=== PATIENT | male | born 1960 | race Caucasian/White ===

== ENCOUNTER 2019-05-09 08:07 | Inpatient (IN) | payer MEDICARE, OTHER ==
[2019-05-09] MEDS ORDERED: Acetaminophen 500 MG TAB ONE (08:46)
[2019-05-09] MEDS ORDERED: cefTRIAXone\\ROCEPHIN 1 GM VIAL ONE (08:46)
[2019-05-09 09:18] LABS: #Eosinphils 0.2 thou/uL (0.0-0.7); #Lymphocytes 0.8 thou/uL (1.20-3.40); #Monocytes 0.6 thou/uL (0.11-0.59); #Neutrophils 2.8 thou/uL (1.40-6.50); %Basophils 0.7 % (0.0-1.0); %Eosinophils 3.6 % (0.0-10.0); %Lymphocytes 18.1 % (21.0-51.0); %Monocytes 14.5 % (0.0-10.0); %Neutrophils 63.1 % (42.0-75.0); Hemoglobin 13.3 g/dL (14.0-18.0); Mean Corpuscular HGB CONC 32.8 g/dL (32.0-36.0); Mean Corpuscular Hemoglobin 29.1 pg (27.0-31.0); Mean Corpuscular Volume 88.8 fL (78.0-98.0); Mean Platelet Volume 7.6 fL (7.4-10.4); Platelet Count 161 thou/uL (130-400); RBC Distribution Width 16.8 % (11.5-14.5); Red Blood Cell (RBC) Count 4.56 mill/uL (4.70-6.10); White Blood Cell (WBC) Count 4.4 thou/uL (4.8-10.8)
--- NOTE | 2019-05-09 09:28 | RAD ---
EXAM: Single view of the chest HISTORY: Chest pain COMPARISON: 08/17/2016 FINDINGS: Single view of the chest shows an enlarged but stable cardiomediastinal silhouette. The pa tient is status post sternotomy. The pacemaker is unchanged in position. There is no evidence of consolidation, mass, or pleural effusion. The bones are unremarkable. IMPRESSION: Cardiomegaly without evidence of acute cardiopulmonary disease
[2019-05-09 09:38] LABS: ALT (SGPT) 8 U/L (8-55); AST (SGOT) 21 U/L (5-34); Albumin 3.6 g/dL (3.4-4.8); Alkaline Phosphatase 114 U/L (40-150); Anion Gap 14 mmol/L (10-20); BUN (Urea Nitrogen) 28 mg/dL (8.4-25.7); Bilirubin, Total 1.5 mg/dL (0.2-1.2); Calc. Creatinine Clearance 0 mL/min (70-130); Calcium 9.7 mg/dL (7.8-10.44); Carbon Dioxide 28 mmol/L (23-31); Chloride 100 mmol/L (98-107); Estimated GFR-MDRD 73; Globulin 4.6 g/dL (2.4-3.5); Glucose 112 mg/dL (80-115); Potassium 3.1 mmol/L (3.5-5.1); Protein, Total 8.2 g/dL (5.8-8.1); Sodium 139 mmol/L (136-145)
[2019-05-09] MEDS ORDERED: Potassium Chloride 20 MEQ TAB ONE (11:29)
[2019-05-09] MEDS ORDERED: traMADol HCl 50 MG TAB ONE (11:29)
[2019-05-09 11:42] LABS: Bilirubin Negative (Negative); Blood, Urine Negative (Negative); Clarity Clear (Clear); Glucose, Urine (Dipstick) Normal (Negative); Leukocyte Negative Leu/uL (Negative); Nitrite Negative (Negative); Protein, Urine (Dipstick) 20 mg/dL (Neg-Trace); Urobilinogen 3 mg/dL (Less than 2)
[2019-05-09 12:13] LABS: Troponin I 0.019 ng/mL (< 0.028)
[2019-05-09] MEDS ORDERED: Ondansetron ODT 4 MG TAB PO PRN (13:25)
[2019-05-09] MEDS ORDERED: Acetaminophen 325 MG TAB PO PRN (13:25)
[2019-05-09] MEDS ORDERED: Ondansetron PF 4 MG/2 ML Vial IVP PRN (13:25)
[2019-05-09 15:11] LABS: Troponin I Less than 0.010 ng/mL (< 0.028)
[2019-05-09] MEDS ORDERED: Bisacodyl 10 MG SUPP PR PRN (15:37)
[2019-05-09] MEDS ORDERED: HYDROcodone/Acetaminophen 5/325 mg Tablet PO PRN (15:37)
[2019-05-09] MEDS ORDERED: Enoxaparin Sodium 40 MG/0.4 ML SYRINGE SC SCH (15:45)
[2019-05-09] MEDS ORDERED: Nystatin Powder 15 GM BOT TOP PRN (15:47)
[2019-05-09] MEDS ORDERED: Furosemide 40 MG/4 ML VIAL SLOW IVP SCH (16:00)
--- NOTE | 2019-05-09 17:09 | HP ---
PRIMARY CARE PROVIDER: None. CHIEF COMPLAINT: Worsening leg swelling and right leg pain. HISTORY OF PRESENT ILLNESS: A 59-year-old morbidly obese male patient with known history of ischemic cardiomyopathy with ejection fraction of 35% on last each echo, amongst others including chronic venous insufficiency, who presents with worsening leg swelling as well as worsening right leg pain. The patient reportedly developed a blister on the right anterior black several days ago. Last night, he reportedly scrapped the area while getting into his bed and de-roofed the blister and has been having severe pain rated 9 to 10/10 since last night. He presented to the emergency room earlier today due to worsening pain. He was found to have some erythema and some drainage suggestive of cellulitis and was given antibiotics as well as analgesic. He was admitted for further evaluation and treatment. The patient reportedly missed none out of his diuretics and noticed worsening leg swelling. He however denied chest pain, worsening shortness of breath, palpitation, headache, fevers, chills, nausea, vomiting, dysuria, hematuria, change in bowel habit, or abdominal pain. PAST MEDICAL HISTORY: 1. Ischemic cardiomyopathy with ejection fraction of 30% to 35% on echo of 2016. 2. Coronary artery disease status post CABG. 3. Type 2 diabetes mellitus. 4. Morbid obesity. 5. Dyslipidemia. 6. Hypertension. 7. PTSD. 8. Mood disorder. 9. Depression. 10. Chronic venous stasis dermatitis. 11. Chronic bilateral leg edema. 12. Chronic paroxysmal atrial fibrillation. PAST SURGICAL HISTORY: 1. CABG. 2. Hernia repair. 3. Left thoracentesis. 4. Pacemaker placement. 5. Appendectomy. 6. Tonsillectomy. FAMILY HISTORY: Significant for diabetes in the family. SOCIAL HISTORY: 1. The patient lives alone. He however used to be homeless. He travels between [place] and [place]. 2. He smokes currently 10 cigarettes per day. 3. He denied recreational drug use. 4. He wants to be full code with his friend Sal Trinh as the surrogate decision maker. ALLERGIES: NO KNOWN DRUG ALLERGIES REPORTED. HOME MEDICATIONS: 1. Amiodarone 200 mg p.o. daily. 2. Aspirin 81 mg p.o. daily. 3. Lipitor 80 mg p.o. daily. 4. Carvedilol 3.125 p.o. b.i.d. 5. Enalapril 2.5 mg p.o. daily. 6. Lasix 80 mg p.o. daily. 7. Gabapentin 300 mg p.o. daily at bedtime. 8. Metolazone 10 mg p.o. daily. 9. Potassium chloride 10 mEq p.o. b.i.d. Review of previous hospitalization showed the patient has been on spironolactone and anticoagulation, but that is not reflected in current home medication. REVIEW OF SYSTEMS: A 12-point review of system performed was negative other than pertinent positives and negatives included in the history of present illness. PHYSICAL EXAMINATION: VITAL SIGNS: On presentation to the emergency room, initial vitals showed BP 108/73, pulse 75, respiratory rate 95, SpO2 of 95% on room air, temperature 97.5. Most recent vitals showed temperature 98.1, pulse 73, respiratory rate 18, SpO2 of 92 on room air, blood pressure 133/86. GENERAL: Morbidly obese male, in no obvious distress. Afebrile. Anicteric. Acyanotic. HEENT: Normocephalic, atraumatic. Pupils are reacting to light. Oral mucosa is moist. NECK: Supple, nontender with full range of motion. Mild JVD noted. No lymphadenopathy or masses appreciated. CARDIOLOGY: Regular rhythm and rate with soft systolic murmur. RESPIRATORY: Fair air entry bilaterally with few transmitted sounds. No obvious crackle or respiratory distress was appreciated. Air entry however is decreased at both bases. GI: Morbidly obese with pannus and intertriginous candidiasis. Bowel sound is normoactive. EXTREMITIES: Moderate bilateral leg edema with some chronic venous stasis dermatitis as well as some crust and scabs, especially on the left side. A large de-roofed blister with some erythema is noted on the right side. Some excoriations with some drainage are also noticed on the posterior aspect of right leg. NEUROLOGIC: Conscious, alert, oriented x3 with appropriate mental status. Cranial nerves 2 through 12 are grossly intact. DIAGNOSTIC DATA: CBC showed WBC count of 4.4, hemoglobin of 13.3, MCV of 88.8, platelets of 161. BMP showed sodium 139, potassium 3.1, chloride 100, CO2 of 28, BUN 28, creatinine 1.03, glucose 112, calcium 9.7, total bilirubin 1.5, AST 21, ALT alkaline phosphatase 114, total protein 8.2, albumin 3.6, globulin 4.6. Cardiac markers showed negative serial troponin with BNP of 796.9. Urinalysis showed clear urine with pH of 6.0, specific gravity of 1.022, urine protein of 20 mg/dL, normal glucose, negative ketone blood, bilirubin, leukocyte esterase and nitrite. EKG showed paced rhythm. Chest x-ray showed stable cardiomegaly with no evidence of consolidation, mass, or pleural effusion. ASSESSMENT: 1. Acute on chronic combined systolic and diastolic heart failure. 2. Ischemic cardiomyopathy with ejection fraction of 30% to 35% on EKG of 2016. 3. Right leg wound with infection and cellulitis. 4. Chronic bilateral leg edema with chronic venous stasis dermatitis and skin breakdown. 5. Morbid obesity. 6. Intertriginous candidiasis. PLAN: 1. We will start diuretic therapy with Lasix 40 mg IV b.i.d. 2. We will also start antibiotic therapy with clindamycin 600 mg every 8 hours. 3. Wound Care will be consulted to help with wound management. 4. We will also get echocardiogram to reassess cardiac function. 5. We will elevate both lower extremities. 6. We will monitor renal function with diuretic therapy. 7. We will continue RAAS aris as well as beta aris and statin. 8. PT/OT will be consulted to help ambulate the patient. 9. DVT prophylaxis with Lovenox will be provided. 10. Cardiac diet will be provided as well. 11. The patient wants to be full code. Friend Sal is the surrogate decision maker. 12. It is anticipated that the patient will be hospitalized for more than three midnights. Job ID: [id number]
[2019-05-09] MEDS: Nicotine 14 MG PATCH TD SCH (17:31)
[2019-05-09] MEDS: Zolpidem Tartrate 5 MG TAB PO PRN (20:40)
[2019-05-09] MEDS: traMADol HCl 50 MG TAB PO PRN (20:41)
[2019-05-09] MEDS: Famotidine 20 MG TAB PO SCH (20:42)
[2019-05-09] MEDS: Clindamycin/D5W 600 MG in Premix Bag 1 BAG IVPB SCH (20:44)
[2019-05-10] MEDS: Clindamycin/D5W 600 MG in Premix Bag 1 BAG IVPB SCH ×3 (07:11→20:30)
[2019-05-10] MEDS ORDERED: Clindamycin/D5W 600 mg/50 ml Premix Bag ONE (07:13)
[2019-05-10] MEDS: Famotidine 20 MG TAB PO SCH ×2 (09:09→20:29)
[2019-05-10] MEDS: Furosemide 40 MG/4 ML VIAL SLOW IVP SCH ×2 (09:09→15:22)
[2019-05-10 09:39] LABS: ALT (SGPT) 8 U/L (8-55); AST (SGOT) 19 U/L (5-34); Albumin 3.5 g/dL (3.4-4.8); Alkaline Phosphatase 109 U/L (40-150); Anion Gap 10 mmol/L (10-20); BUN (Urea Nitrogen) 22 mg/dL (8.4-25.7); Bilirubin, Total 1.6 mg/dL (0.2-1.2); Calc. Creatinine Clearance 223 mL/min (70-130); Calcium 9.5 mg/dL (7.8-10.44); Carbon Dioxide 30 mmol/L (23-31); Chloride 100 mmol/L (98-107); Estimated GFR-MDRD 78; Globulin 4.4 g/dL (2.4-3.5); Glucose 120 mg/dL (80-115); Potassium 3.5 mmol/L (3.5-5.1); Protein, Total 7.9 g/dL (5.8-8.1); Sodium 136 mmol/L (136-145)
--- NOTE | 2019-05-10 10:42 | PDOC.HOSPP ---
- Subjective Encounter Date: 05/10/19 Encounter Time: 10:41 Subjective: 59 y/o morbidly obese male with chronic CHF and chronic bilateral venous insufficiency admitted due to worsening leg swelling and right leg wound and pain. Started on antibiotic for possible cellulitis as well as diuretic for CHF exacerbation. Feeling better. - Objective Vital Signs & Weight: Vital Signs (12 hours) Temp Pulse Resp BP Pulse Ox 05/10/19 07:35 98.5 F 71 18 110/75 93 L 05/10/19 03:45 98.4 F 75 20 119/69 93 L 05/10/19 00:03 73 18 147/63 H 95 Weight Weight 438 lb 6.4 oz I&O: 05/09/19 05/10/19 05/11/19 06:59 06:59 06:59 Intake Total 600 Balance 600 Result Diagrams: 05/09/19 08:45 05/10/19 09:08 ROS - Medication Medications: Active Medications Generic Name Dose Route Start Last Admin Trade Name Freq PRN Reason Stop Dose Admin Famotidine 20 mg 05/09/19 21:00 05/10/19 09:09 Pepcid PO 20 mg BID MIYA Administration Furosemide 40 mg 05/10/19 06:00 05/10/19 09:09 Lasix SLOW IVP 40 mg 0600,1400 MIYA Administration Clindamycin Phosphate/Dextrose 50 mls @ 100 mls/hr 05/09/19 22:00 05/10/19 07 :11 600 mg/ Device IVPB 50 mls Q8HR MIYA Administration Nicotine 14 mg 05/09/19 17:00 05/09/19 17:31 Nicoderm Patch TD 14 mg 1700 MIYA Administration Sodium Chloride 10 ml 05/09/19 21:00 05/10/19 09:10 Flush - Normal Saline IVF 10 ml Q12HR MIYA Administration Tramadol HCl 50 mg 05/09/19 19:58 05/09/19 20:41 Ultram PO 50 mg Q6H PRN Administration Pain Zolpidem Tartrate 5 mg 05/09/19 15:48 05/09/19 20:40 Ambien PO 5 mg HSPRN PRN Administration Insomnia - Exam awake alert General - other findings: morbidly obese Eye: anicteric sclera ENT: normocephalic atraumatic Neck: symmetric Heart: RRR Respiratory - other findings: fair air entry bilaterally. No diistress Gastrointestinal: soft, normal bowel sounds Gastrointestinal - other findings: morbidly obese with pannus. Extremeties - other findings: bilateral chronic venous stasis changes with mild edema. Neurological: CN's grossly intact, no focal deficits Psychiatric: normal affect, A&O x 3 Hosp A/P (1) Acute on chronic systolic (congestive) heart failure Code(s): I50.23 - ACUTE ON CHRONIC SYSTOLIC (CONGESTIVE) HEART FAILURE Status : Acute (2) Cellulitis of right leg Code(s): L03.115 - CELLULITIS OF RIGHT LOWER LIMB Status: Acute (3) Chronic venous stasis dermatitis of both lower extremities Code(s): I87.2 - VENOUS INSUFFICIENCY (CHRONIC) (PERIPHERAL) Status: Acute (4) Morbid obesity Code(s): E66.01 - MORBID (SEVERE) OBESITY DUE TO EXCESS CALORIES Status: Acute (5) Atrial fibrillation Code(s): I48.91 - UNSPECIFIED ATRIAL FIBRILLATION Status: Chronic (6) CAD (coronary artery disease) Code(s): I25.10 - ATHSCL HEART DISEASE OF [place] CORONARY ARTERY W/O ANG PCTRS Status: Chronic Qualifiers: Coronary Disease-Associated Artery/Lesion type: bypass graft [place] vs. transplanted heart: [place] heart Associated angina: without angina Qualified Code(s): I25.810 - Atherosclerosis of coronary artery bypass graft(s) without angina pectoris (7) DM type 2 (diabetes mellitus, type 2) Status: Chronic Qualifiers: Diabetes mellitus complication status: without complication (8) HTN (hypertension) Code(s): I10 - ESSENTIAL (PRIMARY) HYPERTENSION Status: Chronic Qualifiers: Hypertension type: essential hypertension Qualified Code(s): I10 - Essential (primary) hypertension - Plan Continue antibiotic therapy with IV clindamycin Continue IV diuretic and monitor I/O, daily weights and renal function Continue other treatments.
[2019-05-10] MEDS: Nicotine 14 MG PATCH TD SCH (16:35)
[2019-05-10] MEDS: Senokot S 8.6-50 MG TAB PO PRN (18:39)
[2019-05-10] MEDS: traMADol HCl 50 MG TAB PO PRN (20:29)
[2019-05-10] MEDS: Zolpidem Tartrate 5 MG TAB PO PRN (21:29)
[2019-05-11] MEDS: Clindamycin/D5W 600 MG in Premix Bag 1 BAG IVPB SCH ×3 (06:39→21:43)
[2019-05-11] MEDS: Furosemide 40 MG/4 ML VIAL SLOW IVP SCH (08:47)
[2019-05-11] MEDS: Famotidine 20 MG TAB PO SCH ×2 (08:47→21:42)
[2019-05-11] MEDS: Senokot S 8.6-50 MG TAB PO PRN (09:08)
[2019-05-11 09:45] LABS: Anion Gap 14 mmol/L (10-20); BUN (Urea Nitrogen) 24 mg/dL (8.4-25.7); Calc. Creatinine Clearance 200 mL/min (70-130); Calcium 9.6 mg/dL (7.8-10.44); Carbon Dioxide 25 mmol/L (23-31); Chloride 97 mmol/L (98-107); Estimated GFR-MDRD 69; Glucose 127 mg/dL (80-115); Potassium 3.1 mmol/L (3.5-5.1); Sodium 133 mmol/L (136-145)
[2019-05-11] MEDS ORDERED: Potassium Chloride 20 MEQ TAB PO SCH (14:00)
--- NOTE | 2019-05-11 14:01 | PDOC.HOSPP ---
- Subjective Encounter Date: 05/11/19 Encounter Time: 10:01 Subjective: 59 y/o morbidly obese male with chronic CHF and chronic bilateral venous insufficiency admitted due to worsening leg swelling and right leg wound and pain. Started on antibiotic for possible cellulitis as well as diuretic for CHF exacerbation. Feeling better. No new problem. - Objective Vital Signs & Weight: Vital Signs (12 hours) Temp Pulse Resp BP Pulse Ox 05/11/19 11:34 98.2 F 91 16 123/69 92 L 05/11/19 08:00 99.0 F 90 16 128/73 91 L 05/11/19 03:30 98.6 F 69 18 110/74 93 L Weight Admit Weight 444 lb 9.6 oz Weight 438 lb 6.4 oz I&O: 05/10/19 05/11/19 05/12/19 06:59 06:59 06:59 Intake Total 600 Balance 600 Result Diagrams: 05/09/19 08:45 05/11/19 08:51 ROS - Medication Medications: Active Medications Generic Name Dose Route Start Last Admin Trade Name Freq PRN Reason Stop Dose Admin Famotidine 20 mg 05/09/19 21:00 05/11/19 08:47 Pepcid PO 20 mg BID MIYA Administration Clindamycin Phosphate/Dextrose 50 mls @ 100 mls/hr 05/09/19 22:00 05/11/19 06 :39 600 mg/ Device IVPB 50 mls Q8HR MIYA Administration Nicotine 14 mg 05/09/19 17:00 05/10/19 16:35 Nicoderm Patch TD Not Given 1700 MIYA Senna/Docusate Sodium 2 tab 05/09/19 15:37 05/11/19 09:08 Senokot S PO 2 tab BID PRN Administration Constipation Sodium Chloride 10 ml 05/09/19 21:00 05/11/19 08:48 Flush - Normal Saline IVF 10 ml Q12HR MIYA Administration Tramadol HCl 50 mg 05/09/19 19:58 05/10/19 20:29 Ultram PO 50 mg Q6H PRN Administration Pain Zolpidem Tartrate 5 mg 05/09/19 15:48 05/10/19 21:29 Ambien PO 5 mg HSPRN PRN Administration Insomnia - Exam awake alert General - other findings: morbidly obese Eye: anicteric sclera ENT: normocephalic atraumatic Neck: supple, symmetric Heart: RRR Respiratory: no wheezes, no ronchi Respiratory - other findings: fair air entry bilaterally Gastrointestinal: soft, non-tender, non-distended, normal bowel sounds ( morbidly obese with pannus) Extremities: no cyanosis Extremeties - other findings: trace bilateral leg edema Skin - other findings: bilateral chronic venous stasis dermatitis with some skin breakdown Neurological: CN's grossly intact Neurological - other findings: ambulant with walker Psychiatric: normal affect, A&O x 3 Hosp A/P (1) Acute on chronic systolic (congestive) heart failure Code(s): I50.23 - ACUTE ON CHRONIC SYSTOLIC (CONGESTIVE) HEART FAILURE Status : Acute (2) Cellulitis of right leg Code(s): L03.115 - CELLULITIS OF RIGHT LOWER LIMB Status: Acute (3) Chronic venous stasis dermatitis of both lower extremities Code(s): I87.2 - VENOUS INSUFFICIENCY (CHRONIC) (PERIPHERAL) Status: Acute (4) Morbid obesity Code(s): E66.01 - MORBID (SEVERE) OBESITY DUE TO EXCESS CALORIES Status: Acute (5) Atrial fibrillation Code(s): I48.91 - UNSPECIFIED ATRIAL FIBRILLATION Status: Chronic (6) CAD (coronary artery disease) Code(s): I25.10 - ATHSCL HEART DISEASE OF [place] CORONARY ARTERY W/O ANG PCTRS Status: Chronic Qualifiers: Coronary Disease-Associated Artery/Lesion type: bypass graft [place] vs. transplanted heart: [place] heart Associated angina: without angina Qualified Code(s): I25.810 - Atherosclerosis of coronary artery bypass graft(s) without angina pectoris (7) DM type 2 (diabetes mellitus, type 2) Status: Chronic Qualifiers: Diabetes mellitus complication status: without complication (8) HTN (hypertension) Code(s): I10 - ESSENTIAL (PRIMARY) HYPERTENSION Status: Chronic Qualifiers: Hypertension type: essential hypertension Qualified Code(s): I10 - Essential (primary) hypertension (9) Hypokalemia Code(s): E87.6 - HYPOKALEMIA Status: Acute - Plan Continue antibiotic therapy with IV clindamycin Change diuretic to spironolactone and bumex. Replete serum potassium Continue other treatments. Case mgt for home health. Possible discharge tomorrow.
[2019-05-11] MEDS: Bumetanide 1 MG TAB PO SCH (16:23)
[2019-05-11] MEDS: Nicotine 14 MG PATCH TD SCH (16:24)
[2019-05-11] MEDS: Zolpidem Tartrate 5 MG TAB PO PRN (22:43)
[2019-05-11] MEDS: traMADol HCl 50 MG TAB PO PRN (22:43)
[2019-05-12 05:10] LABS: Anion Gap 15 mmol/L (10-20); BUN (Urea Nitrogen) 24 mg/dL (8.4-25.7); Calc. Creatinine Clearance 198 mL/min (70-130); Calcium 9.1 mg/dL (7.8-10.44); Carbon Dioxide 29 mmol/L (23-31); Chloride 97 mmol/L (98-107); Estimated GFR-MDRD 68; Glucose 121 mg/dL (80-115); Magnesium 1.9 mg/dL (1.6-2.6); Potassium 3.6 mmol/L (3.5-5.1); Sodium 137 mmol/L (136-145)
[2019-05-12] MEDS: Clindamycin/D5W 600 MG in Premix Bag 1 BAG IVPB SCH ×3 (05:56→21:36)
[2019-05-12] MEDS: Bumetanide 1 MG TAB PO SCH ×2 (09:35→18:37)
[2019-05-12] MEDS: Famotidine 20 MG TAB PO SCH ×2 (09:35→22:52)
[2019-05-12] MEDS: Spironolactone 25 MG TAB PO SCH (09:35)
[2019-05-12] MEDS ORDERED: Lisinopril 2.5 MG TAB PO SCH (10:45)
[2019-05-12] MEDS: Nicotine 14 MG PATCH TD SCH (18:37)
--- NOTE | 2019-05-12 20:54 | PDOC.HOSPP ---
- Subjective Encounter Date: 05/12/19 Encounter Time: 14:53 Subjective: 59 y/o morbidly obese male with chronic CHF and chronic bilateral venous insufficiency admitted due to worsening leg swelling and right leg wound and pain. Started on antibiotic for possible cellulitis as well as diuretic for CHF exacerbation. Feeling better. No new problem. - Objective Vital Signs & Weight: Vital Signs (12 hours) Temp Pulse Resp BP Pulse Ox 05/12/19 16:00 97.9 F 71 18 122/71 96 05/12/19 13:15 75 Weight Admit Weight 444 lb 9.6 oz Weight 438 lb 6.4 oz I&O: 05/11/19 05/12/19 05/13/19 06:59 06:59 06:59 Intake Total 1420 720 Output Total 0930 6700 Balance -1005 -9480 Result Diagrams: 05/09/19 08:45 05/12/19 04:20 ROS - Medication Medications: Active Medications Generic Name Dose Route Start Last Admin Trade Name Freq PRN Reason Stop Dose Admin Bumetanide 1 mg 05/11/19 16:30 05/12/19 18:37 Bumex PO Not Given BID-AC MIYA Famotidine 20 mg 05/09/19 21:00 05/12/19 09:35 Pepcid PO 20 mg BID MIYA Administration Clindamycin Phosphate/Dextrose 50 mls @ 100 mls/hr 05/09/19 22:00 05/12/19 13 :17 600 mg/ Device IVPB Not Given Q8HR MIYA Nicotine 14 mg 05/09/19 17:00 05/12/19 18:37 Nicoderm Patch TD Not Given 1700 MIYA Senna/Docusate Sodium 2 tab 05/09/19 15:37 05/11/19 09:08 Senokot S PO 2 tab BID PRN Administration Constipation Sodium Chloride 10 ml 05/09/19 21:00 05/12/19 09:35 Flush - Normal Saline IVF 10 ml Q12HR MIYA Administration Spironolactone 50 mg 05/12/19 08:00 05/12/19 09:35 Aldactone PO 50 mg QAM-WM MIYA Administration Tramadol HCl 50 mg 05/09/19 19:58 05/11/19 22:43 Ultram PO 50 mg Q6H PRN Administration Pain Zolpidem Tartrate 5 mg 05/09/19 15:48 05/11/19 22:43 Ambien PO 5 mg HSPRN PRN Administration Insomnia - Exam awake alert General - other findings: obese Eye: anicteric sclera ENT: normocephalic atraumatic, moist mucosa Neck: supple, symmetric Heart: RRR Respiratory: no wheezes, no rales, no ronchi Gastrointestinal: soft, non-tender, non-distended, normal bowel sounds Gastrointestinal - other findings: morbidly obese Extremities: no cyanosis, no edema Skin - other findings: chronic bilateral lower extremity venous stasis dermatitis with crust/scab Neurological: CN's grossly intact, no focal deficits Psychiatric: normal affect, A&O x 3 Hosp A/P (1) Acute on chronic systolic (congestive) heart failure Code(s): I50.23 - ACUTE ON CHRONIC SYSTOLIC (CONGESTIVE) HEART FAILURE Status : Acute (2) Cellulitis of right leg Code(s): L03.115 - CELLULITIS OF RIGHT LOWER LIMB Status: Acute (3) Chronic venous stasis dermatitis of both lower extremities Code(s): I87.2 - VENOUS INSUFFICIENCY (CHRONIC) (PERIPHERAL) Status: Acute (4) Morbid obesity Code(s): E66.01 - MORBID (SEVERE) OBESITY DUE TO EXCESS CALORIES Status: Acute (5) Atrial fibrillation Code(s): I48.91 - UNSPECIFIED ATRIAL FIBRILLATION Status: Chronic (6) CAD (coronary artery disease) Code(s): I25.10 - ATHSCL HEART DISEASE OF [place] CORONARY ARTERY W/O ANG PCTRS Status: Chronic Qualifiers: Coronary Disease-Associated Artery/Lesion type: bypass graft [place] vs. transplanted heart: [place] heart Associated angina: without angina Qualified Code(s): I25.810 - Atherosclerosis of coronary artery bypass graft(s) without angina pectoris (7) DM type 2 (diabetes mellitus, type 2) Status: Chronic Qualifiers: Diabetes mellitus complication status: without complication (8) HTN (hypertension) Code(s): I10 - ESSENTIAL (PRIMARY) HYPERTENSION Status: Chronic Qualifiers: Hypertension type: essential hypertension Qualified Code(s): I10 - Essential (primary) hypertension (9) Hypokalemia Code(s): E87.6 - HYPOKALEMIA Status: Acute (10) Ischemic cardiomyopathy Code(s): I25.5 - ISCHEMIC CARDIOMYOPATHY Status: Acute - Plan Continue IV clindamycin Continue spironolactone and bumex. Replete serum potassium as needed Continue other treatments. Consult cardiology.
[2019-05-12] MEDS: Zolpidem Tartrate 5 MG TAB PO PRN (22:52)
[2019-05-12] MEDS: traMADol HCl 50 MG TAB PO PRN (22:52)
[2019-05-12] MEDS: Carvedilol 3.125 MG TAB PO SCH (22:53)
[2019-05-12] MEDS: Atorvastatin Calcium 40 MG TAB PO SCH (22:53)
[2019-05-13 05:32] LABS: #Basophils 0.1 thou/uL (0.0-0.2); #Eosinphils 0.1 thou/uL (0.0-0.7); #Lymphocytes 0.8 thou/uL (1.20-3.40); #Monocytes 0.6 thou/uL (0.11-0.59); #Neutrophils 3.3 thou/uL (1.40-6.50); %Basophils 1.5 % (0.0-1.0); %Eosinophils 1.5 % (0.0-10.0); %Lymphocytes 16.8 % (21.0-51.0); %Monocytes 11.5 % (0.0-10.0); %Neutrophils 68.7 % (42.0-75.0); Hemoglobin 12.6 g/dL (14.0-18.0); Mean Corpuscular Hemoglobin 27.9 pg (27.0-31.0); Mean Platelet Volume 7.8 fL (7.4-10.4); Platelet Count 164 thou/uL (130-400); RBC Distribution Width 17.1 % (11.5-14.5); Red Blood Cell (RBC) Count 4.49 mill/uL (4.70-6.10); White Blood Cell (WBC) Count 4.9 thou/uL (4.8-10.8)
[2019-05-13] MEDS: Clindamycin/D5W 600 MG in Premix Bag 1 BAG IVPB SCH ×3 (05:33→21:01)
[2019-05-13 06:01] LABS: Anion Gap 13 mmol/L (10-20); BUN (Urea Nitrogen) 22 mg/dL (8.4-25.7); Calc. Creatinine Clearance 223 mL/min (70-130); Calcium 9.3 mg/dL (7.8-10.44); Carbon Dioxide 28 mmol/L (23-31); Cardiac Risk 3.7 (Less than 4.5); Chloride 98 mmol/L (98-107); Cholesterol 119 mg/dl (< 200 Desired); Estimated GFR-MDRD 78; Glucose 108 mg/dL (80-115); HDL Cholesterol 32 mg/dL (>60 Neg Risk); LDL Cholesterol, Calculated 76 mg/dL; Potassium 3.2 mmol/L (3.5-5.1); Sodium 136 mmol/L (136-145); Triglycerides 55 mg/dL (Less than 150)
[2019-05-13] MEDS: Carvedilol 3.125 MG TAB PO SCH ×2 (08:54→21:00)
[2019-05-13] MEDS: Amiodarone 200 MG TAB PO SCH (08:54)
[2019-05-13] MEDS: Spironolactone 25 MG TAB PO SCH ×2 (08:54→20:59)
[2019-05-13] MEDS: Bumetanide 1 MG TAB PO SCH ×2 (08:54→16:30)
[2019-05-13] MEDS: Famotidine 20 MG TAB PO SCH ×2 (08:54→21:01)
[2019-05-13] MEDS: Aspirin 81 mg Enteric Coated Tablet PO SCH (08:55)
[2019-05-13] MEDS ORDERED: Lisinopril 2.5 MG TAB PO SCH (10:00)
--- NOTE | 2019-05-13 10:58 | CON ---
DATE OF CONSULTATION: HISTORY OF PRESENT ILLNESS: Kishore Prather is a 59-year-old white male, admitted with right leg cellulitis and heart failure. In 2011, he was seen by Dr. Rivas. At that time, he had chronic atrial fibrillation and noncompliance with difficulty getting his medications. He would get bradycardic when he would be on carvedilol. Approximately 5 or 6 years ago, he did have a pacemaker placed when he was visiting in [place], [place]. He then underwent CABG x[facility] at [facility] in November 2015. He presented here in May 2016 with progressive shortness of breath and was seen by Dr. Cedrick Ley. There was difficulty in assessing left ventricular function on transthoracic echo. He now is admitted after developing a blister on his right leg and increasing peripheral edema. He denies having been out of any of his medications. His legs are chronically swollen. He denies any chest discomfort. PAST MEDICAL HISTORY: Ischemic cardiomyopathy with ejection fraction as low as 30% to 35% in the past, coronary artery disease, diabetes, morbid obesity, hyperlipidemia, hypertension, posttraumatic stress disorder, depression, paroxysmal atrial fibrillation. PAST SURGICAL HISTORY: CABG, pacemaker placement ([employer]), hernia repair, appendectomy, tonsillectomy. SOCIAL HISTORY: He smokes 10 cigarettes per day. He also smokes marijuana. He has never been . MEDICATIONS: 1. Amiodarone 200 mg daily. 2. Aspirin 81 daily. 3. Atorvastatin 80 mg at bedtime. 4. Carvedilol 3.125 b.i.d. 5. Enalapril 2.5 mg daily. 6. Furosemide 80 mg daily. 7. Gabapentin 300 mg at bedtime. 8. Metolazone 10 mg daily. 9. Potassium 10 mEq b.i.d. ALLERGIES: NONE. REVIEW OF SYSTEMS: Unremarkable except as noted above. PHYSICAL EXAMINATION: VITAL SIGNS: Blood pressure 122/71, pulse 71. HEENT: PERRL. NECK: Supple. CHEST: Clear. CARDIAC: S1 and S2 normal without any S3 or S4. There is 1/6 systolic murmur along the left sternal border. ABDOMEN: Morbidly obese. EXTREMITIES: Revealed 2+ leg edema with chronic venous stasis dermatitis. NEUROLOGIC: Grossly intact. LABORATORY DATA: EKG reveals ventricular pacing with very wide QRS. Hemoglobin 13.3, hematocrit 40.5, white count 4400, platelets 161,000. Sodium 137, potassium 3.6, chloride 97, carbon dioxide 29, BUN 24, creatinine 1.10. Cardiac enzymes x3 are normal. BNP 796.9. Echocardiogram was technically difficult. Ejection fraction appeared to be moderately depressed; however, could not be adequately ascertained. There was mild mitral regurgitation, and moderate tricuspid regurgitation. IMPRESSION: 1. Probable right leg cellulitis. 2. Acute on chronic combined systolic and diastolic heart failure. 3. Ischemic cardiomyopathy with difficulty in ascertaining ejection fraction. 4. What appears to be chronic right ventricular pacing. 5. Status post dual-chamber pacemaker placement ([employer]). 6. Status post coronary artery bypass grafting x3 in [place]. 7. Morbid obesity. 8. Hypertension. 9. Hypercholesterolemia. 10. Diabetes. PLAN: The situation was discussed with Mr. Prather. There was a great degree of difficulty in assessing his left ventricular function. I am concerned about his ejection fraction and chronic right ventricular pacing. We did discuss possibility of transesophageal echo to better define his left ventricular function. If his ejection fraction is below 35%, then he certainly may benefit from a resynchronization defibrillator. He is contemplating this and arrangements will be made to proceed with transesophageal echo if he wishes to proceed. Job ID: [id number] [facility]
[2019-05-13] MEDS: Potassium Chloride 20 MEQ TAB PO SCH ×2 (13:30→16:30)
--- NOTE | 2019-05-13 13:57 | PDOC.HOSPP ---
- Subjective Encounter Date: 05/13/19 Encounter Time: 09:55 Subjective: 59 y/o morbidly obese male with chronic CHF and chronic bilateral venous insufficiency admitted due to worsening leg swelling and right leg wound and pain. Started on antibiotic for possible cellulitis as well as diuretic for CHF exacerbation. Feeling better. Seen by cardiology and PRAVEEN is contemplated for adequate eval of heart function. No new problem. - Objective Vital Signs & Weight: Vital Signs (12 hours) Temp Pulse Resp BP BP Pulse Ox 05/13/19 13:23 69 05/13/19 12:00 97.6 F 69 18 159/62 H 99 05/13/19 08:00 98.0 F 47 L 18 120/67 97 05/13/19 04:00 98 F 72 18 110/66 95 Weight Admit Weight 444 lb 9.6 oz Weight 438 lb 6.4 oz I&O: 05/12/19 05/13/19 05/14/19 06:59 06:59 06:59 Intake Total 1420 1300 480 Output Total 2425 2950 Balance -1005 -1650 480 Result Diagrams: 05/13/19 04:48 05/13/19 04:48 ROS - Medication Medications: Active Medications Generic Name Dose Route Start Last Admin Trade Name Freq PRN Reason Stop Dose Admin Amiodarone HCl 200 mg 05/13/19 09:00 05/13/19 08:54 Cordarone PO 200 mg DAILY MIYA Administration Aspirin 81 mg 05/13/19 09:00 05/13/19 08:55 Ecotrin PO 81 mg DAILY MIYA Administration Atorvastatin Calcium 80 mg 05/12/19 21:00 05/12/19 22:53 Lipitor PO 80 mg HS MIYA Administration Bumetanide 1 mg 05/11/19 16:30 05/13/19 08:54 Bumex PO 1 mg BID-AC MIYA Administration Carvedilol 3.125 mg 05/12/19 21:00 05/13/19 08:54 Coreg PO 3.125 mg BID MIYA Administration Famotidine 20 mg 05/09/19 21:00 05/13/19 08:54 Pepcid PO 20 mg BID MIYA Administration Clindamycin Phosphate/Dextrose 50 mls @ 100 mls/hr 05/09/19 22:00 05/13/19 13 :23 600 mg/ Device IVPB 50 mls Q8HR MIYA Administration Lisinopril 5 mg 05/13/19 10:00 05/13/19 13:23 Zestril PO 05/13/19 16:00 5 mg NOW MIYA Administration Nicotine 14 mg 05/09/19 17:00 05/12/19 18:37 Nicoderm Patch TD Not Given 1700 MIYA Potassium Chloride 40 meq 05/13/19 10:00 05/13/19 13:30 K-Dur PO 05/13/19 14:01 40 meq Q4H MIYA Administration Senna/Docusate Sodium 2 tab 05/09/19 15:37 05/11/19 09:08 Senokot S PO 2 tab BID PRN Administration Constipation Sodium Chloride 10 ml 05/09/19 21:00 05/13/19 08:55 Flush - Normal Saline IVF 10 ml Q12HR MIYA Administration Spironolactone 50 mg 05/12/19 08:00 05/13/19 08:54 Aldactone PO 50 mg QAM-WM MIYA Administration Tramadol HCl 50 mg 05/09/19 19:58 05/12/19 22:52 Ultram PO 50 mg Q6H PRN Administration Pain Zolpidem Tartrate 5 mg 05/09/19 15:48 05/12/19 22:52 Ambien PO 5 mg HSPRN PRN Administration Insomnia - Exam awake alert General - other findings: morbidly obese Eye: anicteric sclera ENT: normocephalic atraumatic, moist mucosa Neck: supple Heart: RRR Respiratory: no wheezes, no ronchi Respiratory - other findings: fair air entry bilaterally Gastrointestinal: soft, non-tender, normal bowel sounds Gastrointestinal - other findings: morbidly obese with pannus Extremities: no cyanosis, no edema Skin - other findings: Chronic venous stasis dermatitis noted Neurological: CN's grossly intact, no focal deficits Psychiatric: normal affect, A&O x 3 Hosp A/P (1) Acute on chronic systolic (congestive) heart failure Code(s): I50.23 - ACUTE ON CHRONIC SYSTOLIC (CONGESTIVE) HEART FAILURE Status : Acute (2) Cellulitis of right leg Code(s): L03.115 - CELLULITIS OF RIGHT LOWER LIMB Status: Acute (3) Chronic venous stasis dermatitis of both lower extremities Code(s): I87.2 - VENOUS INSUFFICIENCY (CHRONIC) (PERIPHERAL) Status: Acute (4) Morbid obesity Code(s): E66.01 - MORBID (SEVERE) OBESITY DUE TO EXCESS CALORIES Status: Acute (5) Atrial fibrillation Code(s): I48.91 - UNSPECIFIED ATRIAL FIBRILLATION Status: Chronic (6) CAD (coronary artery disease) Code(s): I25.10 - ATHSCL HEART DISEASE OF [place] CORONARY ARTERY W/O ANG PCTRS Status: Chronic Qualifiers: Coronary Disease-Associated Artery/Lesion type: bypass graft [place] vs. transplanted heart: [place] heart Associated angina: without angina Qualified Code(s): I25.810 - Atherosclerosis of coronary artery bypass graft(s) without angina pectoris (7) DM type 2 (diabetes mellitus, type 2) Status: Chronic Qualifiers: Diabetes mellitus complication status: without complication (8) HTN (hypertension) Code(s): I10 - ESSENTIAL (PRIMARY) HYPERTENSION Status: Chronic Qualifiers: Hypertension type: essential hypertension Qualified Code(s): I10 - Essential (primary) hypertension (9) Hypokalemia Code(s): E87.6 - HYPOKALEMIA Status: Acute (10) Ischemic cardiomyopathy Code(s): I25.5 - ISCHEMIC CARDIOMYOPATHY Status: Acute (11) Intertriginous candidiasis Code(s): B37.2 - CANDIDIASIS OF SKIN AND NAIL Status: Acute - Plan Continue diuretic and antibiotics. For PRAVEEN for adequate evaluation of heart function as TTE was inadequate. Continue spironolactone and bumex. Increase aldactone to 50 bid Replete serum potassium as serum potassium is still low Appreciate cardiology input Follow renal function. wound care and PT to continue.
[2019-05-13] MEDS: Nicotine 14 MG PATCH TD SCH (20:51)
[2019-05-13] MEDS: Atorvastatin Calcium 40 MG TAB PO SCH (21:01)
[2019-05-13] MEDS: Zolpidem Tartrate 5 MG TAB PO PRN (22:02)
[2019-05-13] MEDS: traMADol HCl 50 MG TAB PO PRN (22:02)
[2019-05-14] MEDS ORDERED: HYDROcodone/Acetaminophen 5/325 mg Tablet PO SCH (00:15)
[2019-05-14] MEDS: Clindamycin/D5W 600 MG in Premix Bag 1 BAG IVPB SCH ×3 (05:46→21:35)
[2019-05-14 05:56] LABS: Anion Gap 14 mmol/L (10-20); BUN (Urea Nitrogen) 22 mg/dL (8.4-25.7); Calc. Creatinine Clearance 214 mL/min (70-130); Calcium 8.9 mg/dL (7.8-10.44); Carbon Dioxide 27 mmol/L (23-31); Chloride 99 mmol/L (98-107); Estimated GFR-MDRD 74; Glucose 97 mg/dL (80-115); Potassium 3.6 mmol/L (3.5-5.1); Sodium 136 mmol/L (136-145)
[2019-05-14] MEDS: Bumetanide 1 MG TAB PO SCH ×2 (08:22→17:17)
[2019-05-14] MEDS: Aspirin 81 mg Enteric Coated Tablet PO SCH (08:22)
[2019-05-14] MEDS: Lisinopril 5 MG TAB PO SCH (08:23)
[2019-05-14] MEDS: Spironolactone 25 MG TAB PO SCH ×2 (08:23→21:34)
[2019-05-14] MEDS: Amiodarone 200 MG TAB PO SCH (08:23)
[2019-05-14] MEDS: Famotidine 20 MG TAB PO SCH ×2 (08:24→21:34)
[2019-05-14] MEDS: Carvedilol 3.125 MG TAB PO SCH ×2 (08:24→21:34)
[2019-05-14] MEDS ORDERED: Ezetimibe 10 MG TAB PO SCH (11:00)
--- NOTE | 2019-05-14 16:41 | PDOC.HOSPP ---
- Subjective Subjective: Seen and examined. Patient resting in bed in no acute distress. S/p PRAVEEN, official report pending. Patient wants to sleep. No new complaints/ issues. - Objective Vital Signs & Weight: Vital Signs (12 hours) Temp Pulse Resp BP Pulse Ox 05/14/19 15:48 97.8 F 75 18 138/64 92 L 05/14/19 12:00 97.2 F L 70 16 120/68 93 L 05/14/19 08:23 62 05/14/19 08:00 97.5 F L 72 17 103/67 92 L Weight Admit Weight 444 lb 9.6 oz Weight 438 lb 6.4 oz I&O: 05/13/19 05/14/19 05/15/19 06:59 06:59 06:59 Intake Total 1300 1320 Output Total 2950 2950 Balance -1650 -1630 Result Diagrams: 05/13/19 04:48 05/14/19 04:51 ROS - Medication Medications: Active Medications Generic Name Dose Route Start Last Admin Trade Name Rachel PRN Reason Stop Dose Admin Amiodarone HCl 200 mg 05/13/19 09:00 05/14/19 08:23 Cordarone PO 200 mg DAILY MIYA Administration Aspirin 81 mg 05/13/19 09:00 05/14/19 08:22 Ecotrin PO 81 mg DAILY MIYA Administration Atorvastatin Calcium 80 mg 05/12/19 21:00 05/13/19 21:01 Lipitor PO 80 mg HS MIYA Administration Bumetanide 1 mg 05/11/19 16:30 05/14/19 08:22 Bumex PO 1 mg BID-AC MIYA Administration Carvedilol 3.125 mg 05/12/19 21:00 05/14/19 08:24 Coreg PO 3.125 mg BID MIYA Administration Famotidine 20 mg 05/09/19 21:00 05/14/19 08:24 Pepcid PO 20 mg BID MIYA Administration Clindamycin Phosphate/Dextrose 50 mls @ 100 mls/hr 05/09/19 22:00 05/14/19 14 :34 600 mg/ Device IVPB 50 mls Q8HR MIYA Administration Lisinopril 5 mg 05/14/19 09:00 05/14/19 08:23 Zestril PO Not Given DAILY MIYA Nicotine 14 mg 05/09/19 17:00 05/13/19 20:51 Nicoderm Patch TD Not Given 1700 MIYA Senna/Docusate Sodium 2 tab 05/09/19 15:37 05/11/19 09:08 Senokot S PO 2 tab BID PRN Administration Constipation Sodium Chloride 10 ml 05/09/19 21:00 05/14/19 08:24 Flush - Normal Saline IVF 10 ml Q12HR MIYA Administration Spironolactone 50 mg 05/13/19 21:00 05/14/19 08:23 Aldactone PO 50 mg BID MIYA Administration Tramadol HCl 50 mg 05/09/19 19:58 05/13/19 22:02 Ultram PO 50 mg Q6H PRN Administration Pain Zolpidem Tartrate 5 mg 05/09/19 15:48 05/13/19 22:02 Ambien PO 5 mg HSPRN PRN Administration Insomnia - Exam NAD, awake alert Eye: PERRL, anicteric sclera ENT: moist mucosa Neck: supple Heart: RRR, no murmur, no gallops Respiratory: CTAB, no wheezes, no rales, no ronchi Gastrointestinal: soft, non-tender, non-distended, normal bowel sounds Extremities: 2+ LE edema Skin - other findings: Diffuse LE chronic skin changes. Bandages are freshly changed, clean/ Dry Neurological: CN's grossly intact, no focal deficits, no new deficit Musculoskeletal: generalized weakness Psychiatric: A&O x 3 Hosp A/P - Plan old records reviewed/req Plan: Cardiology consultation, recommendations appreciated Further plan of care per cardiology CHF regimen with good improvement of symptoms On IV Clindamycin since 05/09 - will continue through 05/16 Cultures - no growth to date Will likely need sub acute placement on D/c GI and DVT PPX
[2019-05-14] MEDS: Nicotine 14 MG PATCH TD SCH (17:17)
[2019-05-14] MEDS: Zolpidem Tartrate 5 MG TAB PO PRN (21:32)
[2019-05-14] MEDS: traMADol HCl 50 MG TAB PO PRN (21:32)
[2019-05-14] MEDS: Atorvastatin Calcium 40 MG TAB PO SCH (21:34)
[2019-05-15] MEDS: Spironolactone 25 MG TAB PO SCH ×3 (03:24→21:31)
[2019-05-15] MEDS: Clindamycin/D5W 600 MG in Premix Bag 1 BAG IVPB SCH ×3 (06:45→21:28)
--- NOTE | 2019-05-15 11:49 | PDOC.HOSPP ---
- Subjective Subjective: Seen and examined. NPO for PRAVEEN this AM. Patient breathing better. Patient denies pain currently. Still with LE edema, improving cellulitis. - Objective Vital Signs & Weight: Vital Signs (12 hours) Temp Pulse Resp BP BP Pulse Ox 05/15/19 08:00 97.0 F L 75 18 118/73 92 L 05/15/19 04:00 97.8 F 70 20 113/74 Weight Admit Weight 444 lb 9.6 oz Weight 438 lb 6.4 oz I&O: 05/14/19 05/15/19 05/16/19 06:59 06:59 06:59 Intake Total 1320 970 Output Total 2950 1830 Balance -1630 -860 Result Diagrams: 05/13/19 04:48 05/14/19 04:51 ROS - Medication Medications: Active Medications Generic Name Dose Route Start Last Admin Trade Name Freq PRN Reason Stop Dose Admin Amiodarone HCl 200 mg 05/13/19 09:00 05/14/19 08:23 Cordarone PO 200 mg DAILY MIYA Administration Aspirin 81 mg 05/13/19 09:00 05/14/19 08:22 Ecotrin PO 81 mg DAILY MIYA Administration Atorvastatin Calcium 80 mg 05/12/19 21:00 05/14/19 21:34 Lipitor PO 80 mg HS MIYA Administration Bumetanide 1 mg 05/11/19 16:30 05/14/19 17:17 Bumex PO Not Given BID-AC MIYA Carvedilol 3.125 mg 05/12/19 21:00 05/14/19 21:34 Coreg PO 3.125 mg BID MIYA Administration Famotidine 20 mg 05/09/19 21:00 05/14/19 21:34 Pepcid PO 20 mg BID MIYA Administration Clindamycin Phosphate/Dextrose 50 mls @ 100 mls/hr 05/09/19 22:00 05/15/19 06 :45 600 mg/ Device IVPB Not Given Q8HR [facility] Lisinopril 5 mg 05/14/19 09:00 05/14/19 08:23 Zestril PO Not Given DAILY MIYA Nicotine 14 mg 05/09/19 17:00 05/14/19 17:17 Nicoderm Patch TD Not Given 1700 [facility] Senna/Docusate Sodium 2 tab 05/09/19 15:37 05/11/19 09:08 Senokot S PO 2 tab BID PRN Administration Constipation Sodium Chloride 10 ml 05/09/19 21:00 05/14/19 21:35 Flush - Normal Saline IVF 10 ml Q12HR MIYA Administration Spironolactone 50 mg 05/13/19 21:00 05/15/19 03:24 Aldactone PO Not Given BID MIYA Tramadol HCl 50 mg 05/09/19 19:58 05/14/19 21:32 Ultram PO 50 mg Q6H PRN Administration Pain Zolpidem Tartrate 5 mg 05/09/19 15:48 05/14/19 21:32 Ambien PO 5 mg HSPRN PRN Administration Insomnia - Exam NAD, awake alert Eye: PERRL, anicteric sclera ENT: normocephalic atraumatic, moist mucosa Neck: supple, symmetric Heart: no murmur, no gallops Heart - other findings: S1 and S2 present. Respiratory: no wheezes, no ronchi, rales (faint) Respiratory - other findings: Distent breath sounds secondary to body habitus. Gastrointestinal: soft, non-tender, non-distended, normal bowel sounds, no guarding, no rigidity Gastrointestinal - other findings: Elevated BMI Extremities: 2+ LE edema Neurological: CN's grossly intact, no weakness, no focal deficits, no new deficit Musculoskeletal: no muscle wasting, generalized weakness Psychiatric: normal affect, A&O x 3 Hosp A/P - Plan Plan: Cardiology consultation, recommendations appreciated Further plan of care per cardiology NPO for PRAVEEN this AM CHF regimen with good improvement of symptoms Cellulitis improving - On IV Clindamycin since 05/09 - will continue through 05/16 Cultures - no growth to date Will likely need sub acute placement on D/c GI and DVT PPX
[2019-05-15] MEDS ORDERED: PROPOFOL 200 MG/20 ML VIAL ONE (13:02)
[2019-05-15] MEDS ORDERED: Lidocaine 1% PF 5 ML VIAL ONE ×2 (13:02→13:08)
[2019-05-15] MEDS ORDERED: Atropine Sulfate 1 mg/10 ml Syringe ONE (13:08)
[2019-05-15] MEDS ORDERED: PROPOFOL 20 ML ONE (13:08)
[2019-05-15] MEDS: Famotidine 20 MG TAB PO SCH ×2 (16:15→21:30)
[2019-05-15] MEDS: Ezetimibe 10 MG TAB PO SCH (16:15)
[2019-05-15] MEDS: Amiodarone 200 MG TAB PO SCH (16:15)
[2019-05-15] MEDS: Aspirin 81 mg Enteric Coated Tablet PO SCH (16:15)
[2019-05-15] MEDS: Bumetanide 1 MG TAB PO SCH ×2 (16:16)
[2019-05-15] MEDS: Lisinopril 5 MG TAB PO SCH (16:16)
[2019-05-15] MEDS: Carvedilol 3.125 MG TAB PO SCH ×2 (16:16→21:30)
[2019-05-15] MEDS: Nicotine 14 MG PATCH TD SCH (16:17)
[2019-05-15] MEDS: traMADol HCl 50 MG TAB PO PRN (21:28)
[2019-05-15] MEDS: Zolpidem Tartrate 5 MG TAB PO PRN (21:29)
[2019-05-15] MEDS: Atorvastatin Calcium 40 MG TAB PO SCH (21:30)
[2019-05-16] MEDS: Clindamycin/D5W 600 MG in Premix Bag 1 BAG IVPB SCH ×4 (05:27→21:29)
[2019-05-16 06:02] LABS: Anion Gap 13 mmol/L (10-20); BUN (Urea Nitrogen) 22 mg/dL (8.4-25.7); Calc. Creatinine Clearance 220 mL/min (70-130); Calcium 8.9 mg/dL (7.8-10.44); Carbon Dioxide 28 mmol/L (23-31); Chloride 99 mmol/L (98-107); Estimated GFR-MDRD 77; Glucose 98 mg/dL (80-115); Potassium 3.9 mmol/L (3.5-5.1); Sodium 136 mmol/L (136-145)
[2019-05-16] MEDS: Lisinopril 5 MG TAB PO SCH (08:57)
[2019-05-16] MEDS: Ezetimibe 10 MG TAB PO SCH (08:57)
[2019-05-16] MEDS: Bumetanide 1 MG TAB PO SCH ×2 (08:58→14:48)
[2019-05-16] MEDS: Spironolactone 25 MG TAB PO SCH ×2 (08:58→21:29)
[2019-05-16] MEDS: Amiodarone 200 MG TAB PO SCH (08:58)
[2019-05-16] MEDS: Carvedilol 3.125 MG TAB PO SCH ×2 (08:58→21:22)
[2019-05-16] MEDS: Famotidine 20 MG TAB PO SCH ×2 (08:58→21:25)
[2019-05-16] MEDS: Aspirin 81 mg Enteric Coated Tablet PO SCH (08:58)
--- NOTE | 2019-05-16 13:00 | PDOC.HOSPP ---
- Subjective Subjective: Seen and examined. LE wounds improving with wound care. Today is the last day of antibiotics. S/p PRAVEEN, report pending. Breathing well on room air. No acute complaints. - Objective Vital Signs & Weight: Vital Signs (12 hours) Temp Pulse Resp BP BP Pulse Ox 05/16/19 11:58 98.1 F 93 18 114/66 96 05/16/19 08:57 68 119/64 05/16/19 08:00 97.9 F 68 18 119/64 94 L 05/16/19 03:47 97.8 F 74 20 111/58 L 95 Weight Admit Weight 444 lb 9.6 oz Weight 438 lb 6.4 oz I&O: 05/15/19 05/16/19 05/17/19 06:59 06:59 06:59 Intake Total 970 1110 480 Output Total 1830 1850 Balance -860 -740 480 Result Diagrams: 05/13/19 04:48 05/16/19 04:56 ROS - Medication Medications: Active Medications Generic Name Dose Route Start Last Admin Trade Name Rachel PRN Reason Stop Dose Admin Amiodarone HCl 200 mg 05/13/19 09:00 05/16/19 08:58 Cordarone PO 200 mg DAILY MIYA Administration Aspirin 81 mg 05/13/19 09:00 05/16/19 08:58 Ecotrin PO 81 mg DAILY MIYA Administration Atorvastatin Calcium 80 mg 05/12/19 21:00 05/15/19 21:30 Lipitor PO 80 mg HS MIYA Administration Bumetanide 1 mg 05/11/19 16:30 05/16/19 08:58 Bumex PO 1 mg BID-AC MIYA Administration Carvedilol 3.125 mg 05/12/19 21:00 05/16/19 08:58 Coreg PO 3.125 mg BID MIYA Administration Ezetimibe 10 mg 05/15/19 09:00 05/16/19 08:57 Zetia PO 10 mg DAILY MIYA Administration Famotidine 20 mg 05/09/19 21:00 05/16/19 08:58 Pepcid PO 20 mg BID MIYA Administration Clindamycin Phosphate/Dextrose 50 mls @ 100 mls/hr 05/09/19 22:00 05/16/19 05 :27 600 mg/ Device IVPB 50 mls Q8HR MIYA Administration Lisinopril 5 mg 05/14/19 09:00 05/16/19 08:57 Zestril PO 5 mg DAILY MIYA Administration Nicotine 14 mg 05/09/19 17:00 05/15/19 16:17 Nicoderm Patch TD Not Given 1700 MIYA Senna/Docusate Sodium 2 tab 05/09/19 15:37 05/11/19 09:08 Senokot S PO 2 tab BID PRN Administration Constipation Sodium Chloride 10 ml 05/09/19 21:00 05/16/19 08:58 Flush - Normal Saline IVF 10 ml Q12HR MIYA Administration Sodium Chloride 10 ml 05/09/19 13:24 05/16/19 05:28 Flush - Normal Saline IVF 10 ml PRN PRN Administration Saline Flush Spironolactone 50 mg 05/13/19 21:00 05/16/19 08:58 Aldactone PO 50 mg BID MIYA Administration Tramadol HCl 50 mg 05/09/19 19:58 05/15/19 21:28 Ultram PO 50 mg Q6H PRN Administration Pain Zolpidem Tartrate 5 mg 05/09/19 15:48 05/15/19 21:29 Ambien PO 5 mg HSPRN PRN Administration Insomnia - Exam NAD, awake alert Eye: PERRL, anicteric sclera ENT: moist mucosa Neck: supple, no JVD Heart: no gallops Heart - other findings: S1 and S2 present, no appreciable murmur. Heart sounds are faint Respiratory: no wheezes, no rales, no ronchi Respiratory - other findings: Breath sounds faint secondary to BMI Gastrointestinal: soft, non-tender, no guarding, no rigidity Gastrointestinal - other findings: Elevated BMI Extremities: 1+ LE edema Skin - other findings: LE wounds - see wound care pictures for details Neurological: CN's grossly intact, no focal deficits, no new deficit Musculoskeletal: generalized weakness Psychiatric: normal affect, A&O x 3 Hosp A/P (1) Cellulitis of right leg Code(s): L03.115 - CELLULITIS OF RIGHT LOWER LIMB Status: Acute (2) Chronic venous stasis dermatitis of both lower extremities Code(s): I87.2 - VENOUS INSUFFICIENCY (CHRONIC) (PERIPHERAL) Status: Chronic (3) Hypokalemia Code(s): E87.6 - HYPOKALEMIA Status: Resolved (4) Intertriginous candidiasis Code(s): B37.2 - CANDIDIASIS OF SKIN AND NAIL Status: Resolved (5) Ischemic cardiomyopathy Code(s): I25.5 - ISCHEMIC CARDIOMYOPATHY Status: Chronic (6) Chest pain on exertion Code(s): R07.9 - CHEST PAIN, UNSPECIFIED Status: Acute (7) Acute on chronic systolic (congestive) heart failure Code(s): I50.23 - ACUTE ON CHRONIC SYSTOLIC (CONGESTIVE) HEART FAILURE Status : Acute (8) CHF, acute on chronic Code(s): I50.9 - HEART FAILURE, UNSPECIFIED Status: Acute Qualifiers: Qualified Code(s): I50.23 - Acute on chronic systolic (congestive) heart failure (9) Cellulitis and abscess of leg Code(s): L02.419 - CUTANEOUS ABSCESS OF LIMB, UNSPECIFIED; L03.119 - CELLULITIS OF UNSPECIFIED PART OF LIMB Status: Acute (10) Chronic systolic heart failure Code(s): I50.22 - CHRONIC SYSTOLIC (CONGESTIVE) HEART FAILURE Status: Acute (11) Morbid obesity Code(s): E66.01 - MORBID (SEVERE) OBESITY DUE TO EXCESS CALORIES Status: Chronic (12) Atrial fibrillation Code(s): I48.91 - UNSPECIFIED ATRIAL FIBRILLATION Status: Chronic (13) CAD (coronary artery disease) Code(s): I25.10 - ATHSCL HEART DISEASE OF [place] CORONARY ARTERY W/O ANG PCTRS Status: Chronic Qualifiers: Coronary Disease-Associated Artery/Lesion type: bypass graft [place] vs. transplanted heart: [place] heart Associated angina: without angina Qualified Code(s): I25.810 - Atherosclerosis of coronary artery bypass graft(s) without angina pectoris (14) DM type 2 (diabetes mellitus, type 2) Status: Chronic Qualifiers: Diabetes mellitus complication status: with circulatory complication (15) Dyslipidemia Code(s): E78.5 - HYPERLIPIDEMIA, UNSPECIFIED Status: Chronic (16) HTN (hypertension) Code(s): I10 - ESSENTIAL (PRIMARY) HYPERTENSION Status: Chronic Qualifiers: Hypertension type: essential hypertension Qualified Code(s): I10 - Essential (primary) hypertension - Plan Plan: Cardiology consultation, recommendations appreciated Further plan of care per cardiology S/p PRAVEEN, see official report for details CHF regimen with good improvement of symptoms Cellulitis improving - On IV Clindamycin since 05/09 - will continue through 05/16 Cultures - no growth to date Will likely need sub acute placement on D/c BMI 53, based on recorded weight and height GI and DVT PPX
[2019-05-16] MEDS: traMADol HCl 50 MG TAB PO PRN ×2 (13:06→21:23)
--- NOTE | 2019-05-16 13:11 | ECHO ---
TRANSESOPHAGEAL ECHOCARDIOGRAM: DATE OF SERVICE: 05/15/19 PREPROCEDURE DIAGNOSIS: Cardiomyopathy. The anesthesia department provided anesthesia for the patient. Please see their notes for details. After adequate sedation was achieved, the transesophageal probe was inserted into the patient's mouth and into the esophagus, and multiplanar views obtained. FINDINGS: Left ventricle is dilated with reduced LV systolic function. Ejection fraction estimated at about 30% . Inferior hypokinesis. Left atrium is moderately dilated. Left atrial appendage without mass or thrombus. Right atrium is mildly dilated. Right ventricle is normal size with normal systolic function. There is a pacemaker lead seen in the r ight ventricle. Aortic valve has no significant stenosis or regurgitation. Mitral valve has what appears to be a mitral annular ring. There is moderate mitral regurgitation. No significant stenosis. Tricuspid valve is structurally normal. There is moderate TR. Pulmonary valve not well seen. CONCLUSIONS: 1. Technically difficult study. 2. Dilated left ventricle with reduced ejection fraction estimated at about 30%. 3. Inferior hypokinesis. 4. 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 5. Moderate TR.
[2019-05-16] MEDS: Nicotine 14 MG PATCH TD SCH (14:48)
[2019-05-16] MEDS: Atorvastatin Calcium 40 MG TAB PO SCH (21:22)
[2019-05-16] MEDS: Zolpidem Tartrate 5 MG TAB PO PRN (21:25)
--- NOTE | 2019-05-17 00:02 | CON ---
DATE OF CONSULTATION: 05/16/2019 HISTORY OF PRESENT ILLNESS: I am seeing Mr. 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 His problems are: 1. Chronic systolic congestive heart failure with ischemic cardiomyopathy. a. Reduced LVEF of 30% to 35% in the past, now on PRAVEEN on 05/05/2019 at 30%, mitral annular ring with moderate MR, moderate TR. 2. Chronic atrial fibrillation, RV pacing. 3. History of pacemaker implantation in 2013 with a Biotronik dual-chamber device. 4. History of coronary artery disease, status post CABG x3 vessels in [place] in November 2015. 5. Morbid obesity, with weight at 450 pounds range. 6. Hypertension, hypercholesteremia, and diabetes. ALLERGIES: NONE NOTED. MEDICATIONS: At home included, 1. Metolazone. 2. Gabapentin. 3. Carvedilol. 4. Lipitor. 5. Amiodarone 200 mg a day. 6. Aspirin. 7. Enalapril. 8. Potassium. 9. Furosemide. SUBJECTIVE: Mr. Prather is here with lower extremity cellulitis symptoms. He also has acute on chronic combined systolic and diastolic heart failure. He is being diuresed since admission and also receiving antibiotics. So far, blood cultures are negative. He underwent a PRAVEEN to assess his LV function as above and has had an EF of 30%. He continues to be chronically dyspneic. He denies fever, chills or cough. No stroke-like symptoms. No neurological deficits. No PND or orthopnea. Respiratory system otherwise unremarkable. PAST MEDICAL HISTORY: As above. It also includes posttraumatic stress disorder , depression, and persistent atrial fibrillation. PAST SURGICAL HISTORY: Significant for CABG, pacemaker implant in 2013, hernia repair, appendectomy, and tonsillectomy. SOCIAL HISTORY: The patient smokes 10 cigarettes a day and smokes marijuana. He is not . FAMILY HISTORY: Not contributory, but significant for valvular heart disease and surgery in the father. OBJECTIVE DATA: VITAL SIGNS: Blood pressure is 128/86, heart rate 79, respirations 18, and temperature 98.6 degrees Fahrenheit. GENERAL: This is a morbidly obese man, in no apparent distress. NECK: Supple. Jugular veins are difficult to visualize. CHEST: Coarse. No crackles. Precordial pacemaker insertion site is healed. ABDOMEN: Obese. Bowel sounds are distant. LOWER EXTREMITIES: With chronic venous stasis with large inflammation at the infection site in the right lower extremity. NEUROLOGIC: The patient is nonfocal. MUSCULOSKELETAL: Without joint pain or deformities. SKIN: Without rash apart from the cellulitis of the lower extremity and chronic venous stasis. LABORATORY DATA: White cell count 4.9, hemoglobin 12.6, and platelet count 164. Sodium 136, potassium 3.9, BUN 22, and creatinine 0.99. UA is negative. Blood cultures negative x5 days. Urine cultures negative. ASSESSMENT AND PLAN: Mr. Prather is a 59-year-old man with morbid obesity, who also has acute on chronic systolic congestive heart failure, left ventricular ejection fraction about 30% based on a PRAVEEN on this admission. He has a dual- chamber pacemaker implanted and it RV paces with a very wide complex 82% of time. He continues to be on p.o. amiodarone, but still in atrial fibrillation at this time. He appears to be dependent as well based on pacemaker interrogation. We discussed the potential benefit from Bi-V pacing on him, improved synchrony could improve his LV function. On the other hand, his morbid obesity may be prohibitory to have him undergo a procedure. He also has recent cellulitis, which is not resolving. At this point, we will continue monitoring and we will consider the bi-V ICD upgrade after medical stabilization. We discussed pros and cons about lead extraction versus additional lead insertion. We discussed these options further with him and also Dr. Alvarez. We will follow with you. Thank you for allowing me to participate in care of this patient. Job ID: [id number] [facility]
[2019-05-17] MEDS: traMADol HCl 50 MG TAB PO PRN (03:09)
[2019-05-17] MEDS: Bumetanide 1 MG TAB PO SCH ×2 (09:33→15:36)
[2019-05-17] MEDS: HYDROcodone/Acetaminophen 5/325 mg Tablet PO PRN ×3 (09:35→21:48)
[2019-05-17] MEDS: Amiodarone 200 MG TAB PO SCH (11:53)
[2019-05-17] MEDS: Aspirin 81 mg Enteric Coated Tablet PO SCH (11:53)
[2019-05-17] MEDS: Ezetimibe 10 MG TAB PO SCH (11:53)
[2019-05-17] MEDS: Lisinopril 5 MG TAB PO SCH (11:53)
[2019-05-17] MEDS: Carvedilol 3.125 MG TAB PO SCH ×2 (11:53→20:40)
[2019-05-17] MEDS: Spironolactone 25 MG TAB PO SCH ×2 (11:53→20:47)
[2019-05-17] MEDS: Famotidine 20 MG TAB PO SCH ×2 (11:53→20:40)
--- NOTE | 2019-05-17 12:51 | PDOC.HOSPP ---
- Subjective Subjective: Seen and examined. LE wounds not completely healed. Will need resolution of LE wounds prior to AICD placement per Cardiology/ EP. Patient complains of LE edema being worse. Patient complains of back pain not controlled. Patient complains that he wants nursing staff to wheel him downstairs to smoke. - Objective Vital Signs & Weight: Vital Signs (12 hours) Temp Pulse Resp BP BP Pulse Ox 05/17/19 11:41 97.4 F L 89 18 104/67 96 05/17/19 07:13 98.3 F 79 17 121/79 94 L 05/17/19 03:13 92 20 135/66 95 Weight Admit Weight 444 lb 9.6 oz Weight 429 lb 1.6 oz I&O: 05/16/19 05/17/19 05/18/19 06:59 06:59 06:59 Intake Total 1110 1690 Output Total 1850 1750 Balance -740 -60 Result Diagrams: 05/13/19 04:48 05/16/19 04:56 ROS - Medication Medications: Active Medications Generic Name Dose Route Start Last Admin Trade Name Freq PRN Reason Stop Dose Admin Hydrocodone Bitart/Acetaminophen 1 tab 05/17/19 08:14 05/17/19 09:35 [place] 5/325 PO 1 tab Q4H PRN Administration Moderate to Severe Pain (6-10) Amiodarone HCl 200 mg 05/13/19 09:00 05/17/19 11:53 Cordarone PO 200 mg DAILY MIYA Administration Aspirin 81 mg 05/13/19 09:00 05/17/19 11:53 Ecotrin PO 81 mg DAILY MIYA Administration Atorvastatin Calcium 80 mg 05/12/19 21:00 05/16/19 21:22 Lipitor PO 80 mg HS MIYA Administration Bumetanide 1 mg 05/11/19 16:30 05/17/19 09:33 Bumex PO Not Given BID-AC MIYA Carvedilol 3.125 mg 05/12/19 21:00 05/17/19 11:53 Coreg PO 3.125 mg BID MIYA Administration Ezetimibe 10 mg 05/15/19 09:00 05/17/19 11:53 Zetia PO 10 mg DAILY MIYA Administration Famotidine 20 mg 05/09/19 21:00 05/17/19 11:53 Pepcid PO 20 mg BID MIYA Administration Lisinopril 5 mg 05/14/19 09:00 05/17/19 11:53 Zestril PO 5 mg DAILY MIYA Administration Nicotine 14 mg 05/09/19 17:00 05/16/19 14:48 Nicoderm Patch TD Not Given 1700 MIYA Senna/Docusate Sodium 2 tab 05/09/19 15:37 05/11/19 09:08 Senokot S PO 2 tab BID PRN Administration Constipation Sodium Chloride 10 ml 05/09/19 21:00 05/17/19 11:53 Flush - Normal Saline IVF 10 ml Q12HR MIYA Administration Sodium Chloride 10 ml 05/09/19 13:24 05/16/19 05:28 Flush - Normal Saline IVF 10 ml PRN PRN Administration Saline Flush Spironolactone 50 mg 05/13/19 21:00 05/17/19 11:53 Aldactone PO 50 mg BID MIYA Administration Zolpidem Tartrate 5 mg 05/09/19 15:48 05/16/19 21:25 Ambien PO 5 mg HSPRN PRN Administration Insomnia - Exam NAD, awake alert Eye: PERRL, anicteric sclera Eye - other findings: EOMI ENT: moist mucosa Neck: supple, symmetric Heart: no murmur, no gallops, no rubs Heart - other findings: S1 and S2 present. Distant heart sounds secondary to BMI Respiratory: CTAB, no wheezes, no rales, no ronchi Gastrointestinal: soft, non-tender, non-distended, no guarding, no rigidity Extremities: 2+ LE edema Extremeties - other findings: Chronic LE wounds. Chronic venous stasis dermatitis Neurological: CN's grossly intact, no weakness, no focal deficits, no new deficit Musculoskeletal: generalized weakness Psychiatric: normal affect, A&O x 3 Hosp A/P (1) Cellulitis of right leg Code(s): L03.115 - CELLULITIS OF RIGHT LOWER LIMB Status: Acute (2) Chronic venous stasis dermatitis of both lower extremities Code(s): I87.2 - VENOUS INSUFFICIENCY (CHRONIC) (PERIPHERAL) Status: Chronic (3) Hypokalemia Code(s): E87.6 - HYPOKALEMIA Status: Resolved (4) Intertriginous candidiasis Code(s): B37.2 - CANDIDIASIS OF SKIN AND NAIL Status: Resolved (5) Ischemic cardiomyopathy Code(s): I25.5 - ISCHEMIC CARDIOMYOPATHY Status: Chronic (6) Chest pain on exertion Code(s): R07.9 - CHEST PAIN, UNSPECIFIED Status: Acute (7) Acute on chronic systolic (congestive) heart failure Code(s): I50.23 - ACUTE ON CHRONIC SYSTOLIC (CONGESTIVE) HEART FAILURE Status : Acute (8) CHF, acute on chronic Code(s): I50.9 - HEART FAILURE, UNSPECIFIED Status: Acute Qualifiers: Qualified Code(s): I50.23 - Acute on chronic systolic (congestive) heart failure (9) Cellulitis and abscess of leg Code(s): L02.419 - CUTANEOUS ABSCESS OF LIMB, UNSPECIFIED; L03.119 - CELLULITIS OF UNSPECIFIED PART OF LIMB Status: Acute (10) Chronic systolic heart failure Code(s): I50.22 - CHRONIC SYSTOLIC (CONGESTIVE) HEART FAILURE Status: Acute (11) Morbid obesity Code(s): E66.01 - MORBID (SEVERE) OBESITY DUE TO EXCESS CALORIES Status: Chronic (12) Atrial fibrillation Code(s): I48.91 - UNSPECIFIED ATRIAL FIBRILLATION Status: Chronic (13) CAD (coronary artery disease) Code(s): I25.10 - ATHSCL HEART DISEASE OF [place] CORONARY ARTERY W/O ANG PCTRS Status: Chronic Qualifiers: Coronary Disease-Associated Artery/Lesion type: bypass graft [place] vs. transplanted heart: [place] heart Associated angina: without angina Qualified Code(s): I25.810 - Atherosclerosis of coronary artery bypass graft(s) without angina pectoris (14) DM type 2 (diabetes mellitus, type 2) Status: Chronic Qualifiers: Diabetes mellitus complication status: with circulatory complication (15) Dyslipidemia Code(s): E78.5 - HYPERLIPIDEMIA, UNSPECIFIED Status: Chronic (16) HTN (hypertension) Code(s): I10 - ESSENTIAL (PRIMARY) HYPERTENSION Status: Chronic Qualifiers: Hypertension type: essential hypertension Qualified Code(s): I10 - Essential (primary) hypertension - Plan Plan: Cardiology consultation, recommendations appreciated Further plan of care per cardiology Cardiology wanting resolution of LE wounds so that AICD can be done, will need ID clearance Infectious disease consult, recommendations appreciated Cellulitis improving - On IV Clindamycin since 05/09 Cultures - no growth to date S/p PRAVEEN, see official report for details CHF regimen with good improvement of symptoms Will likely need sub acute placement on D/c BMI 53, based on recorded weight and height GI and DVT PPX
[2019-05-17] MEDS: Clindamycin/D5W 600 MG in Premix Bag 1 BAG IVPB SCH ×2 (14:21→20:40)
--- NOTE | 2019-05-17 14:25 | RAD ---
FRONTAL AND LATERAL IMAGING OF CHEST: Date: 05/17/19 COMPARISON: 05/09/19. HISTORY: Shortness of breath. FINDINGS: There is marked enlargement of the cardiac silhouette, a stable finding. Midline sternotomy wires are present. Stable transvenous pacing device. No pneumothorax. Pulmonary vascular congestion again note d. No lobar consolidation or large volume pleural effusion. IMPRESSION: Stable appearance of the chest as detailed above. POS: T[facility]
[2019-05-17] MEDS: Nicotine 14 MG PATCH TD SCH (15:37)
--- NOTE | 2019-05-17 17:59 | PRG ---
DATE OF SERVICE: SUBJECTIVE: Mr. Prather is doing fair today. Breathing is improving. His lower extremity cellulitis seems to be also getting better, but the swelling may have been worse today. The patient has chronic backaches. No angina. Does not pass out. OBJECTIVE: VITAL SIGNS: Blood pressure is 104/67, heart rate 89, respiratory rate is 18, temperature 97.4 degrees Fahrenheit. GENERAL: Reveals a morbidly obese man, in no apparent distress. NECK: Supple. Jugular veins are difficult to visualize due to morbid obesity. CHEST: Without fine crackles. HEART: Sounds are distant. S1, S2 somewhat variable. No murmur or gallop is appreciated. Left epicardial pacemaker insertion site is healed well. ABDOMEN: Morbidly obese. EXTREMITIES: Lower extremities with 3+ bilateral edema. Right chronic venous stasis wound is in bandages. LABORATORY DATA: None new. DATABASE: Chest x-ray today reveals stable appearing chest. No lobar consolidation, pulmonary congestion though is noted. Dual-chamber pacemaker is in place. ASSESSMENT AND PLAN: Mr. Prather is a 59-year-old man with extreme obesity, who also has coronary artery disease and now documented severe reduced LVEF. He has history of atrial fibrillation. In fact, ongoing atrial flutter despite chronic amiodarone therapy is noted. He also has some degree of intermittent AV block requiring high-grade ventricular pacing. The pace interrogation a couple of days back did demonstrate adequate sensing and pacing parameters, but again with the ongoing pacing with 84% pacing is noted. On library monitor today, again ventricular pacing noted occasionally up to 128 beats per minute is seen. This could represent some issues with mode switch and inappropriate tracking of the atrial rhythm. Alternatively conducted beat is very similar in morphology to paced beats, cannot be completely ruled out. It appears that this is generally getting more stable. There is still a consideration to consider a Bi-V upgrade for him, although the recent lower extremity cellulitis may make that decision difficult. ID was consulted. Awaiting results on that. Heart failure, now reasonably compensated with adequate oxygenation. PLAN: Awaiting ID eval and will consider Bi-V ICD upgrade on Wednesday. Job ID: [id number]
[2019-05-17] MEDS: Atorvastatin Calcium 40 MG TAB PO SCH (20:40)
[2019-05-18] MEDS: Clindamycin/D5W 600 MG in Premix Bag 1 BAG IVPB SCH ×2 (06:36→13:35)
[2019-05-18] MEDS: Bumetanide 1 MG TAB PO SCH ×2 (08:45→15:43)
[2019-05-18] MEDS: Carvedilol 3.125 MG TAB PO SCH ×2 (08:46→20:39)
[2019-05-18] MEDS: Ezetimibe 10 MG TAB PO SCH (08:46)
[2019-05-18] MEDS: Spironolactone 25 MG TAB PO SCH ×2 (08:46→20:40)
[2019-05-18] MEDS: Aspirin 81 mg Enteric Coated Tablet PO SCH (08:46)
[2019-05-18] MEDS: Amiodarone 200 MG TAB PO SCH (08:46)
[2019-05-18] MEDS: Famotidine 20 MG TAB PO SCH ×2 (08:46→20:39)
[2019-05-18] MEDS: Lisinopril 5 MG TAB PO SCH (08:46)
[2019-05-18] MEDS ORDERED: Promethazine 25 MG TAB PO PRN (13:27)
[2019-05-18] MEDS: Nicotine 14 MG PATCH TD SCH (16:53)
[2019-05-18] MEDS ORDERED: Nicotine 14 MG PATCH TD PRN (17:00)
--- NOTE | 2019-05-18 18:45 | PRG ---
DATE OF SERVICE: 05/18/2019 SUBJECTIVE: Mr. Prather seems to be doing well. He is breathing easier. He has no dizziness or loss of consciousness. His leg wound also appears to be improving. OBJECTIVE DATA: VITAL SIGNS: Blood pressure is 102/71, heart rate 65, respiratory rate 20, temperature 97.7 Fahrenheit. GENERAL: Alert and oriented, morbidly obese man, in no apparent distress. NECK: Supple. Jugular veins are not visible. CHEST: Coarse. No crackles. HEART: Heart sounds are distant. No murmur or gallop. Pacemaker site is well healed. ABDOMEN: Benign and obese. EXTREMITIES: Lower extremity with 2+ bilateral edema. Chronic venous stasis signs are seen. Right lower extremity wound is healing adequately. DIAGNOSTIC DATA: Telemetry strips reveals a ventricular paced rhythm, atrial arrhythmia occasionally conducted. LABORATORY DATA: White cell count is 4.9, hemoglobin 12.6, and platelet count is 164. Sodium 136, potassium 3.9, BUN is 22, creatinine 0.99 seen on . Cultures so far negative in blood on and . ASSESSMENT AND PLAN: Mr. Prather is a 59-year-old man with history of atrial arrhythmias, currently suppressed with amiodarone. He also has a dual-chamber pacemaker in place. He has marked high-grade 82% ventricular pacing with very wide QRS. Now, his left ventricular ejection fraction is measured at 30%. He has frequent premature ventricular contractions and continues to remain in atrial tachyarrhythmia. As discussed, there might be a benefit from BiV pacing gentlemanand prophylactic ICD therapy as well. Risks of the procedure were discussed emphasizing the risk of anesthesia as well, hence he has morbid obesity. Also, there is a chance of infection, although now without signs of systemic infection. I would be reasonable to proceed with the procedure, and still he is more higher than usual risk for infection in the future. We will proceed with the implant as planned. Job ID: [id number] [facility]
[2019-05-18] MEDS: Cephalexin 250 MG CAP PO SCH (20:38)
[2019-05-18] MEDS: Atorvastatin Calcium 40 MG TAB PO SCH (20:38)
--- NOTE | 2019-05-18 21:04 | PDOC.HOSPP ---
- Subjective Encounter Date: 05/18/19 Encounter Time: 16:30 Subjective: Patient seen and examined for CHF/Cellulitis. No CP. SOB improving. No new complaints. No overnight events - Objective Vital Signs & Weight: Vital Signs (12 hours) Temp Pulse Resp BP Pulse Ox 05/18/19 15:34 97.7 F 65 20 102/71 95 05/18/19 12:26 97.6 F 74 18 115/72 93 L Weight Admit Weight 444 lb 9.6 oz Weight 429 lb 1.6 oz I&O: 05/17/19 05/18/19 05/19/19 06:59 06:59 06:59 Intake Total 1690 1620 820 Output Total 1750 1000 780 Balance -60 620 40 Result Diagrams: 05/13/19 04:48 05/16/19 04:56 EKG Reviewed by me: Yes (Tele Aflutter) ROS - Review of Systems Cardiovascular: reports: orthopnea, paroxysmal noc. dyspnea, edema. denies: chest pain, palpitations, light headedness, other Gastrointestinal: denies: nausea, vomitting, abdominal pain, diarrhea, constipation, melena, hematochezia, other - Medication Medications: Active Medications Generic Name Dose Route Start Last Admin Trade Name Freq PRN Reason Stop Dose Admin Hydrocodone Bitart/Acetaminophen 1 tab 05/17/19 08:14 05/17/19 21:48 [place] 5/325 PO 1 tab Q4H PRN Administration Moderate to Severe Pain (6-10) Amiodarone HCl 200 mg 05/13/19 09:00 05/18/19 08:46 Cordarone PO 200 mg DAILY MIYA Administration Aspirin 81 mg 05/13/19 09:00 05/18/19 08:46 Ecotrin PO 81 mg DAILY MIYA Administration Atorvastatin Calcium 80 mg 05/12/19 21:00 05/18/19 20:38 Lipitor PO 80 mg HS MIYA Administration Bumetanide 1 mg 05/11/19 16:30 05/18/19 15:43 Bumex PO 1 mg BID-AC MIYA Administration Carvedilol 3.125 mg 05/12/19 21:00 05/18/19 20:39 Coreg PO 3.125 mg BID MIYA Administration Cephalexin 500 mg 05/18/19 21:00 05/18/19 20:38 Keflex PO 500 mg TID MIYA Administration Ezetimibe 10 mg 05/15/19 09:00 05/18/19 08:46 Zetia PO 10 mg DAILY MIYA Administration Famotidine 20 mg 05/09/19 21:00 05/18/19 20:39 Pepcid PO 20 mg BID MIYA Administration Lisinopril 5 mg 05/14/19 09:00 05/18/19 08:46 Zestril PO 5 mg DAILY MIYA Administration Promethazine HCl 25 mg 05/18/19 13:27 05/18/19 13:35 Phenergan PO 25 mg Q6H PRN Administration Nausea Senna/Docusate Sodium 2 tab 05/09/19 15:37 05/11/19 09:08 Senokot S PO 2 tab BID PRN Administration Constipation Sodium Chloride 10 ml 05/09/19 21:00 05/18/19 20:39 Flush - Normal Saline IVF 10 ml Q12HR MIYA Administration Sodium Chloride 10 ml 05/09/19 13:24 05/16/19 05:28 Flush - Normal Saline IVF 10 ml PRN PRN Administration Saline Flush Spironolactone 50 mg 05/13/19 21:00 05/18/19 20:40 Aldactone PO Not Given BID MIYA Zolpidem Tartrate 5 mg 05/09/19 15:48 05/16/19 21:25 Ambien PO 5 mg HSPRN PRN Administration Insomnia - Exam NAD Neck: supple, no JVD Heart: no rubs, irregular Respiratory: CTAB, no rales, rhonchi Respiratory - other findings: dec AE at bases Gastrointestinal: soft, non-tender, normal bowel sounds Extremities: 2+ LE edema (with dressing) Neurological: no new deficit Hosp A/P (1) Acute on chronic combined systolic (congestive) and diastolic (congestive) heart failure Code(s): I50.43 - ACUTE ON CHRONIC COMBINED SYSTOLIC AND DIASTOLIC HRT FAIL Status: Acute (2) Cellulitis, leg Code(s): L03.119 - CELLULITIS OF UNSPECIFIED PART OF LIMB Status: Acute Qualifiers: Laterality: right Qualified Code(s): L03.115 - Cellulitis of right lower limb (3) CAD (coronary artery disease) Code(s): I25.10 - ATHSCL HEART DISEASE OF [place] CORONARY ARTERY W/O ANG PCTRS Status: Chronic Qualifiers: Coronary Disease-Associated Artery/Lesion type: bypass graft [place] vs. transplanted heart: [place] heart Associated angina: without angina Qualified Code(s): I25.810 - Atherosclerosis of coronary artery bypass graft(s) without angina pectoris (4) DM type 2 (diabetes mellitus, type 2) Status: Chronic Qualifiers: Diabetes mellitus complication status: with circulatory complication (5) HTN (hypertension) Code(s): I10 - ESSENTIAL (PRIMARY) HYPERTENSION Status: Chronic Qualifiers: Hypertension type: essential hypertension Qualified Code(s): I10 - Essential (primary) hypertension (6) Morbid obesity with BMI of 50.0-59.9, adult Code(s): E66.01 - MORBID (SEVERE) OBESITY DUE TO EXCESS CALORIES; Z68.43 - BODY MASS INDEX (BMI) 50-59.9, ADULT Status: Acute (7) Other issues per previous notes - Plan Case d/e Dr Shaver/Nichole Change IV Clindamycin to PO Keflex Patient will need compression stockings - Dr Shaver recommended arterial doppler prior to starting stockings Will need Pen VK 250 mg BID once he completes Keflex Cont Bumex, Amiodarone and other meds as below NPO past MN for BiV AICD upgrade Cont wound care AM labs
--- NOTE | 2019-05-19 00:27 | CON ---
DATE OF CONSULTATION: 05/18/2019 REASON FOR CONSULTATION: Cellulitis and question regarding performance of a cardiac procedure. HISTORY OF PRESENT ILLNESS: A 59-year-old gentleman, history of type 2 diabetes , coronary artery disease, CHF and a pacemaker, morbid obesity and chronic stasis dermatitis with a chronic right leg ulcer and cellulitis. The patient was admitted on May 09 because of worsening leg swelling and right leg pain and he has received clindamycin and had a PRAVEEN to evaluate the possibility of performing resynchronization intervention with a new different type of device. He has improved significantly, but still with the ulcer and some tenderness in the right leg. No headaches. No sore throat, odynophagia, or dysphagia. A little bit of cough and mild dyspnea. No chest pain. No abdominal pain. Voiding without difficulty and no diarrhea. PAST MEDICAL HISTORY: Includes of morbid obesity, coronary artery disease, bypass graft surgery, type 2 diabetes, dyslipidemia, hypertension, depression, venous insufficiency, stasis dermatitis, atrial fibrillation. PAST SURGICAL HISTORY: Bypass graft surgery, hernia repair, thoracentesis, pacemaker, appendectomy, tonsillectomy. FAMILY HISTORY: Diabetes. SOCIAL HISTORY: History of homelessness in the past, currently he has an apartment and smokes daily about 6 cigarettes per day. ALLERGIES: NO KNOWN DRUG ALLERGIES. CURRENT MEDICATIONS: 1. Amiodarone. 2. Aspirin. 3. Lipitor. 4. Dulcolax. 5. Bumex. 6. Clindamycin. 7. Zetia. 8. Pepcid. 9. Zestril. 10. Phenergan. 11. Senokot. 12. Aldactone. PHYSICAL EXAMINATION: VITAL SIGNS: T-max 98.4, blood pressure 102/71, pulse 65, respirations 20, O2 saturation 95. SKIN: With the round-shaped ulcer with a diameter of about 7 cm, fresh granulating base except for about 10% of the wound base which has yellow slough. Surrounding skin with stasis dermatitis for the most part. Peripheral IV access. Voiding by himself in the urinal. No lymphadenopathy. HEENT: Ocular movements conjugate. Pupils are equal. Sclerae are white. Conjunctivae normal. Oral cavity with numerous missing teeth, remainder ones with a lot of decay and gum disease. NECK: Supple with positive jugular vein distention. LUNGS: Symmetric air entry. Faint basilar crackles. Irregular rate, S1, S2. Diminished heart sounds, soft aortic murmur at the apex. ABDOMEN: Very protuberant with a quite impressive panniculus. No organomegaly detected. No bladder distention. No ascites. GENITAL: Normal. Some intertriginous macerations. EXTREMITIES: Could not feel popliteal or dorsalis pedis pulses. There is quite prominent stasis dermatitis. He is able to move extremities with limitations imposed by his leg swelling and overall deconditioning and obesity. NEURO: His cognitive function is perfectly intact. LABORATORY DATA: White cell count 4.4 and 4.9, hemoglobin 13.3, platelets 161, 63% neutrophils, 18% lymphocytes. Sodium 137, creatinine 1.10 and now creatinine 0.9. Bilirubin was 1.5, AST 21, ALT 8, alkaline phosphatase 114, albumin 3.5. Urinalysis was normal except for the increased urobilinogen. Microbiology with negative blood cultures and urine culture as well. Chest x-ray with stable appearance of chest. ASSESSMENT: Obesity, venous insufficiency, chronic ulcer, possible peripheral vascular disease, congestive heart failure with eligibility for resynchronization therapy to improve functional state cellulitis. DISCUSSION: Cellulitis has pretty much resolved now and I would advise transition to either oral Keflex 500 twice daily or penicillin VK 500 twice daily for protracted period of time and continue wound care. I would advise duplex ultrasound, arterial, and if it felt to be adequate, then I would recommend compression stockings or wrap or Unna boot or other types of compressive dressings for the right lower extremity to assist with healing of the ulceration. In terms of performance of the resynchronization therapy, I believe that the risk-benefit ratio is reasonable and I would go ahead and proceed with the usual precautions in terms of perioperative prophylaxis. Job ID: [id number] [facility]
[2019-05-19] MEDS: Carvedilol 3.125 MG TAB PO SCH ×2 (05:22→21:12)
[2019-05-19 08:00] LABS: #Eosinphils 0.1 thou/uL (0.0-0.7); #Lymphocytes 0.9 thou/uL (1.20-3.40); #Monocytes 0.5 thou/uL (0.11-0.59); #Neutrophils 2.8 thou/uL (1.40-6.50); %Basophils 0.2 % (0.0-1.0); %Eosinophils 1.9 % (0.0-10.0); %Lymphocytes 20.7 % (21.0-51.0); %Monocytes 12.2 % (0.0-10.0); %Neutrophils 64.9 % (42.0-75.0); Hemoglobin 12.7 g/dL (14.0-18.0); Mean Corpuscular Hemoglobin 28.8 pg (27.0-31.0); Mean Platelet Volume 8.2 fL (7.4-10.4); Platelet Count 145 thou/uL (130-400); RBC Distribution Width 16.6 % (11.5-14.5); Red Blood Cell (RBC) Count 4.43 mill/uL (4.70-6.10); White Blood Cell (WBC) Count 4.3 thou/uL (4.8-10.8)
[2019-05-19 08:20] LABS: ALT (SGPT) 10 U/L (8-55); AST (SGOT) 16 U/L (5-34); Albumin 3.3 g/dL (3.4-4.8); Alkaline Phosphatase 104 U/L (40-150); Anion Gap 13 mmol/L (10-20); BUN (Urea Nitrogen) 27 mg/dL (8.4-25.7); Bilirubin, Total 1.1 mg/dL (0.2-1.2); Calc. Creatinine Clearance 177 mL/min (70-130); Carbon Dioxide 27 mmol/L (23-31); Chloride 97 mmol/L (98-107); Estimated GFR-MDRD 61; Glucose 87 mg/dL (80-115); Protein, Total 7.3 g/dL (5.8-8.1); Sodium 133 mmol/L (136-145)
[2019-05-19] MEDS: Bumetanide 1 MG TAB PO SCH ×2 (08:51→16:52)
--- NOTE | 2019-05-19 10:31 | ULT ---
BILATERAL LOWER EXTREMITY DOPPLER ARTERIAL ULTRASOUND: CLINICAL HISTORY: Soft tissue edema. Ulcerations of lower extremities. FINDINGS: Throughout the bilateral lower extremities, there is inconsistency in the pattern of the arterial wav eforms, which does indicate a dysrhythmia; however, there is limitation due to prominence of overlyin g soft tissues, which does interrupt a component of the elicitation of waveforms. The predominant wa veform is likely biphasic with incomplete assessment; however, due to dysrhythmia and subsequent inte rruption of the completion of the waveform. A monophasic waveform is seen at the left dorsalis pedis artery. IMPRESSION: Sonographic findings, with the utilization of Doppler assessment, indicate a persistent dysrhythmia, which does therefore limit the evaluation of the waveforms of the lower extremities. Recommend clini tristan correlation in this regard. Overall, predominance of waveforms is favored to reflect a biphasic waveform, with the notable exception of a monophasic waveform at the level of the left dorsalis pedis artery. POS: C
[2019-05-19] MEDS ORDERED: Iopamidol 370 76% 50 ML VIAL FS ONE (10:54)
[2019-05-19] MEDS ORDERED: Fentanyl 100 MCG/2 ML VIAL ONE ×3 (11:13→15:47)
[2019-05-19] MEDS ORDERED: Midazolam HCl 2 mg/2 ml Vial ONE (11:14)
[2019-05-19] MEDS ORDERED: Lidocaine 1% (PF) 30 ML VIAL ONE (12:10)
[2019-05-19] MEDS ORDERED: PROPOFOL 20 ML ONE ×2 (13:07→13:59)
[2019-05-19] MEDS ORDERED: Ondansetron HCl/PF 4 MG/2 ML Vial IVP PRN (14:56)
--- NOTE | 2019-05-19 15:52 | RAD ---
Exam: Chest one view HISTORY:Status post BIV placement Comparison: 05/17/2019 FINDINGS: Note, the patient is rotated to the left. Cardiac silhouette:Cardiomegaly. Postoperative changes: There are sternotomy wires. Stable presumed prosthetic valve projecting over t he cardiac silhouette. Presumed interval exchange of a transvenous pacing device. There are leads that terminate over the region of the right atrium, and right ventricle. Possible leads terminating o james the coronary sinus. There are skin castro projecting adjacent to the pacer generator.. Aorta: Atherosclerotic. Pulmonary vessels: Prominent Costophrenic angles: Clear LUNGS: No masses or consolidation. Patchy interstitial opacities which may be chronic Pneumothorax: None Osseous abnormalities: None IMPRESSION: Interval exchange of a left sided transvenous pacing device/defibrillator. No pneumothorax. Additiona l findings as above. Transcribed Date/Time: 05/19/2019 3:55 PM
[2019-05-19] MEDS ORDERED: PROPOFOL 200 MG/20 ML VIAL ONE (16:00)
[2019-05-19] MEDS: Spironolactone 25 MG TAB PO SCH ×2 (16:52→21:12)
[2019-05-19] MEDS: Famotidine 20 MG TAB PO SCH ×2 (16:53→21:11)
[2019-05-19] MEDS: Cephalexin 250 MG CAP PO SCH ×3 (16:53→21:11)
[2019-05-19] MEDS: Saccharomyces boulardii 250 MG CAP PO SCH (16:54)
[2019-05-19] MEDS: Ezetimibe 10 MG TAB PO SCH (16:54)
[2019-05-19] MEDS: Lisinopril 5 MG TAB PO SCH (16:54)
[2019-05-19] MEDS: Aspirin 81 mg Enteric Coated Tablet PO SCH (16:55)
[2019-05-19] MEDS: Amiodarone 200 MG TAB PO SCH (16:55)
[2019-05-19] MEDS ORDERED: Acetaminophen/Codeine 30-300mg Tablet PO PRN (18:00)
[2019-05-19] MEDS: HYDROcodone/Acetaminophen 5/325 mg Tablet PO PRN ×2 (18:27→23:23)
--- NOTE | 2019-05-19 19:52 | PDOC.HOSPP ---
- Subjective Encounter Date: 05/19/19 Encounter Time: 17:30 Subjective: Patient seen and examined for Cellulitis and CHF. s/p BiVICD. No CP/SOB at rest. Pain controlled. No new complaints. No overnight events - Objective Vital Signs & Weight: Vital Signs (12 hours) Temp Pulse Resp BP BP Pulse Ox 05/19/19 16:54 62 05/19/19 16:51 99.1 F 62 20 120/74 95 05/19/19 08:00 97.6 F 77 18 157/82 H 94 L Weight Admit Weight 444 lb 9.6 oz Weight 430 lb I&O: 05/18/19 05/19/19 05/20/19 06:59 06:59 06:59 Intake Total 1620 1120 1910 Output Total 1000 1005 600 Balance 266 608 8382 Result Diagrams: 05/20/19 05:48 05/19/19 07:52 EKG Reviewed by me: Yes (Tele paced) ROS - Review of Systems Cardiovascular: denies: chest pain, palpitations, orthopnea, paroxysmal noc. dyspnea, edema, light headedness, other Gastrointestinal: denies: nausea, vomitting, abdominal pain, diarrhea, constipation, melena, hematochezia, other - Medication Medications: Active Medications Generic Name Dose Route Start Last Admin Trade Name Freq PRN Reason Stop Dose Admin Hydrocodone Bitart/Acetaminophen 1 tab 05/17/19 08:14 05/19/19 18:27 [place] 5/325 PO 1 tab Q4H PRN Administration Moderate to Severe Pain (6-10) Amiodarone HCl 200 mg 05/13/19 09:00 05/19/19 16:55 Cordarone PO 200 mg DAILY MIYA Administration Aspirin 81 mg 05/13/19 09:00 05/19/19 16:55 Ecotrin PO 81 mg DAILY MIYA Administration Atorvastatin Calcium 80 mg 05/12/19 21:00 05/18/19 20:38 Lipitor PO 80 mg HS MIYA Administration Bumetanide 1 mg 05/11/19 16:30 05/19/19 16:52 Bumex PO Not Given BID-AC MIYA Carvedilol 3.125 mg 05/12/19 21:00 05/19/19 05:22 Coreg PO 3.125 mg BID MIYA Administration Cephalexin 500 mg 05/18/19 21:00 05/19/19 16:54 Keflex PO 500 mg TID MIYA Administration Ezetimibe 10 mg 05/15/19 09:00 05/19/19 16:54 Zetia PO 10 mg DAILY MIYA Administration Famotidine 20 mg 05/09/19 21:00 05/19/19 16:53 Pepcid PO Not Given BID MIYA Lisinopril 5 mg 05/14/19 09:00 05/19/19 16:54 Zestril PO 5 mg DAILY IMYA Administration Promethazine HCl 25 mg 05/18/19 13:27 05/18/19 13:35 Phenergan PO 25 mg Q6H PRN Administration Nausea Saccharomyces Boulardii 250 mg 05/19/19 09:00 05/19/19 16:54 Florastor PO Not Given DAILY [facility] Senna/Docusate Sodium 2 tab 05/09/19 15:37 05/11/19 09:08 Senokot S PO 2 tab BID PRN Administration Constipation Sodium Chloride 10 ml 05/09/19 21:00 05/19/19 16:53 Flush - Normal Saline IVF Not Given Q12HR MIYA Sodium Chloride 10 ml 05/09/19 13:24 05/16/19 05:28 Flush - Normal Saline IVF 10 ml PRN PRN Administration Saline Flush Spironolactone 50 mg 05/13/19 21:00 05/19/19 16:52 Aldactone PO Not Given BID [facility] Zolpidem Tartrate 5 mg 05/09/19 15:48 05/16/19 21:25 Ambien PO 5 mg HSPRN PRN Administration Insomnia - Exam NAD Heart: RRR, no rubs Respiratory: CTAB, no rales Gastrointestinal: soft, non-tender Extremities: 2+ LE edema (RLE dressing +) Hosp A/P (1) Acute on chronic combined systolic (congestive) and diastolic (congestive) heart failure Code(s): I50.43 - ACUTE ON CHRONIC COMBINED SYSTOLIC AND DIASTOLIC HRT FAIL Status: Acute (2) Cellulitis, leg Code(s): L03.119 - CELLULITIS OF UNSPECIFIED PART OF LIMB Status: Acute Qualifiers: Laterality: right Qualified Code(s): L03.115 - Cellulitis of right lower limb (3) CAD (coronary artery disease) Code(s): I25.10 - ATHSCL HEART DISEASE OF [place] CORONARY ARTERY W/O ANG PCTRS Status: Chronic (4) DM type 2 (diabetes mellitus, type 2) Status: Chronic Qualifiers: Chronic kidney disease stage: stage 2 (mild) (5) HTN (hypertension) Code(s): I10 - ESSENTIAL (PRIMARY) HYPERTENSION Status: Chronic (6) Morbid obesity with BMI of 50.0-59.9, adult Code(s): E66.01 - MORBID (SEVERE) OBESITY DUE TO EXCESS CALORIES; Z68.43 - BODY MASS INDEX (BMI) 50-59.9, ADULT Status: Acute (7) Other issues per previous notes - Plan Cont PO Keflex Will need Pen VK 250 mg BID once he completes Keflex Cont Bumex, Amiodarone, Coreg and other meds as below Resume Anticoag after 48 hr AM labs Cont wound care SNF vs Rehab eval PT/OT
[2019-05-19] MEDS: Atorvastatin Calcium 40 MG TAB PO SCH (21:11)
[2019-05-19] MEDS: Zolpidem Tartrate 5 MG TAB PO PRN (23:25)
[2019-05-19] MEDS: CEFAZOLIN 2 GM in Premix Bag 1 BAG IVPB SCH (23:50)
[2019-05-20] MEDS: HYDROcodone/Acetaminophen 5/325 mg Tablet PO PRN ×3 (04:46→22:36)
[2019-05-20 06:56] LABS: #Eosinphils 0.1 thou/uL (0.0-0.7); #Lymphocytes 0.7 thou/uL (1.20-3.40); #Monocytes 0.6 thou/uL (0.11-0.59); #Neutrophils 3.3 thou/uL (1.40-6.50); %Basophils 0.5 % (0.0-1.0); %Eosinophils 1.3 % (0.0-10.0); %Monocytes 12.2 % (0.0-10.0); %Neutrophils 71.9 % (42.0-75.0); Hemoglobin 12.2 g/dL (14.0-18.0); Mean Corpuscular HGB CONC 31.6 g/dL (32.0-36.0); Mean Corpuscular Hemoglobin 28.5 pg (27.0-31.0); Mean Corpuscular Volume 90.1 fL (78.0-98.0); Mean Platelet Volume 8.5 fL (7.4-10.4); Platelet Count 146 thou/uL (130-400); RBC Distribution Width 16.8 % (11.5-14.5); White Blood Cell (WBC) Count 4.6 thou/uL (4.8-10.8)
[2019-05-20 07:13] LABS: Anion Gap 15 mmol/L (10-20); BUN (Urea Nitrogen) 29 mg/dL (8.4-25.7); Calc. Creatinine Clearance 186 mL/min (70-130); Calcium 9.1 mg/dL (7.8-10.44); Carbon Dioxide 25 mmol/L (23-31); Chloride 98 mmol/L (98-107); Estimated GFR-MDRD 65; Glucose 106 mg/dL (80-115); Potassium 4.3 mmol/L (3.5-5.1); Sodium 134 mmol/L (136-145)
[2019-05-20] MEDS: Cephalexin 250 MG CAP PO SCH ×4 (08:57→20:51)
[2019-05-20] MEDS: Carvedilol 3.125 MG TAB PO SCH ×2 (08:58→20:52)
[2019-05-20] MEDS: Lisinopril 5 MG TAB PO SCH (08:58)
[2019-05-20] MEDS: Ezetimibe 10 MG TAB PO SCH (08:58)
[2019-05-20] MEDS: Aspirin 81 mg Enteric Coated Tablet PO SCH (08:58)
[2019-05-20] MEDS: Famotidine 20 MG TAB PO SCH ×2 (08:59→20:52)
[2019-05-20] MEDS: Bumetanide 1 MG TAB PO SCH ×2 (08:59→16:13)
[2019-05-20] MEDS: Saccharomyces boulardii 250 MG CAP PO SCH (09:00)
[2019-05-20] MEDS: Spironolactone 25 MG TAB PO SCH ×2 (09:00→20:52)
[2019-05-20] MEDS: Amiodarone 200 MG TAB PO SCH (09:01)
[2019-05-20] MEDS: CEFAZOLIN 2 GM in Premix Bag 1 BAG IVPB SCH (09:01)
--- NOTE | 2019-05-20 10:28 | PDOC.CTH ---
Cardiology Progress Note - Subjective Resting comfortably. No complaints. - Objective Vital Signs Temp Pulse Resp BP BP Pulse Ox 05/20/19 08:58 60 05/20/19 07:42 98.9 F 60 18 116/64 93 L 05/20/19 04:00 98.7 F 59 L 20 117/67 93 L 05/20/19 00:00 97.6 F Admit Weight 444 lb 9.6 oz Weight 430 lb 9 oz 05/19/19 05/20/19 05/21/19 06:59 06:59 06:59 Intake Total 1120 2250 Output Total 1005 1275 Balance 115 975 - Physical Examination General/Neuro: alert & oriented x3 Neck: no JVD present Lungs: CTA Heart: RRR - Telemetry Telemetry Rhythm: BiV pacing - Labs Result Diagrams: 05/20/19 05:48 05/20/19 05:48 Troponin/CKMB Troponin I Less than 0.010 ng/mL (< 0.028) 05/09/19 14:33 - Assessment/Plan 1. ICMO 2. s/p upgrade to BiV ICD 3. Atrial flutter 4. Obesity 5. RLE cellulitis Doing well. Placement being arranged. Ok to transfer. Pt seen and examined. Agree with above assessment Pt does not appear to be very complinat Is angry because he feels his Fluid intake should be limited to 2800CC instead of 1800CC Continues to smoke Continue current meds Bivent ICD placed Pt would like to be placed in a NH next week
--- NOTE | 2019-05-20 11:43 | EKG ---
Test Reason : Blood Pressure : / mmHG Vent. Rate : 084 BPM Atrial Rate : 074 BPM P-R Int : 192 ms QRS Dur : 094 ms QT Int : 412 ms P-R-T Axes : 072 -82 073 degrees QTc Int : 486 ms Electronic atrial pacemaker Left axis deviation Low voltage QRS Inferior infarct , possibly acute Anteroseptal infarct , possibly acute Lateral injury pattern Abnormal ECG Confirmed by RADHA CHRISTINE ([id number]), science editor EVETTE ESTEVEZ ([id number]) on 05/20/2019 11:42:36 AM Referred By: Confirmed By:RADHA CHRISTINE
[2019-05-20] MEDS ORDERED: Apixaban 5 MG TAB PO SCH (18:00)
[2019-05-20] MEDS: Atorvastatin Calcium 40 MG TAB PO SCH (20:52)
--- NOTE | 2019-05-20 21:17 | PDOC.HOSPP ---
- Subjective Encounter Date: 05/20/19 Encounter Time: 10:30 Subjective: Patient seen and examined for CHF/Cellulitis. Some discomfort over the ICD site. No CP/SOB. No new complaints. No overnight events - Objective Vital Signs & Weight: Vital Signs (12 hours) Temp Pulse Resp BP BP Pulse Ox 05/20/19 19:35 97.7 F 65 18 110/72 93 L 05/20/19 16:00 97.3 F L 58 L 19 98/57 L 94 L 05/20/19 11:48 97.8 F 61 18 93/66 93 L Weight Admit Weight 444 lb 9.6 oz Weight 430 lb 9 oz I&O: 05/19/19 05/20/19 05/21/19 06:59 06:59 06:59 Intake Total 1120 2250 720 Output Total 1005 1275 550 Balance 115 975 170 Result Diagrams: 05/20/19 05:48 05/20/19 05:48 EKG Reviewed by me: Yes (Tele paced) ROS - Review of Systems Respiratory: denies: cough, dry, shortness of breath, hemoptysis, SOB with excertion, pleuritic pain, sputum, wheezing, other Cardiovascular: denies: chest pain, palpitations, orthopnea, paroxysmal noc. dyspnea, edema, light headedness, other - Medication Medications: Active Medications Generic Name Dose Route Start Last Admin Trade Name Freq PRN Reason Stop Dose Admin Hydrocodone Bitart/Acetaminophen 1 tab 05/17/19 08:14 05/20/19 11:58 [place] 5/325 PO 1 tab Q4H PRN Administration Moderate to Severe Pain (6-10) Amiodarone HCl 200 mg 05/13/19 09:00 05/20/19 09:01 Cordarone PO 200 mg DAILY MIYA Administration Aspirin 81 mg 05/13/19 09:00 05/20/19 08:58 Ecotrin PO 81 mg DAILY MIYA Administration Atorvastatin Calcium 80 mg 05/12/19 21:00 05/20/19 20:52 Lipitor PO 80 mg HS MIYA Administration Bumetanide 1 mg 05/11/19 16:30 05/20/19 16:13 Bumex PO 1 mg BID-AC MIYA Administration Carvedilol 3.125 mg 05/12/19 21:00 05/20/19 20:52 Coreg PO 3.125 mg BID MIYA Administration Cephalexin 500 mg 05/19/19 21:00 05/20/19 20:51 Keflex PO 500 mg QID MIYA Administration Ezetimibe 10 mg 05/15/19 09:00 05/20/19 08:58 Zetia PO 10 mg DAILY MIYA Administration Famotidine 20 mg 05/09/19 21:00 05/20/19 20:52 Pepcid PO 20 mg BID MIYA Administration Lisinopril 5 mg 05/14/19 09:00 05/20/19 08:58 Zestril PO 5 mg DAILY MIYA Administration Promethazine HCl 25 mg 05/18/19 13:27 05/18/19 13:35 Phenergan PO 25 mg Q6H PRN Administration Nausea Saccharomyces Boulardii 250 mg 05/19/19 09:00 05/20/19 09:00 Florastor PO 250 mg DAILY MIYA Administration Senna/Docusate Sodium 2 tab 05/09/19 15:37 05/11/19 09:08 Senokot S PO 2 tab BID PRN Administration Constipation Sodium Chloride 10 ml 05/09/19 21:00 05/20/19 20:52 Flush - Normal Saline IVF Not Given Q12HR MIYA Sodium Chloride 10 ml 05/09/19 13:24 05/16/19 05:28 Flush - Normal Saline IVF 10 ml PRN PRN Administration Saline Flush Spironolactone 50 mg 05/13/19 21:00 05/20/19 20:52 Aldactone PO Not Given BID [facility] Zolpidem Tartrate 5 mg 05/09/19 15:48 05/19/19 23:25 Ambien PO 5 mg HSPRN PRN Administration Insomnia - Exam NAD Heart: RRR, no rubs Respiratory: CTAB, no rales Gastrointestinal: soft, non-tender, normal bowel sounds Extremities: 2+ LE edema (dressing RLE +) Hosp A/P (1) Acute on chronic combined systolic (congestive) and diastolic (congestive) heart failure Code(s): I50.43 - ACUTE ON CHRONIC COMBINED SYSTOLIC AND DIASTOLIC HRT FAIL Status: Acute (2) Cellulitis, leg Code(s): L03.119 - CELLULITIS OF UNSPECIFIED PART OF LIMB Status: Acute Qualifiers: Laterality: right Qualified Code(s): L03.115 - Cellulitis of right lower limb (3) CAD (coronary artery disease) Code(s): I25.10 - ATHSCL HEART DISEASE OF [place] CORONARY ARTERY W/O ANG PCTRS Status: Chronic (4) DM type 2 (diabetes mellitus, type 2) Status: Chronic Qualifiers: Chronic kidney disease stage: stage 2 (mild) (5) HTN (hypertension) Code(s): I10 - ESSENTIAL (PRIMARY) HYPERTENSION Status: Chronic (6) Morbid obesity with BMI of 50.0-59.9, adult Code(s): E66.01 - MORBID (SEVERE) OBESITY DUE TO EXCESS CALORIES; Z68.43 - BODY MASS INDEX (BMI) 50-59.9, ADULT Status: Acute (7) Other issues per previous notes - Plan Cont PO Keflex following by Pen VK 250 mg BID for few months per Dr Shaver Cont Bumex, Amiodarone, Coreg and other meds as below Resume Anticoag tomorrow Cont wound care SNF vs Rehab eval pending Stable for discharge Cont PT/OT
[2019-05-20] MEDS: Zolpidem Tartrate 5 MG TAB PO PRN (22:37)
[2019-05-21] MEDS: HYDROcodone/Acetaminophen 5/325 mg Tablet PO PRN ×4 (02:26→22:49)
[2019-05-21] MEDS: Ezetimibe 10 MG TAB PO SCH (09:10)
[2019-05-21] MEDS: Bumetanide 1 MG TAB PO SCH ×2 (09:11→15:50)
[2019-05-21] MEDS: Aspirin 81 mg Enteric Coated Tablet PO SCH (09:11)
[2019-05-21] MEDS: Amiodarone 200 MG TAB PO SCH (09:11)
[2019-05-21] MEDS: Saccharomyces boulardii 250 MG CAP PO SCH (09:11)
[2019-05-21] MEDS: Cephalexin 250 MG CAP PO SCH ×4 (09:11→21:34)
[2019-05-21] MEDS: Spironolactone 25 MG TAB PO SCH ×2 (09:11→21:33)
[2019-05-21] MEDS: Lisinopril 5 MG TAB PO SCH (09:11)
[2019-05-21] MEDS: Famotidine 20 MG TAB PO SCH ×2 (09:12→21:33)
[2019-05-21] MEDS: Carvedilol 3.125 MG TAB PO SCH ×2 (09:12→21:34)
--- NOTE | 2019-05-21 12:44 | PDOC.HOSPP ---
- Subjective Encounter Date: 05/21/19 Encounter Time: 11:30 Subjective: Patient seen and examined for CHF. Some discomfort over the ICD site. No CP. No new complaints. No overnight events - Objective Vital Signs & Weight: Vital Signs (12 hours) Temp Pulse Resp BP BP Pulse Ox 05/21/19 12:00 97.4 F L 60 17 115/75 93 L 05/21/19 09:11 69 05/21/19 07:25 97.9 F 69 18 125/70 92 L 05/21/19 04:00 97.4 F L 61 16 107/59 L 94 L Weight Admit Weight 444 lb 9.6 oz Weight 430 lb 9 oz I&O: 05/20/19 05/21/19 05/22/19 06:59 06:59 06:59 Intake Total 2250 1560 Output Total 1275 1400 Balance 975 160 Result Diagrams: 05/20/19 05:48 05/20/19 05:48 EKG Reviewed by me: Yes (Tele paced) ROS - Review of Systems Respiratory: reports: SOB with excertion. denies: cough, dry, shortness of breath, hemoptysis, pleuritic pain, sputum, wheezing, other Cardiovascular: denies: chest pain, palpitations, orthopnea, paroxysmal noc. dyspnea, edema, light headedness, other - Medication Medications: Active Medications Generic Name Dose Route Start Last Admin Trade Name Freq PRN Reason Stop Dose Admin Hydrocodone Bitart/Acetaminophen 1 tab 05/17/19 08:14 05/21/19 07:40 [place] 5/325 PO 1 tab Q4H PRN Administration Moderate to Severe Pain (6-10) Amiodarone HCl 200 mg 05/13/19 09:00 05/21/19 09:11 Cordarone PO 200 mg DAILY MIYA Administration Aspirin 81 mg 05/13/19 09:00 05/21/19 09:11 Ecotrin PO 81 mg DAILY MIYA Administration Atorvastatin Calcium 80 mg 05/12/19 21:00 05/20/19 20:52 Lipitor PO 80 mg HS MIYA Administration Bumetanide 1 mg 05/11/19 16:30 05/21/19 09:11 Bumex PO 1 mg BID-AC MIYA Administration Carvedilol 3.125 mg 05/12/19 21:00 05/21/19 09:12 Coreg PO 3.125 mg BID MIYA Administration Cephalexin 500 mg 05/19/19 21:00 05/21/19 09:11 Keflex PO 500 mg QID MIYA Administration Ezetimibe 10 mg 05/15/19 09:00 05/21/19 09:10 Zetia PO 10 mg DAILY MIYA Administration Famotidine 20 mg 05/09/19 21:00 05/21/19 09:12 Pepcid PO 20 mg BID MIYA Administration Lisinopril 5 mg 05/14/19 09:00 05/21/19 09:11 Zestril PO 5 mg DAILY MIYA Administration Promethazine HCl 25 mg 05/18/19 13:27 05/18/19 13:35 Phenergan PO 25 mg Q6H PRN Administration Nausea Saccharomyces Boulardii 250 mg 05/19/19 09:00 05/21/19 09:11 Florastor PO 250 mg DAILY MIYA Administration Senna/Docusate Sodium 2 tab 05/09/19 15:37 05/11/19 09:08 Senokot S PO 2 tab BID PRN Administration Constipation Sodium Chloride 10 ml 05/09/19 21:00 05/21/19 09:12 Flush - Normal Saline IVF Not Given Q12HR MIYA Sodium Chloride 10 ml 05/09/19 13:24 05/16/19 05:28 Flush - Normal Saline IVF 10 ml PRN PRN Administration Saline Flush Spironolactone 50 mg 05/13/19 21:00 05/21/19 09:11 Aldactone PO 50 mg BID MIYA Administration Zolpidem Tartrate 5 mg 05/09/19 15:48 05/20/19 22:37 Ambien PO 5 mg HSPRN PRN Administration Insomnia - Exam NAD Neck: supple, no JVD Heart: RRR, no gallops, no rubs Respiratory: CTAB, no rales Respiratory - other findings: AICD site - unchanged Gastrointestinal: soft, non-tender, normal bowel sounds Extremities: 1+ LE edema (RLE dressing +) Hosp A/P (1) Acute on chronic combined systolic (congestive) and diastolic (congestive) heart failure Code(s): I50.43 - ACUTE ON CHRONIC COMBINED SYSTOLIC AND DIASTOLIC HRT FAIL Status: Acute (2) Cellulitis, leg Code(s): L03.119 - CELLULITIS OF UNSPECIFIED PART OF LIMB Status: Acute Qualifiers: Laterality: right Qualified Code(s): L03.115 - Cellulitis of right lower limb (3) CAD (coronary artery disease) Code(s): I25.10 - ATHSCL HEART DISEASE OF [place] CORONARY ARTERY W/O ANG PCTRS Status: Chronic (4) DM type 2 (diabetes mellitus, type 2) Status: Chronic Qualifiers: Chronic kidney disease stage: stage 2 (mild) (5) HTN (hypertension) Code(s): I10 - ESSENTIAL (PRIMARY) HYPERTENSION Status: Chronic (6) Morbid obesity with BMI of 50.0-59.9, adult Code(s): E66.01 - MORBID (SEVERE) OBESITY DUE TO EXCESS CALORIES; Z68.43 - BODY MASS INDEX (BMI) 50-59.9, ADULT Status: Acute (7) Other issues per previous notes - Plan SNF Eval - Patient requesting swing bed in [place] Cont PO Keflex following by Pen VK 250 mg BID for few months (per Dr Shaver) Cont Bumex Cont Amiodarone, Coreg and other meds as below Resume Anticoag Cont wound care Stable for discharge AM labs
--- NOTE | 2019-05-21 13:23 | PDOC.CTH ---
Cardiology Progress Note - Subjective Paitent with c/o site pain to Pacer. No CP, SOB. - Objective Vital Signs Temp Pulse Resp BP BP Pulse Ox 05/21/19 12:00 97.4 F L 60 17 115/75 93 L 05/21/19 09:11 69 05/21/19 07:25 97.9 F 69 18 125/70 92 L 05/21/19 04:00 97.4 F L 61 16 107/59 L 94 L Admit Weight 444 lb 9.6 oz Weight 430 lb 9 oz 05/20/19 05/21/19 05/22/19 06:59 06:59 06:59 Intake Total 2250 1560 Output Total 1275 1400 Balance 975 160 - Physical Examination General/Neuro: alert & oriented x3 Neck: no JVD present Lungs: CTA Heart: RRR Abdomen: NT/ND - Telemetry Telemetry Rhythm: paced - Labs Result Diagrams: 05/20/19 05:48 05/20/19 05:48 Troponin/CKMB Troponin I Less than 0.010 ng/mL (< 0.028) 05/09/19 14:33 - Assessment/Plan 1. ICMO 2. s/p upgrade to BiV ICD 3. Atrial flutter 4. Obesity 5. RLE cellulitis Doing well. No evidence or infection to site. Mild hematoma. Placement being arranged. Ok to transfer.
[2019-05-21] MEDS: Apixaban 5 MG TAB PO SCH (18:08)
[2019-05-21] MEDS: Atorvastatin Calcium 40 MG TAB PO SCH (21:52)
[2019-05-21] MEDS: Zolpidem Tartrate 5 MG TAB PO PRN (21:54)
[2019-05-22 05:11] LABS: #Eosinphils 0.1 thou/uL (0.0-0.7); #Lymphocytes 0.7 thou/uL (1.20-3.40); #Monocytes 0.5 thou/uL (0.11-0.59); #Neutrophils 3.1 thou/uL (1.40-6.50); %Basophils 0.7 % (0.0-1.0); %Lymphocytes 15.3 % (21.0-51.0); %Monocytes 11.2 % (0.0-10.0); %Neutrophils 70.8 % (42.0-75.0); Hemoglobin 11.9 g/dL (14.0-18.0); Mean Corpuscular Volume 90.6 fL (78.0-98.0); Mean Platelet Volume 8.1 fL (7.4-10.4); Platelet Count 127 thou/uL (130-400); RBC Distribution Width 16.7 % (11.5-14.5); Red Blood Cell (RBC) Count 4.11 mill/uL (4.70-6.10); White Blood Cell (WBC) Count 4.3 thou/uL (4.8-10.8)
[2019-05-22] MEDS: Apixaban 5 MG TAB PO SCH ×2 (05:26→17:48)
[2019-05-22 05:29] LABS: Anion Gap 13 mmol/L (10-20); BUN (Urea Nitrogen) 32 mg/dL (8.4-25.7); Calc. Creatinine Clearance 166 mL/min (70-130); Calcium 8.9 mg/dL (7.8-10.44); Carbon Dioxide 25 mmol/L (23-31); Chloride 99 mmol/L (98-107); Estimated GFR-MDRD 57; Glucose 109 mg/dL (80-115); Sodium 133 mmol/L (136-145)
[2019-05-22] MEDS: HYDROcodone/Acetaminophen 5/325 mg Tablet PO PRN ×3 (06:27→22:17)
[2019-05-22] MEDS: Bumetanide 1 MG TAB PO SCH ×2 (10:26→17:50)
[2019-05-22] MEDS: Saccharomyces boulardii 250 MG CAP PO SCH (10:26)
[2019-05-22] MEDS: Ezetimibe 10 MG TAB PO SCH (10:26)
[2019-05-22] MEDS: Cephalexin 250 MG CAP PO SCH ×4 (10:28→20:14)
[2019-05-22] MEDS: Amiodarone 200 MG TAB PO SCH (10:28)
[2019-05-22] MEDS: Spironolactone 25 MG TAB PO SCH ×2 (10:28→20:15)
[2019-05-22] MEDS: Famotidine 20 MG TAB PO SCH ×2 (10:28→20:13)
[2019-05-22] MEDS: Aspirin 81 mg Enteric Coated Tablet PO SCH (10:29)
[2019-05-22] MEDS: Lisinopril 5 MG TAB PO SCH (10:29)
[2019-05-22] MEDS: Carvedilol 3.125 MG TAB PO SCH ×2 (10:30→20:15)
--- NOTE | 2019-05-22 14:48 | PRG ---
DATE OF SERVICE: 05/22/2019 SUBJECTIVE: Mr. Prather seems to be doing well three days post his Bi-V ICD upgrade. He has mild discomfort at the operation site. OBJECTIVE: VITAL SIGNS: Blood pressure is 123/74, heart rate 56, respirations 12, temperature 97.3 degrees Fahrenheit. GENERAL: Alert and oriented man, was morbidly obese, in no apparent distress. NECK: Supple. Jugular veins, difficult to visualize. CHEST: Coarse. No crackles. HEART: Sounds are distant. No murmur or gallop. Regular rate and rhythm. ABDOMEN: Benign. Bowel sounds positive. EXTREMITIES: Lower extremities without edema, clubbing, or cyanosis. LABORATORY DATA: White cell count 4.3, hemoglobin 11.9, platelet count is 127. Sodium 133, potassium 4, BUN is 32, creatinine 1.29. The chest x-rays are reviewed revealing adequate lead placement and no pneumothorax. ICD interrogation revealed adequate lead parameters with new RV lead ohms impedance. Capture threshold is 0.75 at 0.4 milliseconds and 0.5 V at 0.4 milliseconds. Sensing is about 5.1 mV in the RV. ASSESSMENT AND PLAN: Mr. Parther is a pleasant 59-year-old man with prior history of morbid obesity and ischemic cardiomyopathy, who had reduced left ventricular ejection fraction of 35% as well as frequent right ventricular pacing with markedly widened QRS, heart failure symptoms, who underwent a Bi-V ICD upgrade on Wednesday, seems to be doing well postop. His Telemetry now is demonstrating atrial ventricular pacing suggestive of return of sinus rhythm. He is also continuing low-dose amiodarone therapy and he was placed back on apixaban. Currently, there are no major signs of issues. No signs of worsening bleeding or infection. His rhythm status is also stable. Plan is to continue Keflex 4 times a day for the next week or longer if necessary for lower extremity issues. Continue routine heart failure management as per Dr. Alvarez. For now, we will continue amiodarone long-term. There is a consideration to wean him off amiodarone to see if atrial fibrillation would return after Bi-V pacing. He is strongly advised for weight loss and smoking cessation. Job ID: [id number] [facility]
[2019-05-22] MEDS: Atorvastatin Calcium 40 MG TAB PO SCH (20:13)
--- NOTE | 2019-05-22 21:56 | PDOC.HOSPP ---
- Subjective Encounter Date: 05/22/19 Encounter Time: 17:15 Subjective: Patient seen and examined for CHF/Cellulitis. No CP. No new complaints. No overnight events - Objective Vital Signs & Weight: Vital Signs (12 hours) Temp Pulse Pulse Pulse Resp BP BP 05/22/19 20:03 98.5 F 80 18 05/22/19 16:00 98.1 F 60 18 05/22/19 13:20 56 L 60 142/68 H 05/22/19 13:18 56 L 60 142/68 H 05/22/19 12:00 97.8 F 60 20 05/22/19 10:29 61 120/70 BP BP BP Pulse Ox 05/22/19 20:03 106/63 94 L 05/22/19 16:00 101/58 L 99 05/22/19 13:20 123/74 05/22/19 13:18 123/74 05/22/19 12:00 107/66 100 05/22/19 10:29 Weight Admit Weight 444 lb 9.6 oz Weight 430 lb 9 oz I&O: 05/21/19 05/22/19 05/23/19 06:59 06:59 06:59 Intake Total 1560 1410 900 Output Total 1400 1925 1050 Balance 160 -515 -150 Result Diagrams: 05/22/19 04:38 05/22/19 04:38 EKG Reviewed by me: Yes (Tele SR) ROS - Review of Systems Respiratory: denies: cough, dry, shortness of breath, hemoptysis, SOB with excertion, pleuritic pain, sputum, wheezing, other Cardiovascular: denies: chest pain, palpitations, orthopnea, paroxysmal noc. dyspnea, edema, light headedness, other - Medication Medications: Active Medications Generic Name Dose Route Start Last Admin Trade Name Freq PRN Reason Stop Dose Admin Hydrocodone Bitart/Acetaminophen 1 tab 05/17/19 08:14 05/22/19 12:28 [employer] 5/325 PO 1 tab Q4H PRN Administration Moderate to Severe Pain (6-10) Amiodarone HCl 200 mg 05/13/19 09:00 05/22/19 10:28 Cordarone PO 200 mg DAILY MIYA Administration Apixaban 5 mg 05/21/19 18:00 05/22/19 17:48 Eliquis PO 5 mg 0600,1800 MIYA Administration Aspirin 81 mg 05/13/19 09:00 05/22/19 10:29 Ecotrin PO 81 mg DAILY [facility] Administration Atorvastatin Calcium 80 mg 05/12/19 21:00 05/22/19 20:13 Lipitor PO 80 mg HS [facility] Administration Bumetanide 1 mg 05/11/19 16:30 05/22/19 17:50 Bumex PO Not Given BID-AC [facility] Carvedilol 3.125 mg 05/12/19 21:00 05/22/19 20:15 Coreg PO Not Given BID [facility] Cephalexin 500 mg 05/19/19 21:00 05/22/19 20:14 Keflex PO 500 mg QID [facility] Administration Ezetimibe 10 mg 05/15/19 09:00 05/22/19 10:26 Zetia PO 10 mg DAILY [facility] Administration Famotidine 20 mg 05/09/19 21:00 05/22/19 20:13 Pepcid PO 20 mg BID [facility] Administration Lisinopril 5 mg 05/14/19 09:00 05/22/19 10:29 Zestril PO 5 mg DAILY [facility] Administration Promethazine HCl 25 mg 05/18/19 13:27 05/18/19 13:35 Phenergan PO 25 mg Q6H PRN Administration Nausea Saccharomyces Boulardii 250 mg 05/19/19 09:00 05/22/19 10:26 Florastor PO 250 mg DAILY [facility] Administration Senna/Docusate Sodium 2 tab 05/09/19 15:37 05/11/19 09:08 Senokot S PO 2 tab BID PRN Administration Constipation Sodium Chloride 10 ml 05/09/19 21:00 05/22/19 20:15 Flush - Normal Saline IVF 10 ml Q12HR MIYA Administration Sodium Chloride 10 ml 05/09/19 13:24 05/16/19 05:28 Flush - Normal Saline IVF 10 ml PRN PRN Administration Saline Flush Spironolactone 50 mg 05/13/19 21:00 05/22/19 20:15 Aldactone PO Not Given BID [facility] Zolpidem Tartrate 5 mg 05/09/19 15:48 05/21/19 21:54 Ambien PO 5 mg HSPRN PRN Administration Insomnia - Exam NAD Heart: RRR, no rubs Respiratory: CTAB, no ronchi Gastrointestinal: soft, non-tender, normal bowel sounds Extremities: 1+ LE edema Extremeties - other findings: improving erythema over the RLE Neurological: no focal deficits Hosp A/P (1) Acute on chronic combined systolic (congestive) and diastolic (congestive) heart failure Code(s): I50.43 - ACUTE ON CHRONIC COMBINED SYSTOLIC AND DIASTOLIC HRT FAIL Status: Acute (2) Cellulitis, leg Code(s): L03.119 - CELLULITIS OF UNSPECIFIED PART OF LIMB Status: Acute Qualifiers: Laterality: right Qualified Code(s): L03.115 - Cellulitis of right lower limb (3) CAD (coronary artery disease) Code(s): I25.10 - ATHSCL HEART DISEASE OF [place] CORONARY ARTERY W/O ANG PCTRS Status: Chronic (4) DM type 2 (diabetes mellitus, type 2) Status: Chronic Qualifiers: Chronic kidney disease stage: stage 2 (mild) (5) HTN (hypertension) Code(s): I10 - ESSENTIAL (PRIMARY) HYPERTENSION Status: Chronic (6) Morbid obesity with BMI of 50.0-59.9, adult Code(s): E66.01 - MORBID (SEVERE) OBESITY DUE TO EXCESS CALORIES; Z68.43 - BODY MASS INDEX (BMI) 50-59.9, ADULT Status: Acute (7) Tobacco abuse Code(s): Z72.0 - TOBACCO USE Status: Acute (8) Other issues per previous notes - Plan SNF Eval pending Cont PO Keflex following by Pen VK 250 mg BID for few months (per Dr Shaver) Cont Bumex/Amiodarone/Coreg and other meds on Anticoag Cont wound care for RLE Cellulitis Stable for discharge AM labs Tobacco cessation emphasized.
[2019-05-22] MEDS: Zolpidem Tartrate 5 MG TAB PO PRN (22:20)
[2019-05-23] MEDS: Acetaminophen/Codeine 30-300mg Tablet PO PRN ×2 (00:10→23:21)
[2019-05-23] MEDS: HYDROcodone/Acetaminophen 5/325 mg Tablet PO PRN ×3 (04:23→21:08)
[2019-05-23] MEDS: Apixaban 5 MG TAB PO SCH ×2 (06:38→19:13)
[2019-05-23] MEDS: Lisinopril 5 MG TAB PO SCH (10:12)
[2019-05-23] MEDS: Aspirin 81 mg Enteric Coated Tablet PO SCH (10:16)
[2019-05-23] MEDS: Saccharomyces boulardii 250 MG CAP PO SCH (10:17)
[2019-05-23] MEDS: Cephalexin 250 MG CAP PO SCH ×4 (10:17→20:27)
[2019-05-23] MEDS: Famotidine 20 MG TAB PO SCH ×2 (10:17→20:27)
[2019-05-23] MEDS: Amiodarone 200 MG TAB PO SCH (10:17)
[2019-05-23] MEDS: Spironolactone 25 MG TAB PO SCH ×2 (10:17→20:28)
[2019-05-23] MEDS: Ezetimibe 10 MG TAB PO SCH (10:17)
[2019-05-23] MEDS: Carvedilol 3.125 MG TAB PO SCH ×2 (10:17→20:27)
[2019-05-23] MEDS: Bumetanide 1 MG TAB PO SCH (10:18)
--- NOTE | 2019-05-23 19:49 | PDOC.HOSPP ---
- Subjective Encounter Date: 05/23/19 Encounter Time: 10:30 Subjective: Patient seen and examined for CHF/Cellulitis. No diarrhea/fever or CP. No new complaints. No overnight events - Objective Vital Signs & Weight: Vital Signs (12 hours) Temp Pulse Resp BP BP Pulse Ox 05/23/19 16:00 97.5 F L 59 L 16 125/77 05/23/19 12:00 60 16 124/83 05/23/19 10:12 60 124/83 05/23/19 08:00 97.9 F 60 16 121/71 93 L Weight Admit Weight 444 lb 9.6 oz Weight 430 lb 9 oz I&O: 05/22/19 05/23/19 05/24/19 06:59 06:59 06:59 Intake Total 1410 2000 480 Output Total 1925 1050 Balance -515 950 480 Result Diagrams: 05/24/19 05:02 05/24/19 05:02 EKG Reviewed by me: Yes (Tele SR) Hospitalist ROS - Review of Systems Respiratory: denies: cough, dry, shortness of breath, hemoptysis, SOB with excertion, pleuritic pain, sputum, wheezing, other Cardiovascular: denies: chest pain, palpitations, orthopnea, paroxysmal noc. dyspnea, edema, light headedness, other Gastrointestinal: denies: nausea, vomitting, abdominal pain, diarrhea, constipation, melena, hematochezia, other - Medication Medications: Active Medications Generic Name Dose Route Start Last Admin Trade Name Freq PRN Reason Stop Dose Admin Acetaminophen/Codeine Phosphate 2 tab 05/19/19 18:00 05/23/19 00:10 Tylenol #3 PO 2 tab Q4H PRN Administration Moderate Pain (4-6) Hydrocodone Bitart/Acetaminophen 1 tab 05/17/19 08:14 05/23/19 10:23 [place] 5/325 PO 1 tab Q4H PRN Administration Moderate to Severe Pain (6-10) Amiodarone HCl 200 mg 05/13/19 09:00 05/23/19 10:17 Cordarone PO 200 mg DAILY MIYA Administration Apixaban 5 mg 05/21/19 18:00 05/23/19 19:13 Eliquis PO 5 mg 0600,1800 MIYA Administration Aspirin 81 mg 05/13/19 09:00 05/23/19 10:16 Ecotrin PO 81 mg DAILY MIYA Administration Atorvastatin Calcium 80 mg 05/12/19 21:00 05/22/19 20:13 Lipitor PO 80 mg HS MIYA Administration Carvedilol 3.125 mg 05/12/19 21:00 05/23/19 10:17 Coreg PO 3.125 mg BID MIYA Administration Cephalexin 500 mg 05/19/19 21:00 05/23/19 17:29 Keflex PO 500 mg QID MIYA Administration Ezetimibe 10 mg 05/15/19 09:00 05/23/19 10:17 Zetia PO 10 mg DAILY [facility]YA Administration Famotidine 20 mg 05/09/19 21:00 05/23/19 10:17 Pepcid PO 20 mg BID MIYA Administration Lisinopril 5 mg 05/14/19 09:00 05/23/19 10:12 Zestril PO 5 mg DAILY MIYA Administration Promethazine HCl 25 mg 05/18/19 13:27 05/18/19 13:35 Phenergan PO 25 mg Q6H PRN Administration Nausea Saccharomyces Boulardii 250 mg 05/19/19 09:00 05/23/19 10:17 Florastor PO 250 mg DAILY MIYA Administration Senna/Docusate Sodium 2 tab 05/09/19 15:37 05/11/19 09:08 Senokot S PO 2 tab BID PRN Administration Constipation Sodium Chloride 10 ml 05/09/19 21:00 05/23/19 10:25 Flush - Normal Saline IVF Not Given Q12HR MIYA Sodium Chloride 10 ml 05/09/19 13:24 05/16/19 05:28 Flush - Normal Saline IVF 10 ml PRN PRN Administration Saline Flush Spironolactone 50 mg 05/13/19 21:00 05/23/19 10:17 Aldactone PO 50 mg BID MIYA Administration Zolpidem Tartrate 5 mg 05/09/19 15:48 05/22/19 22:20 Ambien PO 5 mg HSPRN PRN Administration Insomnia - Exam General Appearance: NAD Heart: RRR, no gallops Respiratory: CTAB, no rales Gastrointestinal: soft, non-tender, normal bowel sounds Extremities: 1+ LE edema Neurological: no new deficit Hosp A/P (1) Acute on chronic combined systolic (congestive) and diastolic (congestive) heart failure Code(s): I50.43 - ACUTE ON CHRONIC COMBINED SYSTOLIC AND DIASTOLIC HRT FAIL Status: Acute (2) Cellulitis, leg Code(s): L03.119 - CELLULITIS OF UNSPECIFIED PART OF LIMB Status: Acute Qualifiers: Laterality: right Qualified Code(s): L03.115 - Cellulitis of right lower limb (3) CAD (coronary artery disease) Code(s): I25.10 - ATHSCL HEART DISEASE OF [place] CORONARY ARTERY W/O ANG PCTRS Status: Chronic (4) DM type 2 (diabetes mellitus, type 2) Status: Chronic Qualifiers: Chronic kidney disease stage: stage 2 (mild) (5) HTN (hypertension) Code(s): I10 - ESSENTIAL (PRIMARY) HYPERTENSION Status: Chronic (6) Morbid obesity with BMI of 50.0-59.9, adult Code(s): E66.01 - MORBID (SEVERE) OBESITY DUE TO EXCESS CALORIES; Z68.43 - BODY MASS INDEX (BMI) 50-59.9, ADULT Status: Acute (7) Tobacco abuse Code(s): Z72.0 - TOBACCO USE Status: Acute (8) Other issues per previous notes - Plan Cont PO Keflex following by Pen VK 250 mg BID for few months (per Dr Shaver) Reduce Bumex to daily per patient req Cont Amiodarone/Coreg and other meds on Anticoag Cont wound care for RLE Cellulitis SNF Eval pending
[2019-05-23] MEDS: Atorvastatin Calcium 40 MG TAB PO SCH (20:27)
[2019-05-23] MEDS: Zolpidem Tartrate 5 MG TAB PO PRN (21:08)
[2019-05-24 05:39] LABS: #Eosinphils 0.1 thou/uL (0.0-0.7); #Lymphocytes 0.7 thou/uL (1.20-3.40); #Monocytes 0.6 thou/uL (0.11-0.59); #Neutrophils 3.5 thou/uL (1.40-6.50); %Basophils 0.6 % (0.0-1.0); %Eosinophils 2.2 % (0.0-10.0); %Lymphocytes 13.7 % (21.0-51.0); %Monocytes 12.8 % (0.0-10.0); %Neutrophils 70.7 % (42.0-75.0); Hemoglobin 11.4 g/dL (14.0-18.0); Mean Corpuscular HGB CONC 30.6 g/dL (32.0-36.0); Mean Corpuscular Hemoglobin 27.8 pg (27.0-31.0); Platelet Count 121 thou/uL (130-400); RBC Distribution Width 16.4 % (11.5-14.5); Red Blood Cell (RBC) Count 4.11 mill/uL (4.70-6.10)
[2019-05-24 05:57] LABS: Anion Gap 13 mmol/L (10-20); BUN (Urea Nitrogen) 28 mg/dL (8.4-25.7); Calc. Creatinine Clearance 193 mL/min (70-130); Calcium 8.7 mg/dL (7.8-10.44); Carbon Dioxide 26 mmol/L (23-31); Chloride 98 mmol/L (98-107); Estimated GFR-MDRD 67; Glucose 79 mg/dL (80-115); Magnesium 2.1 mg/dL (1.6-2.6); Potassium 4.4 mmol/L (3.5-5.1); Sodium 133 mmol/L (136-145)
[2019-05-24] MEDS: Cephalexin 250 MG CAP PO SCH ×4 (07:38→20:58)
[2019-05-24] MEDS: Saccharomyces boulardii 250 MG CAP PO SCH (07:39)
[2019-05-24] MEDS: Aspirin 81 mg Enteric Coated Tablet PO SCH (07:39)
[2019-05-24] MEDS: Amiodarone 200 MG TAB PO SCH (07:40)
[2019-05-24] MEDS: Carvedilol 3.125 MG TAB PO SCH ×2 (07:40→20:58)
[2019-05-24] MEDS: Ezetimibe 10 MG TAB PO SCH (07:40)
[2019-05-24] MEDS: Apixaban 5 MG TAB PO SCH ×2 (07:41→20:58)
[2019-05-24] MEDS: Spironolactone 25 MG TAB PO SCH ×2 (07:41→20:59)
[2019-05-24] MEDS: Bumetanide 1 MG TAB PO SCH (07:42)
[2019-05-24] MEDS: Famotidine 20 MG TAB PO SCH ×2 (07:42→20:59)
[2019-05-24] MEDS: Lisinopril 5 MG TAB PO SCH (07:43)
[2019-05-24] MEDS: Senokot S 8.6-50 MG TAB PO PRN (12:30)
[2019-05-24 13:02] VITALS: BMI 52.4
[2019-05-24] MEDS: Atorvastatin Calcium 40 MG TAB PO SCH (20:58)
--- NOTE | 2019-05-24 22:04 | PDOC.HOSPP ---
- Subjective Encounter Date: 05/24/19 Encounter Time: 11:00 Subjective: Patient seen and examined for CHF/Leg infection. No CP/SOB or fever. No new complaints. No overnight events - Objective Vital Signs & Weight: Vital Signs (12 hours) Temp Pulse Resp BP Pulse Ox 05/24/19 16:00 96.9 F L 57 L 17 101/71 94 L 05/24/19 12:00 97.0 F L 60 16 100/64 93 L Weight Admit Weight 444 lb 9.6 oz Weight 430 lb 9 oz I&O: 05/23/19 05/24/19 05/25/19 06:59 06:59 06:59 Intake Total 2000 1980 720 Output Total 1050 1550 750 Balance 950 430 -30 Result Diagrams: 05/24/19 05:02 05/24/19 05:02 EKG Reviewed by me: Yes (Tele Paced) Hospitalist ROS - Review of Systems Cardiovascular: denies: chest pain, palpitations, orthopnea, paroxysmal noc. dyspnea, edema, light headedness, other Gastrointestinal: denies: nausea, vomitting, abdominal pain, diarrhea, constipation, melena, hematochezia, other - Medication Medications: Active Medications Generic Name Dose Route Start Last Admin Trade Name Freq PRN Reason Stop Dose Admin Acetaminophen/Codeine Phosphate 2 tab 05/19/19 18:00 05/23/19 23:21 Tylenol #3 PO 2 tab Q4H PRN Administration Moderate Pain (4-6) Hydrocodone Bitart/Acetaminophen 1 tab 05/17/19 08:14 05/23/19 21:08 [place] 5/325 PO 1 tab Q4H PRN Administration Moderate to Severe Pain (6-10) Amiodarone HCl 200 mg 05/13/19 09:00 05/24/19 07:40 Cordarone PO 200 mg DAILY MIYA Administration Apixaban 5 mg 05/24/19 09:00 05/24/19 20:58 Eliquis PO 5 mg Q12HR MIYA Administration Aspirin 81 mg 05/13/19 09:00 05/24/19 07:39 Ecotrin PO Not Given DAILY MIAY Atorvastatin Calcium 80 mg 05/12/19 21:00 05/24/19 20:58 Lipitor PO 80 mg HS MIYA Administration Bumetanide 1 mg 05/24/19 07:30 05/24/19 07:42 Bumex PO Not Given DAILY-AC [facility] Carvedilol 3.125 mg 05/12/19 21:00 05/24/19 20:58 Coreg PO 3.125 mg BID [facility] Administration Cephalexin 500 mg 05/19/19 21:00 05/24/19 20:58 Keflex PO 500 mg QID MIYA Administration Ezetimibe 10 mg 05/15/19 09:00 05/24/19 07:40 Zetia PO 10 mg DAILY [facility] Administration Famotidine 20 mg 05/09/19 21:00 05/24/19 20:59 Pepcid PO Not Given BID [facility] Lisinopril 5 mg 05/14/19 09:00 05/24/19 07:43 Zestril PO Not Given DAILY [facility] Promethazine HCl 25 mg 05/18/19 13:27 05/18/19 13:35 Phenergan PO 25 mg Q6H PRN Administration Nausea Saccharomyces Boulardii 250 mg 05/19/19 09:00 05/24/19 07:39 Florastor PO 250 mg DAILY [facility] Administration Senna/Docusate Sodium 2 tab 05/09/19 15:37 05/24/19 12:30 Senokot S PO 2 tab BID PRN Administration Constipation Sodium Chloride 10 ml 05/09/19 21:00 05/24/19 20:59 Flush - Normal Saline IVF Not Given Q12HR MIYA Sodium Chloride 10 ml 05/09/19 13:24 05/16/19 05:28 Flush - Normal Saline IVF 10 ml PRN PRN Administration Saline Flush Spironolactone 50 mg 05/13/19 21:00 05/24/19 20:59 Aldactone PO Not Given BID [facility] Zolpidem Tartrate 5 mg 05/09/19 15:48 05/23/19 21:08 Ambien PO 5 mg HSPRN PRN Administration Insomnia - Exam General Appearance: NAD Heart: RRR, no rubs Respiratory: CTAB, no ronchi Gastrointestinal: soft, non-distended Extremities: no cyanosis, no edema Neurological: no new deficit Hosp A/P (1) Acute on chronic combined systolic (congestive) and diastolic (congestive) heart failure Code(s): I50.43 - ACUTE ON CHRONIC COMBINED SYSTOLIC AND DIASTOLIC HRT FAIL Status: Acute (2) Cellulitis, leg Code(s): L03.119 - CELLULITIS OF UNSPECIFIED PART OF LIMB Status: Acute Qualifiers: Laterality: right Qualified Code(s): L03.115 - Cellulitis of right lower limb (3) CAD (coronary artery disease) Code(s): I25.10 - ATHSCL HEART DISEASE OF [place] CORONARY ARTERY W/O ANG PCTRS Status: Chronic (4) DM type 2 (diabetes mellitus, type 2) Status: Chronic Qualifiers: Chronic kidney disease stage: stage 2 (mild) (5) HTN (hypertension) Code(s): I10 - ESSENTIAL (PRIMARY) HYPERTENSION Status: Chronic (6) Morbid obesity with BMI of 50.0-59.9, adult Code(s): E66.01 - MORBID (SEVERE) OBESITY DUE TO EXCESS CALORIES; Z68.43 - BODY MASS INDEX (BMI) 50-59.9, ADULT Status: Acute (7) Tobacco abuse Code(s): Z72.0 - TOBACCO USE Status: Acute (8) Other issues per previous notes - Plan Cont Amiodarone/Bumex/Coreg/Eliquis and other meds Cont PO Keflex following by Pen VK 250 mg BID for few months (per Dr Shaver) Cont wound care for RLE Cellulitis SNF Eval pending
[2019-05-24] MEDS: Acetaminophen/Codeine 30-300mg Tablet PO PRN (22:20)
[2019-05-24] MEDS: Zolpidem Tartrate 5 MG TAB PO PRN (22:20)
[2019-05-25] MEDS: Saccharomyces boulardii 250 MG CAP PO SCH (09:58)
[2019-05-25] MEDS: Ezetimibe 10 MG TAB PO SCH (09:58)
[2019-05-25] MEDS: Cephalexin 250 MG CAP PO SCH ×4 (09:59→19:48)
[2019-05-25] MEDS: Spironolactone 25 MG TAB PO SCH ×2 (09:59→19:52)
[2019-05-25] MEDS: Apixaban 5 MG TAB PO SCH ×2 (10:01→19:48)
[2019-05-25] MEDS: Famotidine 20 MG TAB PO SCH ×2 (10:01→19:52)
[2019-05-25] MEDS: Aspirin 81 mg Enteric Coated Tablet PO SCH (10:01)
[2019-05-25] MEDS: Carvedilol 3.125 MG TAB PO SCH ×2 (10:02→19:48)
[2019-05-25] MEDS: Bumetanide 1 MG TAB PO SCH (10:03)
[2019-05-25] MEDS: Amiodarone 200 MG TAB PO SCH (10:04)
[2019-05-25] MEDS: Lisinopril 5 MG TAB PO SCH (10:04)
--- NOTE | 2019-05-25 16:51 | PDOC.HOSPP ---
- Subjective Encounter Date: 05/25/19 Encounter Time: 16:00 Subjective: Patient seen and examined for CHF. No CP/SOB/fever. No new complaints. No overnight events - Objective Vital Signs & Weight: Vital Signs (12 hours) Temp Pulse Resp BP BP Pulse Ox 05/25/19 12:55 98.2 F 68 20 116/64 94 L 05/25/19 10:04 60 05/25/19 09:53 97.8 F 60 20 109/57 L 93 L Weight Admit Weight 444 lb 9.6 oz Weight 430 lb 9 oz I&O: 05/24/19 05/25/19 05/26/19 06:59 06:59 06:59 Intake Total 1980 1320 Output Total 1550 1250 325 Balance 430 70 -325 Result Diagrams: 05/24/19 05:02 05/24/19 05:02 EKG Reviewed by me: Yes (Tele paced) Hospitalist ROS - Review of Systems Cardiovascular: denies: chest pain, palpitations, orthopnea, paroxysmal noc. dyspnea, edema, light headedness, other Gastrointestinal: denies: nausea, vomitting, abdominal pain, diarrhea, constipation, melena, hematochezia, other - Medication Medications: Active Medications Generic Name Dose Route Start Last Admin Trade Name Freq PRN Reason Stop Dose Admin Acetaminophen/Codeine Phosphate 2 tab 05/19/19 18:00 05/24/19 22:20 Tylenol #3 PO 2 tab Q4H PRN Administration Moderate Pain (4-6) Hydrocodone Bitart/Acetaminophen 1 tab 05/17/19 08:14 05/23/19 21:08 [place] 5/325 PO 1 tab Q4H PRN Administration Moderate to Severe Pain (6-10) Amiodarone HCl 200 mg 05/13/19 09:00 05/25/19 10:04 Cordarone PO Not Given DAILY MIYA Apixaban 5 mg 05/24/19 09:00 05/25/19 10:01 Eliquis PO 5 mg Q12HR MIYA Administration Aspirin 81 mg 05/13/19 09:00 05/25/19 10:01 Ecotrin PO 81 mg DAILY MIYA Administration Atorvastatin Calcium 80 mg 05/12/19 21:00 05/24/19 20:58 Lipitor PO 80 mg HS MIYA Administration Bumetanide 1 mg 05/24/19 07:30 05/25/19 10:03 Bumex PO Not Given DAILY-AC [facility] Carvedilol 3.125 mg 05/12/19 21:00 05/25/19 10:02 Coreg PO 3.125 mg BID [facility] Administration Cephalexin 500 mg 05/19/19 21:00 05/25/19 13:42 Keflex PO 500 mg QID MIYA Administration Ezetimibe 10 mg 05/15/19 09:00 05/25/19 09:58 Zetia PO 10 mg DAILY [facility] Administration Famotidine 20 mg 05/09/19 21:00 05/25/19 10:01 Pepcid PO 20 mg BID [facility] Administration Lisinopril 5 mg 05/14/19 09:00 05/25/19 10:04 Zestril PO Not Given DAILY [facility] Promethazine HCl 25 mg 05/18/19 13:27 05/18/19 13:35 Phenergan PO 25 mg Q6H PRN Administration Nausea Saccharomyces Boulardii 250 mg 05/19/19 09:00 05/25/19 09:58 Florastor PO 250 mg DAILY [facility] Administration Senna/Docusate Sodium 2 tab 05/09/19 15:37 05/24/19 12:30 Senokot S PO 2 tab BID PRN Administration Constipation Sodium Chloride 10 ml 05/09/19 21:00 05/25/19 10:04 Flush - Normal Saline IVF Not Given Q12HR MIYA Sodium Chloride 10 ml 05/09/19 13:24 05/16/19 05:28 Flush - Normal Saline IVF 10 ml PRN PRN Administration Saline Flush Spironolactone 50 mg 05/13/19 21:00 05/25/19 09:59 Aldactone PO Not Given BID [facility] Zolpidem Tartrate 5 mg 05/09/19 15:48 05/24/19 22:20 Ambien PO 5 mg HSPRN PRN Administration Insomnia - Exam General Appearance: NAD Heart: RRR, no rubs Respiratory: CTAB, no rales Gastrointestinal: soft, non-tender, normal bowel sounds Extremities: 1+ LE edema (RLE wound dressing +) Hosp A/P (1) Acute on chronic combined systolic (congestive) and diastolic (congestive) heart failure Code(s): I50.43 - ACUTE ON CHRONIC COMBINED SYSTOLIC AND DIASTOLIC HRT FAIL Status: Acute (2) Cellulitis, leg Code(s): L03.119 - CELLULITIS OF UNSPECIFIED PART OF LIMB Status: Acute Qualifiers: Laterality: right Qualified Code(s): L03.115 - Cellulitis of right lower limb (3) CAD (coronary artery disease) Code(s): I25.10 - ATHSCL HEART DISEASE OF [place] CORONARY ARTERY W/O ANG PCTRS Status: Chronic (4) DM type 2 (diabetes mellitus, type 2) Status: Chronic Qualifiers: Chronic kidney disease stage: stage 2 (mild) (5) HTN (hypertension) Code(s): I10 - ESSENTIAL (PRIMARY) HYPERTENSION Status: Chronic (6) Morbid obesity with BMI of 50.0-59.9, adult Code(s): E66.01 - MORBID (SEVERE) OBESITY DUE TO EXCESS CALORIES; Z68.43 - BODY MASS INDEX (BMI) 50-59.9, ADULT Status: Acute (7) Tobacco abuse Code(s): Z72.0 - TOBACCO USE Status: Acute (8) Other issues per previous notes - Plan Cont Amiodarone/Bumex/Coreg/Eliquis and other meds Cont PO Keflex (Patient will need Pen VK 250 mg BID for few months after completion of Keflex (per Dr Shaver) Cont wound care SNF Eval pending Stable for discharge
[2019-05-25] MEDS: Atorvastatin Calcium 40 MG TAB PO SCH (19:48)
[2019-05-25] MEDS: Acetaminophen/Codeine 30-300mg Tablet PO PRN (19:48)
[2019-05-25] MEDS: Zolpidem Tartrate 5 MG TAB PO PRN (23:08)
[2019-05-25] MEDS: HYDROcodone/Acetaminophen 5/325 mg Tablet PO PRN (23:08)
[2019-05-26] MEDS: Apixaban 5 MG TAB PO SCH ×2 (08:58→21:38)
[2019-05-26] MEDS: Cephalexin 250 MG CAP PO SCH ×4 (08:58→21:38)
[2019-05-26] MEDS: Saccharomyces boulardii 250 MG CAP PO SCH (08:58)
[2019-05-26] MEDS: Ezetimibe 10 MG TAB PO SCH (08:58)
[2019-05-26] MEDS: Carvedilol 3.125 MG TAB PO SCH ×2 (08:59→21:38)
[2019-05-26] MEDS: Bumetanide 1 MG TAB PO SCH (08:59)
[2019-05-26] MEDS: Lisinopril 5 MG TAB PO SCH (08:59)
[2019-05-26] MEDS: Aspirin 81 mg Enteric Coated Tablet PO SCH (09:00)
[2019-05-26] MEDS: Famotidine 20 MG TAB PO SCH ×2 (09:00→21:38)
[2019-05-26] MEDS: Amiodarone 200 MG TAB PO SCH (09:01)
[2019-05-26] MEDS: Spironolactone 25 MG TAB PO SCH ×2 (09:02→21:39)
[2019-05-26] MEDS: Atorvastatin Calcium 40 MG TAB PO SCH (21:38)
--- NOTE | 2019-05-26 22:23 | PDOC.HOSPP ---
- Subjective Encounter Date: 05/26/19 Encounter Time: 11:30 Subjective: Patient seen and examined for CHF/Cellulitis. No fever or chills. No CP. No new complaints. No overnight events - Objective Vital Signs & Weight: Vital Signs (12 hours) Temp Pulse Resp BP Pulse Ox 05/26/19 20:31 98.2 F 59 L 18 112/57 L 95 05/26/19 16:00 98.6 F 56 L 18 98/53 L 93 L 05/26/19 11:35 98.5 F 97 17 105/55 L 96 Weight Admit Weight 444 lb 9.6 oz Weight 430 lb 9 oz I&O: 05/25/19 05/26/19 05/27/19 06:59 06:59 06:59 Intake Total 1320 1920 960 Output Total 1250 5235 1775 Balance 70 -655 -815 Result Diagrams: 05/27/19 04:48 05/27/19 04:48 EKG Reviewed by me: Yes (Tele paced) Hospitalist ROS - Review of Systems Cardiovascular: denies: chest pain, palpitations, orthopnea, paroxysmal noc. dyspnea, edema, light headedness, other Gastrointestinal: denies: nausea, vomitting, abdominal pain, diarrhea, constipation, melena, hematochezia, other - Medication Medications: Active Medications Generic Name Dose Route Start Last Admin Trade Name Freq PRN Reason Stop Dose Admin Acetaminophen/Codeine Phosphate 2 tab 05/19/19 18:00 05/25/19 19:48 Tylenol #3 PO 2 tab Q4H PRN Administration Moderate Pain (4-6) Hydrocodone Bitart/Acetaminophen 1 tab 05/17/19 08:14 05/25/19 23:08 [place] 5/325 PO 1 tab Q4H PRN Administration Moderate to Severe Pain (6-10) Amiodarone HCl 200 mg 05/13/19 09:00 05/26/19 09:01 Cordarone PO 200 mg DAILY MIYA Administration Apixaban 5 mg 05/24/19 09:00 05/26/19 21:38 Eliquis PO 5 mg Q12HR MIYA Administration Aspirin 81 mg 05/13/19 09:00 05/26/19 09:00 Ecotrin PO 81 mg DAILY MIYA Administration Atorvastatin Calcium 80 mg 05/12/19 21:00 05/26/19 21:38 Lipitor PO 80 mg HS MIYA Administration Bumetanide 1 mg 05/24/19 07:30 05/26/19 08:59 Bumex PO 1 mg DAILY-AC [facility] Administration Carvedilol 3.125 mg 05/12/19 21:00 05/26/19 21:38 Coreg PO 3.125 mg BID MIYA Administration Cephalexin 500 mg 05/19/19 21:00 05/26/19 21:38 Keflex PO 500 mg QID MIYA Administration Ezetimibe 10 mg 05/15/19 09:00 05/26/19 08:58 Zetia PO 10 mg DAILY [facility] Administration Famotidine 20 mg 05/09/19 21:00 05/26/19 21:38 Pepcid PO Not Given BID [facility] Lisinopril 5 mg 05/14/19 09:00 05/26/19 08:59 Zestril PO 5 mg DAILY [facility] Administration Promethazine HCl 25 mg 05/18/19 13:27 05/18/19 13:35 Phenergan PO 25 mg Q6H PRN Administration Nausea Saccharomyces Boulardii 250 mg 05/19/19 09:00 05/26/19 08:58 Florastor PO 250 mg DAILY [facility] Administration Senna/Docusate Sodium 2 tab 05/09/19 15:37 05/24/19 12:30 Senokot S PO 2 tab BID PRN Administration Constipation Sodium Chloride 10 ml 05/09/19 21:00 05/26/19 22:21 Flush - Normal Saline IVF Not Given Q12HR MIYA Sodium Chloride 10 ml 05/09/19 13:24 05/16/19 05:28 Flush - Normal Saline IVF 10 ml PRN PRN Administration Saline Flush Spironolactone 50 mg 05/13/19 21:00 05/26/19 21:39 Aldactone PO Not Given BID [facility] Zolpidem Tartrate 5 mg 05/09/19 15:48 05/25/19 23:08 Ambien PO 5 mg HSPRN PRN Administration Insomnia - Exam General Appearance: NAD Heart: RRR, no rubs Respiratory: CTAB, no wheezes, no ronchi Gastrointestinal: soft, non-tender, normal bowel sounds Extremities: 1+ LE edema Hosp A/P (1) Acute on chronic combined systolic (congestive) and diastolic (congestive) heart failure Code(s): I50.43 - ACUTE ON CHRONIC COMBINED SYSTOLIC AND DIASTOLIC HRT FAIL Status: Acute (2) Cellulitis, leg Code(s): L03.119 - CELLULITIS OF UNSPECIFIED PART OF LIMB Status: Acute Qualifiers: Laterality: right Qualified Code(s): L03.115 - Cellulitis of right lower limb (3) CAD (coronary artery disease) Code(s): I25.10 - ATHSCL HEART DISEASE OF [place] CORONARY ARTERY W/O ANG PCTRS Status: Chronic (4) DM type 2 (diabetes mellitus, type 2) Status: Chronic Qualifiers: Chronic kidney disease stage: stage 2 (mild) (5) HTN (hypertension) Code(s): I10 - ESSENTIAL (PRIMARY) HYPERTENSION Status: Chronic (6) Morbid obesity with BMI of 50.0-59.9, adult Code(s): E66.01 - MORBID (SEVERE) OBESITY DUE TO EXCESS CALORIES; Z68.43 - BODY MASS INDEX (BMI) 50-59.9, ADULT Status: Acute (7) Tobacco abuse Code(s): Z72.0 - TOBACCO USE Status: Acute (8) Other issues per previous notes - Plan Cont PO Keflex (Patient will need Pen VK 250 mg BID for few months after completion of Keflex (per Dr Shaver) Cont Amiodarone/Bumex/Coreg/Eliquis and other meds Cont wound care Add low dose Gabapentin per patient request SNF Eval pending Stable for discharge
[2019-05-26] MEDS: Acetaminophen/Codeine 30-300mg Tablet PO PRN (23:57)
[2019-05-26] MEDS: Zolpidem Tartrate 5 MG TAB PO PRN (23:58)
[2019-05-27 05:37] LABS: #Basophils 0.1 thou/uL (0.0-0.2); #Eosinphils 0.1 thou/uL (0.0-0.7); #Lymphocytes 0.6 thou/uL (1.20-3.40); #Monocytes 0.7 thou/uL (0.11-0.59); #Neutrophils 3.5 thou/uL (1.40-6.50); %Basophils 1.3 % (0.0-1.0); %Eosinophils 1.6 % (0.0-10.0); %Lymphocytes 12.2 % (21.0-51.0); %Monocytes 14.8 % (0.0-10.0); Hemoglobin 11.1 g/dL (14.0-18.0); Mean Corpuscular HGB CONC 31.3 g/dL (32.0-36.0); Mean Corpuscular Hemoglobin 28.5 pg (27.0-31.0); Mean Corpuscular Volume 91.2 fL (78.0-98.0); Platelet Count 113 thou/uL (130-400); RBC Distribution Width 16.3 % (11.5-14.5); Red Blood Cell (RBC) Count 3.89 mill/uL (4.70-6.10)
[2019-05-27 05:47] LABS: Anion Gap 12 mmol/L (10-20); BUN (Urea Nitrogen) 26 mg/dL (8.4-25.7); Calc. Creatinine Clearance 212 mL/min (70-130); Calcium 8.8 mg/dL (7.8-10.44); Carbon Dioxide 24 mmol/L (23-31); Chloride 103 mmol/L (98-107); Estimated GFR-MDRD 75; Glucose 101 mg/dL (80-115); Potassium 4.6 mmol/L (3.5-5.1); Sodium 134 mmol/L (136-145)
[2019-05-27] MEDS: Ezetimibe 10 MG TAB PO SCH (08:54)
[2019-05-27] MEDS: Aspirin 81 mg Enteric Coated Tablet PO SCH (08:54)
[2019-05-27] MEDS: Famotidine 20 MG TAB PO SCH ×2 (08:56→20:43)
[2019-05-27] MEDS: Apixaban 5 MG TAB PO SCH ×2 (08:56→20:42)
[2019-05-27] MEDS: Bumetanide 1 MG TAB PO SCH (08:56)
[2019-05-27] MEDS: Gabapentin 100 MG CAP PO SCH (08:56)
[2019-05-27] MEDS: Cephalexin 250 MG CAP PO SCH ×4 (08:56→20:41)
[2019-05-27] MEDS: Amiodarone 200 MG TAB PO SCH (08:56)
[2019-05-27] MEDS: Lisinopril 5 MG TAB PO SCH (08:57)
[2019-05-27] MEDS: Spironolactone 25 MG TAB PO SCH ×2 (08:57→20:44)
[2019-05-27] MEDS: Carvedilol 3.125 MG TAB PO SCH ×2 (08:58→20:43)
[2019-05-27] MEDS: Saccharomyces boulardii 250 MG CAP PO SCH (08:58)
--- NOTE | 2019-05-27 11:28 | PDOC.HOSPP ---
- Subjective Encounter Date: 05/27/19 Encounter Time: 11:26 Subjective: Patient seen and examine, no new issues. - Objective Vital Signs & Weight: Vital Signs (12 hours) Temp Pulse Resp BP BP Pulse Ox 05/27/19 08:57 60 05/27/19 07:25 97.5 F L 60 15 100/55 L 95 05/27/19 03:49 98 F 61 18 102/54 L 93 L Weight Admit Weight 444 lb 9.6 oz Weight 430 lb 9 oz I&O: 05/26/19 05/27/19 05/28/19 06:59 06:59 06:59 Intake Total 1920 1510 240 Output Total 7775 2300 Balance -611 -147 240 Result Diagrams: 05/27/19 04:48 05/27/19 04:48 Hospitalist ROS - Medication Medications: Active Medications Generic Name Dose Route Start Last Admin Trade Name Freq PRN Reason Stop Dose Admin Acetaminophen/Codeine Phosphate 2 tab 05/19/19 18:00 05/26/19 23:57 Tylenol #3 PO 2 tab Q4H PRN Administration Moderate Pain (4-6) Amiodarone HCl 200 mg 05/13/19 09:00 05/27/19 08:56 Cordarone PO 200 mg DAILY [facility] Administration Apixaban 5 mg 05/24/19 09:00 05/27/19 08:56 Eliquis PO 5 mg Q12HR MIYA Administration Aspirin 81 mg 05/13/19 09:00 05/27/19 08:54 Ecotrin PO 81 mg DAILY [facility] Administration Atorvastatin Calcium 80 mg 05/12/19 21:00 05/26/19 21:38 Lipitor PO 80 mg HS [facility]YA Administration Bumetanide 1 mg 05/24/19 07:30 05/27/19 08:56 Bumex PO 1 mg DAILY-AC [facility] Administration Carvedilol 3.125 mg 05/12/19 21:00 05/27/19 08:58 Coreg PO 3.125 mg BID [facility] Administration Cephalexin 500 mg 05/19/19 21:00 05/27/19 08:56 Keflex PO 500 mg QID [facility]YA Administration Ezetimibe 10 mg 05/15/19 09:00 05/27/19 08:54 Zetia PO 10 mg DAILY [facility] Administration Famotidine 20 mg 05/09/19 21:00 05/27/19 08:56 Pepcid PO 20 mg BID [facility] Administration Gabapentin 100 mg 05/27/19 09:00 05/27/19 08:56 Neurontin PO 100 mg DAILY [facility] Administration Lisinopril 5 mg 05/14/19 09:00 05/27/19 08:57 Zestril PO Not Given DAILY [facility] Promethazine HCl 25 mg 05/18/19 13:27 05/18/19 13:35 Phenergan PO 25 mg Q6H PRN Administration Nausea Saccharomyces Boulardii 250 mg 05/19/19 09:00 05/27/19 08:58 Florastor PO 250 mg DAILY [facility] Administration Senna/Docusate Sodium 2 tab 05/09/19 15:37 05/24/19 12:30 Senokot S PO 2 tab BID PRN Administration Constipation Sodium Chloride 10 ml 05/09/19 21:00 05/27/19 08:59 Flush - Normal Saline IVF Not Given Q12HR MIYA Sodium Chloride 10 ml 05/09/19 13:24 05/16/19 05:28 Flush - Normal Saline IVF 10 ml PRN PRN Administration Saline Flush Spironolactone 50 mg 05/13/19 21:00 05/27/19 08:57 Aldactone PO Not Given BID [facility] Zolpidem Tartrate 5 mg 05/09/19 15:48 05/26/19 23:58 Ambien PO 5 mg HSPRN PRN Administration Insomnia - Exam General Appearance: NAD, awake alert General - other findings: morbidly obese Eye: PERRL, anicteric sclera ENT: normocephalic atraumatic, no oropharyngeal lesions Neck: supple, symmetric, no JVD, no thyromegaly Heart: RRR, no murmur, no gallops, no rubs Respiratory: CTAB, no wheezes, no rales, no ronchi Gastrointestinal: soft, non-tender, non-distended, normal bowel sounds Hosp A/P (1) Acute on chronic combined systolic (congestive) and diastolic (congestive) heart failure Code(s): I50.43 - ACUTE ON CHRONIC COMBINED SYSTOLIC AND DIASTOLIC HRT FAIL Status: Acute (2) Morbid obesity with BMI of 50.0-59.9, adult Code(s): E66.01 - [place]ORBID (SEVERE) OBESITY DUE TO EXCESS CALORIES; Z68.43 - BODY MASS INDEX (BMI) 50-59.9, ADULT Status: Acute (3) Tobacco abuse Code(s): Z72.0 - TOBACCO USE Status: Acute (4) Chronic venous stasis dermatitis of both lower extremities Code(s): I87.2 - VENOUS INSUFFICIENCY (CHRONIC) (PERIPHERAL) Status: Chronic (5) Ischemic cardiomyopathy Code(s): I25.5 - ISCHEMIC CARDIOMYOPATHY Status: Chronic (6) CAD (coronary artery disease) Code(s): I25.10 - ATHSCL HEART DISEASE OF [place] CORONARY ARTERY W/O ANG PCTRS Status: Chronic (7) DM type 2 (diabetes mellitus, type 2) Status: Chronic Qualifiers: Chronic kidney disease stage: stage 2 (mild) (8) HTN (hypertension) Code(s): I10 - ESSENTIAL (PRIMARY) HYPERTENSION Status: Chronic - Plan - pending SNF placement - cont current plan of care, no changes - vitals stable - DC to SNF once arrangements made - case and plan d/w patient at length, he understood and agreed with this plan.
[2019-05-27] MEDS: Atorvastatin Calcium 40 MG TAB PO SCH (20:42)
[2019-05-27] MEDS: Zolpidem Tartrate 5 MG TAB PO PRN (23:46)
[2019-05-27] MEDS: Acetaminophen/Codeine 30-300mg Tablet PO PRN (23:46)
[2019-05-28] MEDS: Ezetimibe 10 MG TAB PO SCH (09:01)
[2019-05-28] MEDS: Gabapentin 100 MG CAP PO SCH (09:02)
[2019-05-28] MEDS: Cephalexin 250 MG CAP PO SCH ×4 (09:02→20:45)
[2019-05-28] MEDS: Bumetanide 1 MG TAB PO SCH (09:02)
[2019-05-28] MEDS: Saccharomyces boulardii 250 MG CAP PO SCH (09:03)
[2019-05-28] MEDS: Famotidine 20 MG TAB PO SCH ×2 (09:03→20:46)
[2019-05-28] MEDS: Aspirin 81 mg Enteric Coated Tablet PO SCH (09:03)
[2019-05-28] MEDS: Apixaban 5 MG TAB PO SCH ×2 (09:03→20:45)
[2019-05-28] MEDS: Carvedilol 3.125 MG TAB PO SCH ×2 (09:04→21:02)
[2019-05-28] MEDS: Spironolactone 25 MG TAB PO SCH ×2 (09:05→20:47)
[2019-05-28] MEDS: Amiodarone 200 MG TAB PO SCH (09:05)
[2019-05-28] MEDS: Lisinopril 5 MG TAB PO SCH (09:05)
--- NOTE | 2019-05-28 12:08 | PDOC.HOSPP ---
- Subjective Encounter Date: 05/28/19 Encounter Time: 09:45 Subjective: no sob or palp feels better has not amb much - Objective Vital Signs & Weight: Vital Signs (12 hours) Temp Pulse Resp BP BP Pulse Ox 05/28/19 09:05 62 05/28/19 08:00 98.1 F 62 18 118/68 94 L 05/28/19 03:55 98.6 F 60 12 122/63 93 L Weight Admit Weight 444 lb 9.6 oz Weight 430 lb 9 oz I&O: 05/27/19 05/28/19 05/29/19 06:59 06:59 06:59 Intake Total 1510 1600 Output Total 2300 1550 Balance -790 50 Result Diagrams: 05/27/19 04:48 05/27/19 04:48 Hospitalist ROS - Medication Medications: Active Medications Generic Name Dose Route Start Last Admin Trade Name Freq PRN Reason Stop Dose Admin Acetaminophen/Codeine Phosphate 2 tab 05/19/19 18:00 05/27/19 23:46 Tylenol #3 PO 2 tab Q4H PRN Administration Moderate Pain (4-6) Amiodarone HCl 200 mg 05/13/19 09:00 05/28/19 09:05 Cordarone PO 200 mg DAILY MIYA Administration Apixaban 5 mg 05/24/19 09:00 05/28/19 09:03 Eliquis PO 5 mg Q12HR MIYA Administration Aspirin 81 mg 05/13/19 09:00 05/28/19 09:03 Ecotrin PO 81 mg DAILY MIYA Administration Atorvastatin Calcium 80 mg 05/12/19 21:00 05/27/19 20:42 Lipitor PO 80 mg HS MIYA Administration Bumetanide 1 mg 05/24/19 07:30 05/28/19 09:02 Bumex PO 1 mg DAILY-AC MIYA Administration Carvedilol 3.125 mg 05/12/19 21:00 05/28/19 09:04 Coreg PO 3.125 mg BID MIYA Administration Cephalexin 500 mg 05/19/19 21:00 05/28/19 09:02 Keflex PO 500 mg QID MIYA Administration Ezetimibe 10 mg 05/15/19 09:00 05/28/19 09:01 Zetia PO 10 mg DAILY MIYA Administration Famotidine 20 mg 05/09/19 21:00 05/28/19 09:03 Pepcid PO 20 mg BID MIYA Administration Gabapentin 100 mg 05/27/19 09:00 05/28/19 09:02 Neurontin PO 100 mg DAILY MIYA Administration Lisinopril 5 mg 05/14/19 09:00 05/28/19 09:05 Zestril PO Not Given DAILY MIYA Promethazine HCl 25 mg 05/18/19 13:27 05/18/19 13:35 Phenergan PO 25 mg Q6H PRN Administration Nausea Saccharomyces Boulardii 250 mg 05/19/19 09:00 05/28/19 09:03 Florastor PO 250 mg DAILY MIYA Administration Senna/Docusate Sodium 2 tab 05/09/19 15:37 05/24/19 12:30 Senokot S PO 2 tab BID PRN Administration Constipation Sodium Chloride 10 ml 05/09/19 21:00 05/28/19 09:05 Flush - Normal Saline IVF Not Given Q12HR MIYA Sodium Chloride 10 ml 05/09/19 13:24 05/16/19 05:28 Flush - Normal Saline IVF 10 ml PRN PRN Administration Saline Flush Spironolactone 50 mg 05/13/19 21:00 05/28/19 09:05 Aldactone PO Not Given BID MIYA Zolpidem Tartrate 5 mg 05/09/19 15:48 05/27/19 23:46 Ambien PO 5 mg HSPRN PRN Administration Insomnia - Exam General Appearance: NAD, awake alert Eye: PERRL, anicteric sclera ENT: no oropharyngeal lesions, moist mucosa Neck: supple, no JVD Heart: RRR, no murmur Respiratory: no wheezes, no rales Gastrointestinal: soft, non-tender, normal bowel sounds Extremities: no clubbing, 1+ LE edema Neurological: CN's grossly intact, no focal deficits Psychiatric: normal affect, A&O x 3 Hosp A/P (1) Acute on chronic combined systolic (congestive) and diastolic (congestive) heart failure Code(s): I50.43 - ACUTE ON CHRONIC COMBINED SYSTOLIC AND DIASTOLIC HRT FAIL Status: Acute (2) Cellulitis of right leg Code(s): L03.115 - CELLULITIS OF RIGHT LOWER LIMB Status: Acute (3) Morbid obesity with BMI of 50.0-59.9, adult Code(s): E66.01 - MORBID (SEVERE) OBESITY DUE TO EXCESS CALORIES; Z68.43 - BODY MASS INDEX (BMI) 50-59.9, ADULT Status: Chronic (4) Chronic venous stasis dermatitis of both lower extremities Code(s): I87.2 - VENOUS INSUFFICIENCY (CHRONIC) (PERIPHERAL) Status: Chronic (5) Ischemic cardiomyopathy Code(s): I25.5 - ISCHEMIC CARDIOMYOPATHY Status: Chronic (6) Atrial fibrillation Code(s): I48.91 - UNSPECIFIED ATRIAL FIBRILLATION Status: Chronic (7) CAD (coronary artery disease) Code(s): I25.10 - ATHSCL HEART DISEASE OF [place] CORONARY ARTERY W/O ANG PCTRS Status: Chronic Qualifiers: Coronary Disease-Associated Artery/Lesion type: [place] artery [place] vs. transplanted heart: [place] heart Associated angina: without angina Qualified Code(s): I25.10 - Atherosclerotic heart disease of [place] coronary artery without angina pectoris (8) DM type 2 (diabetes mellitus, type 2) Status: Chronic Qualifiers: Diabetes mellitus jail insulin use: without remote computer terminal operator use Plan: diet controlled (9) Dyslipidemia Code(s): E78.5 - HYPERLIPIDEMIA, UNSPECIFIED Status: Chronic (10) HTN (hypertension) Code(s): I10 - ESSENTIAL (PRIMARY) HYPERTENSION Status: Chronic Qualifiers: Hypertension type: essential hypertension Qualified Code(s): I10 - Essential (primary) hypertension - Plan awaiting placement to [facility] had biventricular pacer placed this admission for low ef of 30% meds are optimized on cordarone, eliquis, asp, lipitor, coreg, lisinopril and zetia to mobilize more as tolerated with PT may dc anytime to snf if accepted
[2019-05-28] MEDS: Atorvastatin Calcium 40 MG TAB PO SCH (20:45)
[2019-05-28] MEDS: Acetaminophen/Codeine 30-300mg Tablet PO PRN (22:31)
[2019-05-28] MEDS: Zolpidem Tartrate 5 MG TAB PO PRN (22:32)
[2019-05-29] MEDS: Apixaban 5 MG TAB PO SCH ×2 (08:36→20:30)
[2019-05-29] MEDS: Cephalexin 250 MG CAP PO SCH ×4 (08:36→20:30)
[2019-05-29] MEDS: Carvedilol 3.125 MG TAB PO SCH ×2 (08:36→20:31)
[2019-05-29] MEDS: Amiodarone 200 MG TAB PO SCH (08:37)
[2019-05-29] MEDS: Famotidine 20 MG TAB PO SCH ×2 (08:37→20:30)
[2019-05-29] MEDS: Bumetanide 1 MG TAB PO SCH (08:37)
[2019-05-29] MEDS: Gabapentin 100 MG CAP PO SCH (08:37)
[2019-05-29] MEDS: Lisinopril 5 MG TAB PO SCH (08:37)
[2019-05-29] MEDS: Aspirin 81 mg Enteric Coated Tablet PO SCH (08:37)
[2019-05-29] MEDS: Ezetimibe 10 MG TAB PO SCH (08:37)
[2019-05-29] MEDS: Spironolactone 25 MG TAB PO SCH ×2 (08:37→20:31)
[2019-05-29] MEDS: Saccharomyces boulardii 250 MG CAP PO SCH (08:37)
--- NOTE | 2019-05-29 12:37 | PDOC.HOSPP ---
- Subjective Encounter Date: 05/29/19 Encounter Time: 08:15 Subjective: no sob or palp feels better - Objective Vital Signs & Weight: Vital Signs (12 hours) Temp Pulse Resp BP BP Pulse Ox 05/29/19 12:14 98 F 61 18 120/68 96 05/29/19 08:07 98.1 F 60 18 133/74 95 05/29/19 03:47 98 F 58 L 18 125/68 92 L Weight Admit Weight 444 lb 9.6 oz Weight 430 lb 9 oz I&O: 05/28/19 05/29/19 05/30/19 06:59 06:59 06:59 Intake Total 1600 2280 Output Total 1550 2700 Balance 50 -420 Result Diagrams: 05/27/19 04:48 05/27/19 04:48 Hospitalist ROS - Medication Medications: Active Medications Generic Name Dose Route Start Last Admin Trade Name Freq PRN Reason Stop Dose Admin Acetaminophen/Codeine Phosphate 2 tab 05/19/19 18:00 05/28/19 22:31 Tylenol #3 PO 2 tab Q4H PRN Administration Moderate Pain (4-6) Amiodarone HCl 200 mg 05/13/19 09:00 05/29/19 08:37 Cordarone PO 200 mg DAILY MIYA Administration Apixaban 5 mg 05/24/19 09:00 05/29/19 08:36 Eliquis PO 5 mg Q12HR MIYA Administration Aspirin 81 mg 05/13/19 09:00 05/29/19 08:37 Ecotrin PO 81 mg DAILY MIYA Administration Atorvastatin Calcium 80 mg 05/12/19 21:00 05/28/19 20:45 Lipitor PO 80 mg HS MIYA Administration Bumetanide 1 mg 05/24/19 07:30 05/29/19 08:37 Bumex PO 1 mg DAILY-AC MIYA Administration Carvedilol 3.125 mg 05/12/19 21:00 05/29/19 08:36 Coreg PO 3.125 mg BID MIYA Administration Cephalexin 500 mg 05/19/19 21:00 05/29/19 08:36 Keflex PO 500 mg QID MIYA Administration Ezetimibe 10 mg 05/15/19 09:00 05/29/19 08:37 Zetia PO 10 mg DAILY MIYA Administration Famotidine 20 mg 05/09/19 21:00 05/29/19 08:37 Pepcid PO 20 mg BID MIYA Administration Gabapentin 100 mg 05/27/19 09:00 05/29/19 08:37 Neurontin PO 100 mg DAILY MIYA Administration Lisinopril 5 mg 05/14/19 09:00 05/29/19 08:37 Zestril PO 5 mg DAILY MIYA Administration Promethazine HCl 25 mg 05/18/19 13:27 05/18/19 13:35 Phenergan PO 25 mg Q6H PRN Administration Nausea Saccharomyces Boulardii 250 mg 05/19/19 09:00 05/29/19 08:37 Florastor PO 250 mg DAILY MIYA Administration Senna/Docusate Sodium 2 tab 05/09/19 15:37 05/24/19 12:30 Senokot S PO 2 tab BID PRN Administration Constipation Sodium Chloride 10 ml 05/09/19 21:00 05/29/19 08:38 Flush - Normal Saline IVF 10 ml Q12HR MIYA Administration Sodium Chloride 10 ml 05/09/19 13:24 05/16/19 05:28 Flush - Normal Saline IVF 10 ml PRN PRN Administration Saline Flush Spironolactone 50 mg 05/13/19 21:00 05/29/19 08:37 Aldactone PO Not Given BID MIYA Zolpidem Tartrate 5 mg 05/09/19 15:48 05/28/19 22:32 Ambien PO 5 mg HSPRN PRN Administration Insomnia - Exam General Appearance: NAD, awake alert Eye: PERRL, anicteric sclera ENT: no oropharyngeal lesions, moist mucosa Neck: supple, no JVD Heart: RRR, no murmur Respiratory: no wheezes, no rales Gastrointestinal: soft, non-tender, non-distended, normal bowel sounds Extremities: no cyanosis, 1+ LE edema Neurological: CN's grossly intact, no focal deficits Psychiatric: normal affect, A&O x 3 Hosp A/P (1) Acute on chronic combined systolic (congestive) and diastolic (congestive) heart failure Code(s): I50.43 - ACUTE ON CHRONIC COMBINED SYSTOLIC AND DIASTOLIC HRT FAIL Status: Resolved (2) Cellulitis of right leg Code(s): L03.115 - CELLULITIS OF RIGHT LOWER LIMB Status: Acute (3) Morbid obesity with BMI of 50.0-59.9, adult Code(s): E66.01 - MORBID (SEVERE) OBESITY DUE TO EXCESS CALORIES; Z68.43 - BODY MASS INDEX (BMI) 50-59.9, ADULT Status: Chronic (4) Chronic venous stasis dermatitis of both lower extremities Code(s): I87.2 - VENOUS INSUFFICIENCY (CHRONIC) (PERIPHERAL) Status: Chronic (5) Ischemic cardiomyopathy Code(s): I25.5 - ISCHEMIC CARDIOMYOPATHY Status: Chronic (6) Atrial fibrillation Code(s): I48.91 - UNSPECIFIED ATRIAL FIBRILLATION Status: Chronic (7) CAD (coronary artery disease) Code(s): I25.10 - ATHSCL HEART DISEASE OF [place] CORONARY ARTERY W/O ANG PCTRS Status: Chronic Qualifiers: Coronary Disease-Associated Artery/Lesion type: [place] artery [place] vs. transplanted heart: [place] heart Associated angina: without angina Qualified Code(s): I25.10 - Atherosclerotic heart disease of [place] coronary artery without angina pectoris (8) DM type 2 (diabetes mellitus, type 2) Status: Chronic Qualifiers: Diabetes mellitus marine oil terminal superintendent insulin use: without shelter use (9) Dyslipidemia Code(s): E78.5 - HYPERLIPIDEMIA, UNSPECIFIED Status: Chronic (10) HTN (hypertension) Code(s): I10 - ESSENTIAL (PRIMARY) HYPERTENSION Status: Chronic Qualifiers: Hypertension type: essential hypertension Qualified Code(s): I10 - Essential (primary) hypertension - Plan awaiting placement to [facility], may dc anytime if accepted had biventricular pacer placed this admission for low ef of 30% meds are optimized on cordarone, eliquis, asp, lipitor, coreg, lisinopril and zetia to mobilize more as tolerated with PT
[2019-05-29] MEDS: Atorvastatin Calcium 40 MG TAB PO SCH (20:30)
[2019-05-29] MEDS: Acetaminophen/Codeine 30-300mg Tablet PO PRN (23:05)
[2019-05-29] MEDS: Zolpidem Tartrate 5 MG TAB PO PRN (23:05)
[2019-05-30] MEDS: Saccharomyces boulardii 250 MG CAP PO SCH (09:01)
[2019-05-30] MEDS: Ezetimibe 10 MG TAB PO SCH (09:01)
[2019-05-30] MEDS: Amiodarone 200 MG TAB PO SCH (09:01)
[2019-05-30] MEDS: Gabapentin 100 MG CAP PO SCH (09:01)
[2019-05-30] MEDS: Spironolactone 25 MG TAB PO SCH ×2 (09:01→20:46)
[2019-05-30] MEDS: Apixaban 5 MG TAB PO SCH ×2 (09:01→20:46)
[2019-05-30] MEDS: Bumetanide 1 MG TAB PO SCH (09:01)
[2019-05-30] MEDS: Carvedilol 3.125 MG TAB PO SCH ×2 (09:01→20:45)
[2019-05-30] MEDS: Aspirin 81 mg Enteric Coated Tablet PO SCH (09:01)
[2019-05-30] MEDS: Famotidine 20 MG TAB PO SCH ×2 (09:02→20:45)
[2019-05-30] MEDS: Lisinopril 5 MG TAB PO SCH (09:05)
[2019-05-30] MEDS ORDERED: Benzocaine-Menthol 82.5 ML CAN TOP PRN (12:09)
--- NOTE | 2019-05-30 13:52 | PDOC.HOSPP ---
- Subjective Encounter Date: 05/30/19 Encounter Time: 09:25 Subjective: no sob or palp feels better - Objective Vital Signs & Weight: Vital Signs (12 hours) Temp Pulse Resp BP Pulse Ox 05/30/19 09:05 62 05/30/19 08:00 98.4 F 58 L 20 115/66 93 L Weight Admit Weight 444 lb 9.6 oz Weight 430 lb 9 oz I&O: 05/29/19 05/30/19 05/31/19 06:59 06:59 06:59 Intake Total 2280 840 Output Total 2700 680 Balance -420 160 Result Diagrams: 05/27/19 04:48 05/27/19 04:48 Hospitalist ROS - Medication Medications: Active Medications Generic Name Dose Route Start Last Admin Trade Name Freq PRN Reason Stop Dose Admin Acetaminophen/Codeine Phosphate 1 tab 05/29/19 20:45 05/29/19 23:05 Tylenol #3 PO 1 tab Q4H PRN Administration Moderate Pain (4-6) Amiodarone HCl 200 mg 05/13/19 09:00 05/30/19 09:01 Cordarone PO 200 mg DAILY MIYA Administration Apixaban 5 mg 05/24/19 09:00 05/30/19 09:01 Eliquis PO 5 mg Q12HR MIYA Administration Aspirin 81 mg 05/13/19 09:00 05/30/19 09:01 Ecotrin PO 81 mg DAILY MIYA Administration Atorvastatin Calcium 80 mg 05/12/19 21:00 05/29/19 20:30 Lipitor PO 80 mg HS MIYA Administration Bumetanide 1 mg 05/24/19 07:30 05/30/19 09:01 Bumex PO 1 mg DAILY-AC MIYA Administration Carvedilol 3.125 mg 05/12/19 21:00 05/30/19 09:01 Coreg PO 3.125 mg BID MIYA Administration Ezetimibe 10 mg 05/15/19 09:00 05/30/19 09:01 Zetia PO 10 mg DAILY MIYA Administration Famotidine 20 mg 05/09/19 21:00 05/30/19 09:02 Pepcid PO Not Given BID MIYA Gabapentin 100 mg 05/27/19 09:00 05/30/19 09:01 Neurontin PO 100 mg DAILY MIYA Administration Lisinopril 5 mg 05/14/19 09:00 05/30/19 09:05 Zestril PO 5 mg DAILY MIYA Administration Promethazine HCl 25 mg 05/18/19 13:27 05/18/19 13:35 Phenergan PO 25 mg Q6H PRN Administration Nausea Saccharomyces Boulardii 250 mg 05/19/19 09:00 05/30/19 09:01 Florastor PO 250 mg DAILY MIYA Administration Senna/Docusate Sodium 2 tab 05/09/19 15:37 05/24/19 12:30 Senokot S PO 2 tab BID PRN Administration Constipation Sodium Chloride 10 ml 05/09/19 21:00 05/30/19 09:02 Flush - Normal Saline IVF Not Given Q12HR MIYA Sodium Chloride 10 ml 05/09/19 13:24 05/16/19 05:28 Flush - Normal Saline IVF 10 ml PRN PRN Administration Saline Flush Spironolactone 50 mg 05/13/19 21:00 05/30/19 09:01 Aldactone PO 50 mg BID MIYA Administration Zolpidem Tartrate 5 mg 05/09/19 15:48 05/29/19 23:05 Ambien PO 5 mg HSPRN PRN Administration Insomnia - Exam General Appearance: NAD, awake alert Eye: PERRL, anicteric sclera ENT: no oropharyngeal lesions, moist mucosa Neck: supple, no JVD Heart: RRR, no murmur Respiratory: no wheezes, no rales Gastrointestinal: soft, non-tender, normal bowel sounds Extremities: no cyanosis Extremeties - other findings: right leg in dressing Neurological: CN's grossly intact, no focal deficits Psychiatric: normal affect, A&O x 3 Hosp A/P (1) Acute on chronic combined systolic (congestive) and diastolic (congestive) heart failure Code(s): I50.43 - ACUTE ON CHRONIC COMBINED SYSTOLIC AND DIASTOLIC HRT FAIL Status: Resolved (2) Cellulitis of right leg Code(s): L03.115 - CELLULITIS OF RIGHT LOWER LIMB Status: Acute (3) Morbid obesity with BMI of 50.0-59.9, adult Code(s): E66.01 - MORBID (SEVERE) OBESITY DUE TO EXCESS CALORIES; Z68.43 - BODY MASS INDEX (BMI) 50-59.9, ADULT Status: Chronic (4) Chronic venous stasis dermatitis of both lower extremities Code(s): I87.2 - VENOUS INSUFFICIENCY (CHRONIC) (PERIPHERAL) Status: Chronic (5) Ischemic cardiomyopathy Code(s): I25.5 - ISCHEMIC CARDIOMYOPATHY Status: Chronic (6) Atrial fibrillation Code(s): I48.91 - UNSPECIFIED ATRIAL FIBRILLATION Status: Chronic (7) CAD (coronary artery disease) Code(s): I25.10 - ATHSCL HEART DISEASE OF [place] CORONARY ARTERY W/O ANG PCTRS Status: Chronic Qualifiers: Coronary Disease-Associated Artery/Lesion type: [place] artery [place] vs. transplanted heart: [place] heart Associated angina: without angina Qualified Code(s): I25.10 - Atherosclerotic heart disease of [place] coronary artery without angina pectoris (8) DM type 2 (diabetes mellitus, type 2) Status: Chronic Qualifiers: Diabetes mellitus watermaster insulin use: without [facility] use (9) Dyslipidemia Code(s): E78.5 - HYPERLIPIDEMIA, UNSPECIFIED Status: Chronic (10) HTN (hypertension) Code(s): I10 - ESSENTIAL (PRIMARY) HYPERTENSION Status: Chronic Qualifiers: Hypertension type: essential hypertension Qualified Code(s): I10 - Essential (primary) hypertension - Plan DC pt to [facility] had biventricular pacer placed this admission for low ef of 30% meds are optimized on cordarone, eliquis, asp, lipitor, coreg, lisinopril and zetia to mobilize more as tolerated with PT
--- NOTE | 2019-05-30 14:45 | DIS ---
DATE OF ADMISSION: 05/09/2019 DATE OF DISCHARGE: 05/30/2019 DISCHARGE DISPOSITION: [facility]. PRIMARY DISCHARGE DIAGNOSES: [id number] congestive heart failure exacerbation with systolic and diastolic dysfunction, right leg cellulitis, morbid obesity, chronic venostasis dermatitis of both lower extremities, ischemic cardiomyopathy , atrial fibrillation which is rate controlled, coronary artery disease, diabetes mellitus type 2, hypertension, dyslipidemia, status post biventricular pacer. PROCEDURES DONE DURING HOSPITALIZATION: Chest x-ray done on the day of admission showed pulmonary vascular congestion with cardiomegaly. Echo with 2D Doppler done on 05/10/2019 was technically difficult with poor endocardial definition. EF appeared to be moderately depressed. There was moderate tricuspid regurgitation. Transesophageal echo done on 05/15/2019 showed a dilated left ventricle with reduced ejection fraction estimated at about 30%. There was inferior wall hypokinesis, moderate mitral regurgitation, moderate tricuspid regurgitation was seen. Lower extremity arterial Doppler done on 05/19/2019 showed suspicion for monophasic waveform at the level of left dorsalis pedis artery, otherwise biphasic waveform was seen. Please note, the patient had dysrhythmia and arterial Doppler waveforms were not accurate during this study. The patient had his pacemaker upgraded to biventricular ICD on 05/19/[address] Kothari. Blood cultures x2, no growth. Urine culture, no growth. H and H 11 and 35, platelet count 113, MCV is 91, BUN 26, creatinine 1.0 on the 27 of May. Albumin 3.3. Total cholesterol 119, triglycerides 55, LDL 76, HDL 32, TSH 2.89. Troponin x3 negative. BNP 796. INPATIENT CONSULT: Dr. Kothari for electrophysiology, Dr. Mathew for Cardiology. DISCHARGE MEDICATIONS: 1. Keflex 500 mg p.o. q.i.d. for another 1 week. 2. Bumex 1 mg p.o. daily. 3. Zetia 10 mg daily. 4. Pepcid 20 mg twice daily. 5. Neurontin 100 mg p.o. daily. 6. Lisinopril 5 mg daily. 7. Spironolactone 50 mg twice daily. 8. Eliquis 5 mg twice daily. 9. Coreg 3.125 mg twice daily. 10. Lipitor 80 mg p.o. daily. 11. Aspirin 81 mg p.o. daily. 12. Cordarone 200 mg p.o. daily. ALLERGIES: NO KNOWN DRUG ALLERGIES. DISCHARGE PLAN: The patient to follow up with Dr. Kothari as advised, Dr. Alvarez his forest fire equipment operator as advised and primary care physician in 1 week BRIEF COURSE DURING HOSPITALIZATION: The patient initially was hospitalized on the with complaints of worsening lower extremity pain and swelling. He has known history of cardiomyopathy with ejection fraction of around 35% on his last echo prior to arrival here. He has known history of chronic venous insufficiency as well. He was essentially admitted for [id number] congestive heart failure exacerbation with systolic and diastolic dysfunction, right leg ulcer with cellulitis, chronic stasis dermatitis due to venous stasis on both lower extremities. He has had consultation with Dr. Alvarez for Cardiology, Dr. Kothari for electrophysiology. The patient had atrial fibrillation as well, which was rate controlled. He had upgradation of his pacemaker to biventricular AICD. He has had gentle diuresis done all through his stay. Wound Care was consulted for the right leg ulcer. He has severe deconditioning and is being discharged to [facility] for further recuperation prior to going home if his insurance approves. The patient is morbidly obese with BMI of around 52. He was strongly counseled with regard to life- threatening obesity with lifestyle changes and dietary modifications as well. His medications were optimized during his stay here. He is otherwise hemodynamically stable and will be shortly discharged. A total of 35 minutes was spent on discharge plan. Please see a [id number] documentation for the day of discharge on [place]. Job ID: [id number] [facility]
[2019-05-30] MEDS: Cephalexin 250 MG CAP PO SCH ×2 (16:34→20:45)
[2019-05-30] MEDS ORDERED: Cephalexin 250 MG CAP PO SCH (17:00)
[2019-05-30] MEDS: Atorvastatin Calcium 40 MG TAB PO SCH (20:45)
[2019-05-30] MEDS: Acetaminophen/Codeine 30-300mg Tablet PO PRN (22:06)
[2019-05-30] MEDS: Zolpidem Tartrate 5 MG TAB PO PRN (22:07)
[2019-05-31] MEDS: Cephalexin 250 MG CAP PO SCH ×4 (08:00→20:26)
[2019-05-31] MEDS: Bumetanide 1 MG TAB PO SCH (08:00)
[2019-05-31] MEDS: Saccharomyces boulardii 250 MG CAP PO SCH (08:01)
[2019-05-31] MEDS: Famotidine 20 MG TAB PO SCH ×2 (08:02→20:27)
[2019-05-31] MEDS: Gabapentin 100 MG CAP PO SCH (08:02)
[2019-05-31] MEDS: Aspirin 81 mg Enteric Coated Tablet PO SCH (08:02)
[2019-05-31] MEDS: Carvedilol 3.125 MG TAB PO SCH ×2 (08:02→20:29)
[2019-05-31] MEDS: Amiodarone 200 MG TAB PO SCH (08:02)
[2019-05-31] MEDS: Ezetimibe 10 MG TAB PO SCH (08:02)
[2019-05-31] MEDS: Apixaban 5 MG TAB PO SCH ×2 (08:02→20:27)
[2019-05-31] MEDS: Lisinopril 5 MG TAB PO SCH (08:03)
[2019-05-31] MEDS: Spironolactone 25 MG TAB PO SCH ×2 (08:03→20:27)
--- NOTE | 2019-05-31 13:16 | PDOC.HOSPP ---
- Subjective Encounter Date: 05/31/19 Encounter Time: 07:20 Subjective: no new compliants is amb to bathroom and back - Objective Vital Signs & Weight: Vital Signs (12 hours) Temp Pulse Resp BP Pulse Ox 05/31/19 08:03 73 05/31/19 08:00 97.7 F 59 L 20 95/66 95 05/31/19 03:58 97.5 F L 73 18 92/52 L 93 L Weight Admit Weight 444 lb 9.6 oz Weight 430 lb 9 oz I&O: 05/30/19 05/31/19 06/01/19 06:59 06:59 06:59 Intake Total 840 400 300 Output Total 680 1750 Balance 160 -1350 300 Result Diagrams: 05/27/19 04:48 05/27/19 04:48 Hospitalist ROS - Medication Medications: Active Medications Generic Name Dose Route Start Last Admin Trade Name Freq PRN Reason Stop Dose Admin Acetaminophen/Codeine Phosphate 1 tab 05/29/19 20:45 05/30/19 22:06 Tylenol #3 PO 1 tab Q4H PRN Administration Moderate Pain (4-6) Amiodarone HCl 200 mg 05/13/19 09:00 05/31/19 08:02 Cordarone PO 200 mg DAILY MIYA Administration Apixaban 5 mg 05/24/19 09:00 05/31/19 08:02 Eliquis PO 5 mg Q12HR MIYA Administration Aspirin 81 mg 05/13/19 09:00 05/31/19 08:02 Ecotrin PO 81 mg DAILY MIYA Administration Atorvastatin Calcium 80 mg 05/12/19 21:00 05/30/19 20:45 Lipitor PO 80 mg HS MIYA Administration Benzocaine/Menthol 0 ml 05/30/19 12:09 05/30/19 12:30 Dermoplast TOP 1 spr PRN PRN Administration Topical Irritations Bumetanide 1 mg 05/24/19 07:30 05/31/19 08:00 Bumex PO 1 mg DAILY-AC MIYA Administration Carvedilol 3.125 mg 05/12/19 21:00 05/31/19 08:02 Coreg PO 3.125 mg BID MIYA Administration Cephalexin 500 mg 05/30/19 17:00 05/31/19 08:00 Keflex PO 500 mg QID MIYA Administration Ezetimibe 10 mg 05/15/19 09:00 05/31/19 08:02 Zetia PO 10 mg DAILY MIYA Administration Famotidine 20 mg 05/09/19 21:00 05/31/19 08:02 Pepcid PO 20 mg BID MIYA Administration Gabapentin 100 mg 05/27/19 09:00 05/31/19 08:02 Neurontin PO 100 mg DAILY MIYA Administration Lisinopril 5 mg 05/14/19 09:00 05/31/19 08:03 Zestril PO Not Given DAILY MIYA Promethazine HCl 25 mg 05/18/19 13:27 05/18/19 13:35 Phenergan PO 25 mg Q6H PRN Administration Nausea Saccharomyces Boulardii 250 mg 05/19/19 09:00 05/31/19 08:01 Florastor PO 250 mg DAILY MIYA Administration Senna/Docusate Sodium 2 tab 05/09/19 15:37 05/24/19 12:30 Senokot S PO 2 tab BID PRN Administration Constipation Sodium Chloride 10 ml 05/09/19 21:00 05/31/19 08:03 Flush - Normal Saline IVF Not Given Q12HR MIYA Sodium Chloride 10 ml 05/09/19 13:24 05/16/19 05:28 Flush - Normal Saline IVF 10 ml PRN PRN Administration Saline Flush Spironolactone 50 mg 05/13/19 21:00 05/31/19 08:03 Aldactone PO Not Given BID MIYA Zolpidem Tartrate 5 mg 05/09/19 15:48 05/30/19 22:07 Ambien PO 5 mg HSPRN PRN Administration Insomnia - Exam General Appearance: NAD, awake alert Eye: PERRL, anicteric sclera ENT: no oropharyngeal lesions, moist mucosa Neck: supple, no JVD Heart: RRR, no murmur Respiratory: no wheezes, no rales Gastrointestinal: soft, non-tender, normal bowel sounds Extremities: no cyanosis, 1+ LE edema Neurological: CN's grossly intact, no focal deficits Psychiatric: normal affect, A&O x 3 Hosp A/P (1) Acute on chronic combined systolic (congestive) and diastolic (congestive) heart failure Code(s): I50.43 - ACUTE ON CHRONIC COMBINED SYSTOLIC AND DIASTOLIC HRT FAIL Status: Resolved (2) Cellulitis of right leg Code(s): L03.115 - CELLULITIS OF RIGHT LOWER LIMB Status: Acute (3) Morbid obesity with BMI of 50.0-59.9, adult Code(s): E66.01 - MORBID (SEVERE) OBESITY DUE TO EXCESS CALORIES; Z68.43 - BODY MASS INDEX (BMI) 50-59.9, ADULT Status: Chronic (4) Chronic venous stasis dermatitis of both lower extremities Code(s): I87.2 - VENOUS INSUFFICIENCY (CHRONIC) (PERIPHERAL) Status: Chronic (5) Ischemic cardiomyopathy Code(s): I25.5 - ISCHEMIC CARDIOMYOPATHY Status: Chronic (6) Atrial fibrillation Code(s): I48.91 - UNSPECIFIED ATRIAL FIBRILLATION Status: Chronic (7) CAD (coronary artery disease) Code(s): I25.10 - ATHSCL HEART DISEASE OF [place] CORONARY ARTERY W/O ANG PCTRS Status: Chronic Qualifiers: Coronary Disease-Associated Artery/Lesion type: [place] artery [place] vs. transplanted heart: [place] heart Associated angina: without angina Qualified Code(s): I25.10 - Atherosclerotic heart disease of [place] coronary artery without angina pectoris (8) DM type 2 (diabetes mellitus, type 2) Status: Chronic Qualifiers: Diabetes mellitus termite helper insulin use: without termite helper use (9) Dyslipidemia Code(s): E78.5 - HYPERLIPIDEMIA, UNSPECIFIED Status: Chronic (10) HTN (hypertension) Code(s): I10 - ESSENTIAL (PRIMARY) HYPERTENSION Status: Chronic Qualifiers: Hypertension type: essential hypertension Qualified Code(s): I10 - Essential (primary) hypertension - Plan DC plan to [facility] once approved, his dc plan was held yesterday due to approval had biventricular pacer placed this admission for low ef of 30% meds are optimized on cordarone, eliquis, asp, lipitor, coreg, lisinopril and zetia to mobilize more as tolerated with PT
[2019-05-31] MEDS: Atorvastatin Calcium 40 MG TAB PO SCH (20:27)
[2019-05-31] MEDS: Acetaminophen/Codeine 30-300mg Tablet PO PRN (21:37)
[2019-05-31] MEDS: Zolpidem Tartrate 5 MG TAB PO PRN (21:37)
[2019-06-01] MEDS: Bumetanide 1 MG TAB PO SCH (08:16)
[2019-06-01] MEDS: Amiodarone 200 MG TAB PO SCH (08:16)
[2019-06-01] MEDS: Apixaban 5 MG TAB PO SCH ×2 (08:17→20:12)
[2019-06-01] MEDS: Aspirin 81 mg Enteric Coated Tablet PO SCH (08:17)
[2019-06-01] MEDS: Saccharomyces boulardii 250 MG CAP PO SCH (08:17)
[2019-06-01] MEDS: Spironolactone 25 MG TAB PO SCH ×2 (08:18→20:13)
[2019-06-01] MEDS: Ezetimibe 10 MG TAB PO SCH (08:18)
[2019-06-01] MEDS: Gabapentin 100 MG CAP PO SCH (08:18)
[2019-06-01] MEDS: Carvedilol 3.125 MG TAB PO SCH ×2 (08:18→20:13)
[2019-06-01] MEDS: Cephalexin 250 MG CAP PO SCH ×4 (08:18→20:13)
[2019-06-01] MEDS: Famotidine 20 MG TAB PO SCH ×2 (08:18→20:13)
[2019-06-01] MEDS: Lisinopril 5 MG TAB PO SCH (08:21)
--- NOTE | 2019-06-01 13:14 | PDOC.HOSPP ---
- Subjective Encounter Date: 06/01/19 Encounter Time: 12:20 Subjective: says he will ambulate with PT with walker from today no sob or pain - Objective Vital Signs & Weight: Vital Signs (12 hours) Temp Pulse Resp BP Pulse Ox 06/01/19 08:21 62 06/01/19 08:00 97.6 F 61 18 100/69 95 Weight Admit Weight 444 lb 9.6 oz Weight 430 lb 9 oz I&O: 05/31/19 06/01/19 06/02/19 06:59 06:59 06:59 Intake Total 400 2500 Output Total 1750 875 Balance -1350 1625 Result Diagrams: 05/27/19 04:48 05/27/19 04:48 Hospitalist ROS - Medication Medications: Active Medications Generic Name Dose Route Start Last Admin Trade Name Freq PRN Reason Stop Dose Admin Acetaminophen/Codeine Phosphate 1 tab 05/29/19 20:45 05/31/19 21:37 Tylenol #3 PO 1 tab Q4H PRN Administration Moderate Pain (4-6) Amiodarone HCl 200 mg 05/13/19 09:00 06/01/19 08:16 Cordarone PO 200 mg DAILY MIYA Administration Apixaban 5 mg 05/24/19 09:00 06/01/19 08:17 Eliquis PO 5 mg Q12HR MIYA Administration Aspirin 81 mg 05/13/19 09:00 06/01/19 08:17 Ecotrin PO 81 mg DAILY MIYA Administration Atorvastatin Calcium 80 mg 05/12/19 21:00 05/31/19 20:27 Lipitor PO 80 mg HS MIYA Administration Benzocaine/Menthol 0 ml 05/30/19 12:09 05/30/19 12:30 Dermoplast TOP 1 spr PRN PRN Administration Topical Irritations Bumetanide 1 mg 05/24/19 07:30 06/01/19 08:16 Bumex PO 1 mg DAILY-AC MIYA Administration Carvedilol 3.125 mg 05/12/19 21:00 06/01/19 08:18 Coreg PO 3.125 mg BID MIYA Administration Cephalexin 500 mg 05/30/19 17:00 06/01/19 08:18 Keflex PO 500 mg QID MIYA Administration Ezetimibe 10 mg 05/15/19 09:00 06/01/19 08:18 Zetia PO 10 mg DAILY MIYA Administration Famotidine 20 mg 05/09/19 21:00 06/01/19 08:18 Pepcid PO 20 mg BID MIYA Administration Gabapentin 100 mg 05/27/19 09:00 06/01/19 08:18 Neurontin PO 100 mg DAILY MIYA Administration Lisinopril 5 mg 05/14/19 09:00 06/01/19 08:21 Zestril PO Not Given DAILY MIYA Promethazine HCl 25 mg 05/18/19 13:27 05/18/19 13:35 Phenergan PO 25 mg Q6H PRN Administration Nausea Saccharomyces Boulardii 250 mg 05/19/19 09:00 06/01/19 08:17 Florastor PO 250 mg DAILY MIYA Administration Senna/Docusate Sodium 2 tab 05/09/19 15:37 05/24/19 12:30 Senokot S PO 2 tab BID PRN Administration Constipation Sodium Chloride 10 ml 05/09/19 21:00 06/01/19 08:20 Flush - Normal Saline IVF Not Given Q12HR MIYA Sodium Chloride 10 ml 05/09/19 13:24 05/16/19 05:28 Flush - Normal Saline IVF 10 ml PRN PRN Administration Saline Flush Spironolactone 50 mg 05/13/19 21:00 06/01/19 08:18 Aldactone PO Not Given BID [facility] Zolpidem Tartrate 5 mg 05/09/19 15:48 05/31/19 21:37 Ambien PO 5 mg HSPRN PRN Administration Insomnia - Exam General Appearance: NAD, awake alert Eye: PERRL, anicteric sclera ENT: no oropharyngeal lesions, moist mucosa Neck: supple, no JVD Heart: RRR, no murmur Respiratory: no wheezes, no rales Gastrointestinal: soft, non-tender, non-distended, normal bowel sounds Extremities: no cyanosis, 1+ LE edema Neurological: CN's grossly intact, no focal deficits Psychiatric: normal affect, A&O x 3 Hosp A/P (1) Acute on chronic combined systolic (congestive) and diastolic (congestive) heart failure Code(s): I50.43 - ACUTE ON CHRONIC COMBINED SYSTOLIC AND DIASTOLIC HRT FAIL Status: Resolved (2) Cellulitis of right leg Code(s): L03.115 - CELLULITIS OF RIGHT LOWER LIMB Status: Acute (3) Morbid obesity with BMI of 50.0-59.9, adult Code(s): E66.01 - MORBID (SEVERE) OBESITY DUE TO EXCESS CALORIES; Z68.43 - BODY MASS INDEX (BMI) 50-59.9, ADULT Status: Chronic (4) Chronic venous stasis dermatitis of both lower extremities Code(s): I87.2 - VENOUS INSUFFICIENCY (CHRONIC) (PERIPHERAL) Status: Chronic (5) Ischemic cardiomyopathy Code(s): I25.5 - ISCHEMIC CARDIOMYOPATHY Status: Chronic (6) Atrial fibrillation Code(s): I48.91 - UNSPECIFIED ATRIAL FIBRILLATION Status: Chronic (7) CAD (coronary artery disease) Code(s): I25.10 - ATHSCL HEART DISEASE OF [place] CORONARY ARTERY W/O ANG PCTRS Status: Chronic Qualifiers: Coronary Disease-Associated Artery/Lesion type: [place] artery [place] vs. transplanted heart: [place] heart Associated angina: without angina Qualified Code(s): I25.10 - Atherosclerotic heart disease of [place] coronary artery without angina pectoris (8) DM type 2 (diabetes mellitus, type 2) Status: Chronic Qualifiers: Diabetes mellitus terminal make up operator insulin use: without terminal make up operator use (9) Dyslipidemia Code(s): E78.5 - HYPERLIPIDEMIA, UNSPECIFIED Status: Chronic (10) HTN (hypertension) Code(s): I10 - ESSENTIAL (PRIMARY) HYPERTENSION Status: Chronic Qualifiers: Hypertension type: essential hypertension Qualified Code(s): I10 - Essential (primary) hypertension - [facility], his dc plan was held due to approval had biventricular pacer placed this admission for low ef of 30% meds are optimized on cordarone, eliquis, asp, lipitor, coreg, lisinopril and zetia to mobilize more as tolerated with PT hemostable
[2019-06-01] MEDS: Atorvastatin Calcium 40 MG TAB PO SCH (20:12)
[2019-06-01] MEDS: Acetaminophen/Codeine 30-300mg Tablet PO PRN (23:37)
[2019-06-02] MEDS: Spironolactone 25 MG TAB PO SCH ×2 (07:43→20:30)
[2019-06-02] MEDS: Famotidine 20 MG TAB PO SCH ×2 (08:53→20:26)
[2019-06-02] MEDS: Aspirin 81 mg Enteric Coated Tablet PO SCH (08:53)
[2019-06-02] MEDS: Cephalexin 250 MG CAP PO SCH ×4 (08:54→20:26)
[2019-06-02] MEDS: Gabapentin 100 MG CAP PO SCH (08:54)
[2019-06-02] MEDS: Ezetimibe 10 MG TAB PO SCH (08:55)
[2019-06-02] MEDS: Amiodarone 200 MG TAB PO SCH (08:55)
[2019-06-02] MEDS: Lisinopril 5 MG TAB PO SCH ×2 (08:55→10:24)
[2019-06-02] MEDS: Apixaban 5 MG TAB PO SCH ×2 (08:55→20:26)
[2019-06-02] MEDS: Acetaminophen/Codeine 30-300mg Tablet PO PRN ×2 (08:56→21:55)
[2019-06-02] MEDS: Saccharomyces boulardii 250 MG CAP PO SCH (08:56)
[2019-06-02] MEDS: Bumetanide 1 MG TAB PO SCH (08:57)
[2019-06-02] MEDS: Carvedilol 3.125 MG TAB PO SCH ×2 (09:53→20:29)
--- NOTE | 2019-06-02 12:24 | PDOC.HOSPP ---
- Subjective Encounter Date: 06/02/19 Encounter Time: 10:45 Subjective: is awaiting PT to amb him with RW mobilizes in room per patient no pain - Objective Vital Signs & Weight: Vital Signs (12 hours) Temp Pulse Resp BP Pulse Ox 06/02/19 10:24 56 L 06/02/19 07:34 97.6 F 56 L 20 97/67 95 06/02/19 04:00 97.6 F 58 L 18 101/59 L Weight Admit Weight 444 lb 9.6 oz Weight 430 lb 9 oz I&O: 06/01/19 06/02/19 06/03/19 06:59 06:59 06:59 Intake Total 2500 1650 Output Total 875 2250 Balance 1625 -600 Result Diagrams: 05/27/19 04:48 05/27/19 04:48 Hospitalist ROS - Medication Medications: Active Medications Generic Name Dose Route Start Last Admin Trade Name Freq PRN Reason Stop Dose Admin Acetaminophen/Codeine Phosphate 1 tab 05/29/19 20:45 06/02/19 08:56 Tylenol #3 PO 1 tab Q4H PRN Administration Moderate Pain (4-6) Amiodarone HCl 200 mg 05/13/19 09:00 06/02/19 08:55 Cordarone PO 200 mg DAILY MIYA Administration Apixaban 5 mg 05/24/19 09:00 06/02/19 08:55 Eliquis PO 5 mg Q12HR MIYA Administration Aspirin 81 mg 05/13/19 09:00 06/02/19 08:53 Ecotrin PO 81 mg DAILY MIYA Administration Atorvastatin Calcium 80 mg 05/12/19 21:00 06/01/19 20:12 Lipitor PO 80 mg HS MIYA Administration Benzocaine/Menthol 0 ml 05/30/19 12:09 05/30/19 12:30 Dermoplast TOP 1 spr PRN PRN Administration Topical Irritations Bumetanide 1 mg 05/24/19 07:30 06/02/19 08:57 Bumex PO 1 mg DAILY-AC MIYA Administration Carvedilol 3.125 mg 05/12/19 21:00 06/02/19 09:53 Coreg PO Not Given BID MIYA Cephalexin 500 mg 05/30/19 17:00 06/02/19 11:56 Keflex PO 500 mg QID MIYA Administration Ezetimibe 10 mg 05/15/19 09:00 06/02/19 08:55 Zetia PO 10 mg DAILY MIYA Administration Famotidine 20 mg 05/09/19 21:00 06/02/19 08:53 Pepcid PO 20 mg BID MIYA Administration Gabapentin 100 mg 05/27/19 09:00 06/02/19 08:54 Neurontin PO 100 mg DAILY MIYA Administration Lisinopril 5 mg 05/14/19 09:00 06/02/19 10:24 Zestril PO Not Given DAILY MIYA Promethazine HCl 25 mg 05/18/19 13:27 05/18/19 13:35 Phenergan PO 25 mg Q6H PRN Administration Nausea Saccharomyces Boulardii 250 mg 05/19/19 09:00 06/02/19 08:56 Florastor PO 250 mg DAILY MIYA Administration Senna/Docusate Sodium 2 tab 05/09/19 15:37 05/24/19 12:30 Senokot S PO 2 tab BID PRN Administration Constipation Sodium Chloride 10 ml 05/09/19 21:00 06/02/19 07:44 Flush - Normal Saline IVF Not Given Q12HR MIYA Sodium Chloride 10 ml 05/09/19 13:24 05/16/19 05:28 Flush - Normal Saline IVF 10 ml PRN PRN Administration Saline Flush Spironolactone 50 mg 05/13/19 21:00 06/02/19 07:43 Aldactone PO Not Given BID MIYA Zolpidem Tartrate 5 mg 05/09/19 15:48 05/31/19 21:37 Ambien PO 5 mg HSPRN PRN Administration Insomnia - Exam General Appearance: NAD, awake alert Eye: PERRL, anicteric sclera ENT: no oropharyngeal lesions, moist mucosa Neck: supple, no JVD Heart: RRR, no murmur Respiratory: no wheezes, no rales Gastrointestinal: soft, non-tender, non-distended, normal bowel sounds Extremities: no cyanosis, no clubbing Neurological: CN's grossly intact, no focal deficits Psychiatric: normal affect, A&O x 3 Hosp A/P (1) Acute on chronic combined systolic (congestive) and diastolic (congestive) heart failure Code(s): I50.43 - ACUTE ON CHRONIC COMBINED SYSTOLIC AND DIASTOLIC HRT FAIL Status: Resolved (2) Cellulitis of right leg Code(s): L03.115 - CELLULITIS OF RIGHT LOWER LIMB Status: Acute (3) Morbid obesity with BMI of 50.0-59.9, adult Code(s): E66.01 - MORBID (SEVERE) OBESITY DUE TO EXCESS CALORIES; Z68.43 - BODY MASS INDEX (BMI) 50-59.9, ADULT Status: Chronic (4) Chronic venous stasis dermatitis of both lower extremities Code(s): I87.2 - VENOUS INSUFFICIENCY (CHRONIC) (PERIPHERAL) Status: Chronic (5) Ischemic cardiomyopathy Code(s): I25.5 - ISCHEMIC CARDIOMYOPATHY Status: Chronic (6) Atrial fibrillation Code(s): I48.91 - UNSPECIFIED ATRIAL FIBRILLATION Status: Chronic (7) CAD (coronary artery disease) Code(s): I25.10 - ATHSCL HEART DISEASE OF [place] CORONARY ARTERY W/O ANG PCTRS Status: Chronic Qualifiers: Coronary Disease-Associated Artery/Lesion type: [place] artery [place] vs. transplanted heart: [place] heart Associated angina: without angina Qualified Code(s): I25.10 - Atherosclerotic heart disease of [place] coronary artery without angina pectoris (8) DM type 2 (diabetes mellitus, type 2) Status: Chronic Qualifiers: Diabetes mellitus intermediate designer insulin use: without intermediate designer use (9) Dyslipidemia Code(s): E78.5 - HYPERLIPIDEMIA, UNSPECIFIED Status: Chronic (10) HTN (hypertension) Code(s): I10 - ESSENTIAL (PRIMARY) HYPERTENSION Status: Chronic Qualifiers: Hypertension type: essential hypertension Qualified Code(s): I10 - Essential (primary) hypertension - Plan DC plan to [facility] once approved, his dc plan was held due to approval had biventricular pacer placed this admission for low ef of 30% meds are optimized on cordarone, eliquis, asp, lipitor, coreg, lisinopril and zetia to mobilize more as tolerated with PT hemostable May dc anytime if approved to snf
--- NOTE | 2019-06-02 17:40 | PQF ---
NERY RAMIREZ, AZALEA HO MD [id number] CLINICAL DOCUMENTATION IMPROVEMENT CLARIFICATION FORM: ICD-10 Updated PLEASE DO AN ADDENDUM TO THE PROGRESS NOTE WITH ANY DOCUMENTATION UPDATES OR ADDITIONS AND CARRY THROUGH TO DC SUMMARY. THANK YOU. DATE: 06/02/2019 ATTN:DR. Ayla SIM Please exercise your independent, professional judgment in responding to the clarification form. Clinical indicators are provided on the bottom of this form for your review. Please check appropriate box(s): [ ] Hyponatremia please specify etiology, if known [ x ] Hyponatremia due to SIADH (Syndrome of Inappropriate Secretion of Antidiuretic Hormone) [ ] Other diagnosis [ ] Unable to determine In addition, please specify: Present on Admission (POA): [ x] Yes [ ] No [ ] Unable to determine CLINICAL INDICATORS - SIGNS / SYMPTOMS / LABS SODIUM 05/11 133 05/19 133 05/20 134 05/22 133 05/24 133 05/27 134 RISK: HX HTN, DM (H&P / OBI )05/09 TREATMENTS: [facility] LABS( 05/09-05/27) THANK YOU! MAURIZIO (This form is maintained as a part of the permanent medical record) 2014 [email or web address] All Rights Reserved [email or web address] [phone] MTDD
[2019-06-02] MEDS: Atorvastatin Calcium 40 MG TAB PO SCH (20:26)
[2019-06-02] MEDS: Zolpidem Tartrate 5 MG TAB PO PRN (21:55)
[2019-06-03] MEDS: Apixaban 5 MG TAB PO SCH ×2 (09:28→20:13)
[2019-06-03] MEDS: Carvedilol 3.125 MG TAB PO SCH ×2 (09:28→20:26)
[2019-06-03] MEDS: Saccharomyces boulardii 250 MG CAP PO SCH (09:28)
[2019-06-03] MEDS: Bumetanide 1 MG TAB PO SCH (09:28)
[2019-06-03] MEDS: Aspirin 81 mg Enteric Coated Tablet PO SCH (09:28)
[2019-06-03] MEDS: Cephalexin 250 MG CAP PO SCH ×4 (09:28→20:13)
[2019-06-03] MEDS: Famotidine 20 MG TAB PO SCH ×2 (09:29→20:14)
[2019-06-03] MEDS: Ezetimibe 10 MG TAB PO SCH (09:29)
[2019-06-03] MEDS: Gabapentin 100 MG CAP PO SCH (09:29)
[2019-06-03] MEDS: Amiodarone 200 MG TAB PO SCH (09:29)
[2019-06-03] MEDS: Spironolactone 25 MG TAB PO SCH ×2 (09:30→20:28)
[2019-06-03] MEDS: Lisinopril 5 MG TAB PO SCH (10:05)
--- NOTE | 2019-06-03 17:21 | PDOC.HOSPP ---
- Subjective Encounter Date: 06/03/19 Encounter Time: 10:00 Subjective: Pt seen for followup re: chronic [id number] heart failure. says he feels better. - Objective Vital Signs & Weight: Vital Signs (12 hours) Temp Pulse Resp BP BP Pulse Ox 06/03/19 10:05 60 105/69 06/03/19 08:00 97.3 F L 60 20 96/53 L 93 L Weight Admit Weight 444 lb 9.6 oz Weight 430 lb 9 oz I&O: 06/02/19 06/03/19 06/04/19 06:59 06:59 06:59 Intake Total 1650 900 Output Total 2250 1350 Balance -600 -450 Result Diagrams: 05/27/19 04:48 05/27/19 04:48 Hospitalist ROS - Review of Systems Cardiovascular: denies: chest pain, palpitations, orthopnea, paroxysmal noc. dyspnea, edema, light headedness Gastrointestinal: denies: nausea, vomitting, abdominal pain, diarrhea, constipation, melena, hematochezia - Medication Medications: Active Medications Generic Name Dose Route Start Last Admin Trade Name Freq PRN Reason Stop Dose Admin Acetaminophen/Codeine Phosphate 1 tab 05/29/19 20:45 06/02/19 21:55 Tylenol #3 PO 1 tab Q4H PRN Administration Moderate Pain (4-6) Amiodarone HCl 200 mg 05/13/19 09:00 06/03/19 09:29 Cordarone PO 200 mg DAILY MIYA Administration Apixaban 5 mg 05/24/19 09:00 06/03/19 09:28 Eliquis PO 5 mg Q12HR MIYA Administration Aspirin 81 mg 05/13/19 09:00 06/03/19 09:28 Ecotrin PO 81 mg DAILY MIYA Administration Atorvastatin Calcium 80 mg 05/12/19 21:00 06/02/19 20:26 Lipitor PO 80 mg HS MIYA Administration Benzocaine/Menthol 0 ml 05/30/19 12:09 05/30/19 12:30 Dermoplast TOP 1 spr PRN PRN Administration Topical Irritations Bumetanide 1 mg 05/24/19 07:30 06/03/19 09:28 Bumex PO 1 mg DAILY-AC MIYA Administration Carvedilol 3.125 mg 05/12/19 21:00 06/03/19 09:28 Coreg PO 3.125 mg BID MIYA Administration Cephalexin 500 mg 05/30/19 17:00 06/03/19 14:49 Keflex PO 500 mg QID MIYA Administration Ezetimibe 10 mg 05/15/19 09:00 06/03/19 09:29 Zetia PO 10 mg DAILY MIYA Administration Famotidine 20 mg 05/09/19 21:00 06/03/19 09:29 Pepcid PO 20 mg BID MIYA Administration Gabapentin 100 mg 05/27/19 09:00 06/03/19 09:29 Neurontin PO 100 mg DAILY MIYA Administration Lisinopril 5 mg 05/14/19 09:00 06/03/19 10:05 Zestril PO Not Given DAILY [facility] Promethazine HCl 25 mg 05/18/19 13:27 05/18/19 13:35 Phenergan PO 25 mg Q6H PRN Administration Nausea Saccharomyces Boulardii 250 mg 05/19/19 09:00 06/03/19 09:28 Florastor PO 250 mg DAILY [facility] Administration Senna/Docusate Sodium 2 tab 05/09/19 15:37 05/24/19 12:30 Senokot S PO 2 tab BID PRN Administration Constipation Spironolactone 50 mg 05/13/19 21:00 06/03/19 09:30 Aldactone PO Not Given BID [facility] Zolpidem Tartrate 5 mg 05/09/19 15:48 06/02/19 21:55 Ambien PO 5 mg HSPRN PRN Administration Insomnia - Exam General - other findings: Morbid obesity Eye: anicteric sclera ENT: moist mucosa Neck: supple, no thyromegaly Heart: RRR, no rubs Respiratory: CTAB Gastrointestinal: soft, non-tender, normal bowel sounds Musculoskeletal: normal tone Psychiatric: normal affect, normal behavior Hosp A/P (1) Chronic combined systolic (congestive) and diastolic (congestive) heart failure Code(s): I50.42 - CHRONIC COMBINED SYSTOLIC AND DIASTOLIC HRT FAIL Status: Chronic (2) CAD (coronary artery disease) Code(s): I25.10 - ATHSCL HEART DISEASE OF [place] CORONARY ARTERY W/O ANG PCTRS Status: Chronic Qualifiers: Coronary Disease-Associated Artery/Lesion type: [place] artery [place] vs. transplanted heart: [place] heart Associated angina: without angina Qualified Code(s): I25.10 - Atherosclerotic heart disease of [place] coronary artery without angina pectoris (3) Morbid obesity with BMI of 50.0-59.9, adult Code(s): E66.01 - MORBID (SEVERE) OBESITY DUE TO EXCESS CALORIES; Z68.43 - BODY MASS INDEX (BMI) 50-59.9, ADULT Status: Chronic (4) Dyslipidemia Code(s): E78.5 - HYPERLIPIDEMIA, UNSPECIFIED Status: Chronic (5) HTN (hypertension) Code(s): I10 - ESSENTIAL (PRIMARY) HYPERTENSION Status: Chronic Qualifiers: Hypertension type: essential hypertension Qualified Code(s): I10 - Essential (primary) hypertension - Plan PT/OT, out of bed/ambulate Pt awaiting SNU bed. CAD stable. CHF stable, exacerbation has resolved. s/p PPM, on Keflex. Blood pressure controlled.
[2019-06-03] MEDS: Atorvastatin Calcium 40 MG TAB PO SCH (20:13)
[2019-06-03] MEDS: Acetaminophen/Codeine 30-300mg Tablet PO PRN (22:11)
[2019-06-03] MEDS: Zolpidem Tartrate 5 MG TAB PO PRN (22:12)
[2019-06-04] MEDS: Gabapentin 100 MG CAP PO SCH (08:25)
[2019-06-04] MEDS: Aspirin 81 mg Enteric Coated Tablet PO SCH (08:25)
[2019-06-04] MEDS: Apixaban 5 MG TAB PO SCH ×2 (08:25→20:11)
[2019-06-04] MEDS: Carvedilol 3.125 MG TAB PO SCH ×2 (08:25→20:12)
[2019-06-04] MEDS: Spironolactone 25 MG TAB PO SCH ×2 (08:25→20:12)
[2019-06-04] MEDS: Saccharomyces boulardii 250 MG CAP PO SCH (08:25)
[2019-06-04] MEDS: Famotidine 20 MG TAB PO SCH ×2 (08:25→20:11)
[2019-06-04] MEDS: Bumetanide 1 MG TAB PO SCH (08:25)
[2019-06-04] MEDS: Ezetimibe 10 MG TAB PO SCH (08:25)
[2019-06-04] MEDS: Amiodarone 200 MG TAB PO SCH (08:25)
[2019-06-04] MEDS: Cephalexin 250 MG CAP PO SCH ×4 (09:50→20:12)
[2019-06-04] MEDS: Lisinopril 5 MG TAB PO SCH (13:05)
--- NOTE | 2019-06-04 17:38 | PDOC.HOSPP ---
- Subjective Encounter Date: 06/04/19 Encounter Time: 09:40 Subjective: Pt seen for followup re: CHF exacerbation. Feels well, no complaints. - Objective Vital Signs & Weight: Vital Signs (12 hours) Temp Pulse Resp BP BP Pulse Ox 06/04/19 16:00 98.3 F 53 L 20 94/59 L 94 L 06/04/19 13:05 103/68 06/04/19 12:00 97.7 F 60 20 107/69 94 L 06/04/19 08:00 98.1 F 60 20 103/68 95 Weight Admit Weight 444 lb 9.6 oz Weight 430 lb 9 oz I&O: 06/03/19 06/04/19 06/05/19 06:59 06:59 06:59 Intake Total 900 1210 Output Total 1350 1550 Balance -450 -340 Result Diagrams: 05/27/19 04:48 05/27/19 04:48 Additional Labs: Labs and MARs reviewed by me Hospitalist ROS - Review of Systems Respiratory: reports: SOB with excertion Cardiovascular: denies: chest pain, palpitations, orthopnea, paroxysmal noc. dyspnea, edema, light headedness Gastrointestinal: denies: nausea, vomitting, abdominal pain, diarrhea, constipation, melena, hematochezia - Medication Medications: Active Medications Generic Name Dose Route Start Last Admin Trade Name Freq PRN Reason Stop Dose Admin Acetaminophen/Codeine Phosphate 1 tab 05/29/19 20:45 06/03/19 22:11 Tylenol #3 PO 1 tab Q4H PRN Administration Moderate Pain (4-6) Amiodarone HCl 200 mg 05/13/19 09:00 06/04/19 08:25 Cordarone PO 200 mg DAILY MIYA Administration Apixaban 5 mg 05/24/19 09:00 06/04/19 08:25 Eliquis PO 5 mg Q12HR MIYA Administration Aspirin 81 mg 05/13/19 09:00 06/04/19 08:25 Ecotrin PO 81 mg DAILY MIYA Administration Atorvastatin Calcium 80 mg 05/12/19 21:00 06/03/19 20:13 Lipitor PO 80 mg HS MIYA Administration Benzocaine/Menthol 0 ml 05/30/19 12:09 05/30/19 12:30 Dermoplast TOP 1 spr PRN PRN Administration Topical Irritations Bumetanide 1 mg 05/24/19 07:30 06/04/19 08:25 Bumex PO 1 mg DAILY-AC [facility] Administration Carvedilol 3.125 mg 05/12/19 21:00 06/04/19 08:25 Coreg PO 3.125 mg BID [facility] Administration Cephalexin 500 mg 05/30/19 17:00 06/04/19 16:50 Keflex PO 500 mg QID [facility] Administration Ezetimibe 10 mg 05/15/19 09:00 06/04/19 08:25 Zetia PO 10 mg DAILY [facility] Administration Famotidine 20 mg 05/09/19 21:00 06/04/19 08:25 Pepcid PO 20 mg BID [facility] Administration Gabapentin 100 mg 05/27/19 09:00 06/04/19 08:25 Neurontin PO 100 mg DAILY [facility] Administration Lisinopril 5 mg 05/14/19 09:00 06/04/19 13:05 Zestril PO Not Given DAILY [facility] Promethazine HCl 25 mg 05/18/19 13:27 05/18/19 13:35 Phenergan PO 25 mg Q6H PRN Administration Nausea Saccharomyces Boulardii 250 mg 05/19/19 09:00 06/04/19 08:25 Florastor PO 250 mg DAILY [facility] Administration Senna/Docusate Sodium 2 tab 05/09/19 15:37 05/24/19 12:30 Senokot S PO 2 tab BID PRN Administration Constipation Spironolactone 50 mg 05/13/19 21:00 06/04/19 08:25 Aldactone PO Not Given BID [facility] Zolpidem Tartrate 5 mg 05/09/19 15:48 06/03/19 22:12 Ambien PO 5 mg HSPRN PRN Administration Insomnia - Exam General - other findings: Morbid obesity Eye: anicteric sclera ENT: moist mucosa Neck: supple Heart: RRR, no rubs Respiratory: CTAB Gastrointestinal: soft, non-tender Skin: no rashes Musculoskeletal: normal tone Hosp A/P (1) Chronic combined systolic (congestive) and diastolic (congestive) heart failure Code(s): I50.42 - CHRONIC COMBINED SYSTOLIC AND DIASTOLIC HRT FAIL Status: Chronic (2) CAD (coronary artery disease) Code(s): I25.10 - ATHSCL HEART DISEASE OF [place] CORONARY ARTERY W/O ANG PCTRS Status: Chronic Qualifiers: Coronary Disease-Associated Artery/Lesion type: [place] artery [place] vs. transplanted heart: [place] heart Associated angina: without angina Qualified Code(s): I25.10 - Atherosclerotic heart disease of [place] coronary artery without angina pectoris (3) Morbid obesity with BMI of 50.0-59.9, adult Code(s): E66.01 - MORBID (SEVERE) OBESITY DUE TO EXCESS CALORIES; Z68.43 - BODY MASS INDEX (BMI) 50-59.9, ADULT Status: Chronic (4) Dyslipidemia Code(s): E78.5 - HYPERLIPIDEMIA, UNSPECIFIED Status: Chronic (5) HTN (hypertension) Code(s): I10 - ESSENTIAL (PRIMARY) HYPERTENSION Status: Chronic Qualifiers: Hypertension type: essential hypertension Qualified Code(s): I10 - Essential (primary) hypertension - Plan PT/OT, out of bed/ambulate Pt awaiting SNU bed. CAD stable. CHF stable. Continue keflex. HTNcontrolled.
[2019-06-04] MEDS: Atorvastatin Calcium 40 MG TAB PO SCH (20:11)
[2019-06-04] MEDS: Zolpidem Tartrate 5 MG TAB PO PRN (22:04)
[2019-06-04] MEDS: Acetaminophen/Codeine 30-300mg Tablet PO PRN (22:04)
[2019-06-05] MEDS: Cephalexin 250 MG CAP PO SCH ×4 (09:34→20:31)
[2019-06-05] MEDS: Aspirin 81 mg Enteric Coated Tablet PO SCH (09:34)
[2019-06-05] MEDS: Lisinopril 5 MG TAB PO SCH (09:34)
[2019-06-05] MEDS: Apixaban 5 MG TAB PO SCH ×2 (09:34→20:31)
[2019-06-05] MEDS: Bumetanide 1 MG TAB PO SCH (09:34)
[2019-06-05] MEDS: Spironolactone 25 MG TAB PO SCH ×2 (09:34→20:31)
[2019-06-05] MEDS: Carvedilol 3.125 MG TAB PO SCH ×2 (09:34→20:31)
[2019-06-05] MEDS: Saccharomyces boulardii 250 MG CAP PO SCH (09:34)
[2019-06-05] MEDS: Ezetimibe 10 MG TAB PO SCH (09:34)
[2019-06-05] MEDS: Gabapentin 100 MG CAP PO SCH (09:35)
[2019-06-05] MEDS: Famotidine 20 MG TAB PO SCH ×2 (09:35→20:31)
[2019-06-05] MEDS: Amiodarone 200 MG TAB PO SCH (09:35)
--- NOTE | 2019-06-05 17:04 | PDOC.HOSPP ---
- Subjective Encounter Date: 06/05/19 Encounter Time: 17:03 Subjective: Pt seen for followup re: CHF exacerbation. Says he feels better. - Objective Vital Signs & Weight: Vital Signs (12 hours) Temp Pulse Resp BP BP Pulse Ox 06/05/19 12:00 97.7 F 63 20 128/71 94 L 06/05/19 09:34 61 112/74 06/05/19 08:16 95 06/05/19 07:52 97.6 F 62 20 112/74 95 Weight Admit Weight 444 lb 9.6 oz Weight 430 lb 9 oz I&O: 06/04/19 06/05/19 06/06/19 06:59 06:59 06:59 Intake Total 1210 1680 Output Total 1550 3350 Balance -340 -1670 Result Diagrams: 05/27/19 04:48 05/27/19 04:48 Additional Labs: Labs and MARs reviewed by me Hospitalist ROS - Review of Systems Cardiovascular: denies: chest pain, palpitations, orthopnea, paroxysmal noc. dyspnea, edema, light headedness Gastrointestinal: denies: nausea, vomitting, abdominal pain, diarrhea, constipation, melena, hematochezia - Medication Medications: Active Medications Generic Name Dose Route Start Last Admin Trade Name Freq PRN Reason Stop Dose Admin Acetaminophen/Codeine Phosphate 1 tab 05/29/19 20:45 06/04/19 22:04 Tylenol #3 PO 1 tab Q4H PRN Administration Moderate Pain (4-6) Amiodarone HCl 200 mg 05/13/19 09:00 06/05/19 09:35 Cordarone PO 200 mg DAILY MIYA Administration Apixaban 5 mg 05/24/19 09:00 06/05/19 09:34 Eliquis PO 5 mg Q12HR MIYA Administration Aspirin 81 mg 05/13/19 09:00 06/05/19 09:34 Ecotrin PO 81 mg DAILY MIYA Administration Atorvastatin Calcium 80 mg 05/12/19 21:00 06/04/19 20:11 Lipitor PO 80 mg HS MIYA Administration Benzocaine/Menthol 0 ml 05/30/19 12:09 05/30/19 12:30 Dermoplast TOP 1 spr PRN PRN Administration Topical Irritations Bumetanide 1 mg 05/24/19 07:30 06/05/19 09:34 Bumex PO 1 mg DAILY-AC MIYA Administration Carvedilol 3.125 mg 05/12/19 21:00 06/05/19 09:34 Coreg PO 3.125 mg BID MIYA Administration Cephalexin 500 mg 05/30/19 17:00 06/05/19 13:07 Keflex PO 500 mg QID MIYA Administration Ezetimibe 10 mg 05/15/19 09:00 06/05/19 09:34 Zetia PO 10 mg DAILY MIYA Administration Famotidine 20 mg 05/09/19 21:00 06/05/19 09:35 Pepcid PO 20 mg BID MIYA Administration Gabapentin 100 mg 05/27/19 09:00 06/05/19 09:35 Neurontin PO 100 mg DAILY [facility] Administration Lisinopril 5 mg 05/14/19 09:00 06/05/19 09:34 Zestril PO 5 mg DAILY MIYA Administration Promethazine HCl 25 mg 05/18/19 13:27 05/18/19 13:35 Phenergan PO 25 mg Q6H PRN Administration Nausea Saccharomyces Boulardii 250 mg 05/19/19 09:00 06/05/19 09:34 Florastor PO 250 mg DAILY [facility] Administration Senna/Docusate Sodium 2 tab 05/09/19 15:37 05/24/19 12:30 Senokot S PO 2 tab BID PRN Administration Constipation Spironolactone 50 mg 05/13/19 21:00 06/05/19 09:34 Aldactone PO Not Given BID [facility] Zolpidem Tartrate 5 mg 05/09/19 15:48 06/04/19 22:04 Ambien PO 5 mg HSPRN PRN Administration Insomnia - Exam General - other findings: Morbid obese Eye: anicteric sclera ENT: moist mucosa Neck: no JVD Heart: RRR, no rubs Respiratory: CTAB Gastrointestinal: soft, normal bowel sounds Neurological: no weakness Psychiatric: normal affect, normal behavior Hosp A/P (1) Chronic combined systolic (congestive) and diastolic (congestive) heart failure Code(s): I50.42 - CHRONIC COMBINED SYSTOLIC AND DIASTOLIC HRT FAIL Status: Chronic (2) CAD (coronary artery disease) Code(s): I25.10 - ATHSCL HEART DISEASE OF [place] CORONARY ARTERY W/O ANG PCTRS Status: Chronic Qualifiers: Coronary Disease-Associated Artery/Lesion type: [place] artery [place] vs. transplanted heart: [place] heart Associated angina: without angina Qualified Code(s): I25.10 - Atherosclerotic heart disease of [place] coronary artery without angina pectoris (3) Morbid obesity with BMI of 50.0-59.9, adult Code(s): E66.01 - MORBID (SEVERE) OBESITY DUE TO EXCESS CALORIES; Z68.43 - BODY MASS INDEX (BMI) 50-59.9, ADULT Status: Chronic (4) Dyslipidemia Code(s): E78.5 - HYPERLIPIDEMIA, UNSPECIFIED Status: Chronic (5) HTN (hypertension) Code(s): I10 - ESSENTIAL (PRIMARY) HYPERTENSION Status: Chronic Qualifiers: Hypertension type: essential hypertension Qualified Code(s): I10 - Essential (primary) hypertension - Plan PT/OT, out of bed/ambulate Insurance authorization obtained but [facility] cannot take today due to delay in obtaining a bariatric bed. CAD and CHF are stable. Continue keflex. HTNcontrolled.
[2019-06-05] MEDS: Atorvastatin Calcium 40 MG TAB PO SCH (20:31)
[2019-06-05] MEDS: Zolpidem Tartrate 5 MG TAB PO PRN (21:34)
[2019-06-05] MEDS: Acetaminophen/Codeine 30-300mg Tablet PO PRN (21:34)
--- NOTE | 2019-06-06 03:43 | DIS ---
DATE OF ADMISSION: 05/09/2019 DATE OF DISCHARGE: 06/05/2019 PRIMARY CARE PROVIDER: Iza Giraldo. DISCHARGE DIAGNOSES: 1. Acute on chronic congestive heart failure with systolic and diastolic dysfunction. 2. Right leg cellulitis. 3. Morbid obesity. 4. Ischemic cardiomyopathy. 5. Rate controlled atrial fibrillation. 6. Status post biventricular pacer. 7. Hyponatremia secondary to SIADH. Please refer to Dr. Dejesus's discharge summary dictated on May 30, 2019. The patient was not discharged that day secondary to finding [facility] facility bed and obtaining insurance authorization. On June 05, the insurance authorization was obtained and patient is being discharged to [facility]. HOSPITAL COURSE: As described by Dr. Dejesus in his discharge summary dated May 30, 2019. DISCHARGE MEDICATIONS: As dictated by Dr. Dejesus in his discharge summary dated May 30, 2019. FOLLOWUP APPOINTMENTS: The patient is advised to follow up with primary care provider, Cardiology Service, and Electrophysiology Service. CONDITION OF PATIENT ON THE DAY OF DISCHARGE: Stable. I assessed Mr. Prather on the day of discharge. He denies any chest pain or shortness of breath. Vital signs are stable. S1 and S2 are heard, regular. Lungs are clear to auscultation bilaterally. DISCHARGE DESTINATION: [facility]. TIME SPENT: Total amount of time spent coordinating this discharge: 22 minutes. Job ID: [id number]
[2019-06-06 08:24] VITALS: TEMP 97.6
[2019-06-06] MEDS: Cephalexin 250 MG CAP PO SCH ×3 (08:32→17:36)
[2019-06-06] MEDS: Carvedilol 3.125 MG TAB PO SCH (08:32)
[2019-06-06] MEDS: Apixaban 5 MG TAB PO SCH (08:32)
[2019-06-06] MEDS: Saccharomyces boulardii 250 MG CAP PO SCH (08:32)
[2019-06-06] MEDS: Gabapentin 100 MG CAP PO SCH (08:32)
[2019-06-06] MEDS: Aspirin 81 mg Enteric Coated Tablet PO SCH (08:32)
[2019-06-06] MEDS: Amiodarone 200 MG TAB PO SCH (08:33)
[2019-06-06] MEDS: Ezetimibe 10 MG TAB PO SCH (08:33)
[2019-06-06] MEDS: Bumetanide 1 MG TAB PO SCH (08:33)
[2019-06-06] MEDS: Famotidine 20 MG TAB PO SCH (08:33)
[2019-06-06] MEDS: Spironolactone 25 MG TAB PO SCH (08:33)
[2019-06-06] MEDS: Lisinopril 5 MG TAB PO SCH (08:35)
[2019-06-06 15:46] VITALS: BP 113/65
--- NOTE | 2019-06-07 10:54 | DIS ---
DATE OF ADMISSION: 05/09/2019 DATE OF DISCHARGE: 06/06/2019 PRIMARY CARE PROVIDER: Iza Giraldo. Please note that, I dictated a discharge summary on June 05, 2019. Mr. Prather could not be discharged to [facility] facility because of delay in obtaining bariatric bed. The bariatric bed is available now and he is being discharged to [facility]. DISCHARGE DIAGNOSES: 1. Acute on chronic congestive heart failure with combined systolic and diastolic dysfunction. 2. Right leg cellulitis. 3. Morbid obesity. 4. Ischemic cardiomyopathy. 5. Rate controlled atrial fibrillation. 6. Status post biventricular pacemaker. 7. Hyponatremia secondary to syndrome of inappropriate antidiuretic hormone secretion. 8. Lower extremity cellulitis. HOSPITAL COURSE: As dictated by Dr. Dejesus in his discharge summary dated May 30, 2019. DISCHARGE MEDICATIONS: As dictated by Dr. Dejesus in his discharge summary dated May 30, 2019. FOLLOWUP APPOINTMENTS: With primary care provider, Cardiology, and Electrophysiology Services. CONDITION OF PATIENT ON THE DAY OF DISCHARGE: Stable. I assessed Mr. Prather on the day of discharge. He denies any chest pain or shortness of breath. Vital signs are stable. S1 and S2 are heard, regular. Lungs are clear to auscultation bilaterally. DISCHARGE DESTINATION: [facility]. TIME SPENT: Time spent coordinating the discharge: 18 minutes. Job ID: [id number]
== END 2019-06-06 17:42 | DRG 226 ==
LOC: ERS 08:07 → ERHOLD 10:30 → 2NO 10:57 → T4-B 05-29 14:46
PROVIDERS: ADMIT Internal Medicine Nephrology; ATTEND Internal Medicine Nephrology
PROC: B24BZZ4 Ultrasonography of Heart with Aorta, Transesophageal (ICD-10-PCS; 2019-05-15)
PROC: 0JH609Z Insertion of Cardiac Resynchronization Defibrillator Pulse Generator into Chest Subcutaneous Tissue and Fascia, Open Approach (ICD-10-PCS; principal; 2019-05-19)
PROC: 02HK3KZ Insertion of Defibrillator Lead into Right Ventricle, Percutaneous Approach (ICD-10-PCS; 2019-05-19)
PROC: 02HL3KZ Insertion of Defibrillator Lead into Left Ventricle, Percutaneous Approach (ICD-10-PCS; 2019-05-19)
PROC: 0JPT0PZ Removal of Cardiac Rhythm Related Device from Trunk Subcutaneous Tissue and Fascia, Open Approach (ICD-10-PCS; 2019-05-19)
PROC: 4B02XTZ Measurement of Cardiac Defibrillator, External Approach (ICD-10-PCS; 2019-05-22)
DX: I13.0 Hypertensive heart and chronic kidney disease with heart failure and stage 1 through stage 4 chronic kidney disease, or unspecified chronic kidney disease (principal); I50.43 Acute on chronic combined systolic (congestive) and diastolic (congestive) heart failure; Z68.43 Body mass index [BMI] 50.0-59.9, adult; L03.115 Cellulitis of right lower limb; I25.810 Atherosclerosis of coronary artery bypass graft(s) without angina pectoris; E22.2 Syndrome of inappropriate secretion of antidiuretic hormone; E66.01 Morbid (severe) obesity due to excess calories; I87.2 Venous insufficiency (chronic) (peripheral); I25.5 Ischemic cardiomyopathy; E78.5 Hyperlipidemia, unspecified; F43.10 Post-traumatic stress disorder, unspecified; F32.9 Major depressive disorder, single episode, unspecified; I48.0 Paroxysmal atrial fibrillation; F17.210 Nicotine dependence, cigarettes, uncomplicated; F41.9 Anxiety disorder, unspecified; E87.6 Hypokalemia; E78.00 Pure hypercholesterolemia, unspecified; B37.2 Candidiasis of skin and nail; L98.499 Non-pressure chronic ulcer of skin of other sites with unspecified severity; I07.1 Rheumatic tricuspid insufficiency; E11.622 Type 2 diabetes mellitus with other skin ulcer; Z79.82 Long term (current) use of aspirin; Z95.0 Presence of cardiac pacemaker; Z90.49 Acquired absence of other specified parts of digestive tract; Z95.1 Presence of aortocoronary bypass graft; Z79.899 Other long term (current) drug therapy; I25.2 Old myocardial infarction; Z91.19 Patient's noncompliance with other medical treatment and regimen; I44.30 Unspecified atrioventricular block; E11.22 Type 2 diabetes mellitus with diabetic chronic kidney disease; N18.2 Chronic kidney disease, stage 2 (mild)
CPT/HCPCS: 33222; 33225; 36005; 36415; 36416; 71045; 71046; 75820; 80048; 80053; 80061; 81003; 83605; 83735; 83880; 84443; 84484; 85025; 87040; 87086; 93005; 93306; 93312; 93923; 96365; C1769; C1882; C1895; C1900; J0461; J0690; J0696; J1650; J1940; J2001; J2250; J2704; J3010; J3490; Q0169; Q9967

== ENCOUNTER 2020-04-23 07:50 | Observation (INO) | payer MEDICARE ==
[2020-04-23 08:45] LABS: #Eosinphils 0.3 thou/uL (0.0-0.7); #Lymphocytes 0.9 thou/uL (1.20-3.40); #Monocytes 0.6 thou/uL (0.11-0.59); #Neutrophils 3.4 thou/uL (1.40-6.50); %Basophils 0.5 % (0.0-1.0); %Eosinophils 4.9 % (0.0-10.0); %Lymphocytes 17.2 % (21.0-51.0); %Monocytes 11.9 % (0.0-10.0); %Neutrophils 65.4 % (42.0-75.0); Hemoglobin 15.1 g/dL (14.0-18.0); Mean Corpuscular HGB CONC 32.2 g/dL (32.0-36.0); Mean Corpuscular Hemoglobin 31.3 pg (27.0-31.0); Mean Platelet Volume 8.6 fL (7.4-10.4); Platelet Count 123 thou/uL (130-400); RBC Distribution Width 13.8 % (11.5-14.5); Red Blood Cell (RBC) Count 4.82 mill/uL (4.70-6.10); White Blood Cell (WBC) Count 5.3 thou/uL (4.8-10.8)
--- NOTE | 2020-04-23 08:45 | RAD ---
Chest AP view INDICATION: Chest tightness COMPARISON: May 19, 2019 FINDINGS: Lungs: The lungs are clear Cardiac silhouette: Stable cardiomegaly, midline sternotomy changes and valvular prosthetic placemen t. The mitral valvular prosthesis projects in expected position. Multi lead AICD is unchanged. Pulmonary vasculature: Normal Pleural spaces: No pleural effusion or pneumothorax is demonstrated. Upper abdomen: No abnormality seen. Osseous structures: No acute osseous abnormality. Additional findings: None. IMPRESSION: Stable cardiomegaly and postoperative change of the chest.
[2020-04-23 09:12] LABS: ALT (SGPT) 25 U/L (8-55); AST (SGOT) 28 U/L (5-34); Albumin 3.6 g/dL (3.4-4.8); Alkaline Phosphatase 98 U/L (40-110); BUN (Urea Nitrogen) 32 mg/dL (8.4-25.7); Bilirubin, Total 0.6 mg/dL (0.2-1.2); Calc. Creatinine Clearance 0 mL/min (70-130); Calcium 9.5 mg/dL (7.8-10.44); Carbon Dioxide 18 mmol/L (23-31); Chloride 104 mmol/L (98-107); Estimated GFR-MDRD 55; Globulin 4.4 g/dL (2.4-3.5); Glucose 141 mg/dL (80-115); Potassium 4.7 mmol/L (3.5-5.1); Sodium 136 mmol/L (136-145)
[2020-04-23 09:33] LABS: CKMB 1.2 ng/mL (0-6.6)
[2020-04-23 09:46] LABS: Anion Gap 19 mmol/L (10-20)
[2020-04-23 10:01] LABS: SARS-CoV-2 NAA Rapid Test Not Detected (NotDetected)
[2020-04-23] MEDS ORDERED: Acetaminophen 325 MG TAB PO PRN (11:33)
[2020-04-23] MEDS ORDERED: Ondansetron ODT 4 MG TAB PO PRN (11:33)
[2020-04-23] MEDS ORDERED: Nitroglycerin 0.4 MG TAB (25 Tab Bottle) PO PRN (11:33)
--- NOTE | 2020-04-23 11:33 | PDOC.FPRHP ---
- History of Present Illness Chief Complaint: Chest tightness History of Present Illness: Patient is a 60 y/o male with a history of CAD, ischemic cardiomyopathy, Afib s/ p biventricular pacemaker, CHF, HTN, DMII and morbid obesity came to the ED via EMS due to chest tightness. The patient states the pain began at 3am and remained constant. Pain described as an elephant sitting on his sternum. He denies radiation. The patient says nothing worsens the pain, including palpation and movement. He experienced pain improvement after receiving nitro and ASA in the ED. He also notes that his pain improved from a 5/10 to a 2/10 after hearing that he was COVID negative. The patient reports multiple stressors including finances and relatives in [place] that he believes has attributed to his pain. He reports some chest pain yesterday while walking that was associated with SOB. He says the pain is different than when he experienced an [place]. He currently denies sweating, chills, SOB, nausea, vomiting, abdominal pain and edema. He underwent a triple bypass surgery in 2015. He does not follow up with a sewer pipe offbearer but sees Dr. Kothari for his CHF. Pacemaker was placed in 2018 for atrial pacing. The patient currently smokes 5 cigarettes per day. ED Course: Patient given ASA and nitro in the ED. Vitals were stable. Trop was 0.05. EKG showed AV paced rhythm with PVCs, no ST segment changes. - Allergies/Adverse Reactions Allergies Allergy/AdvReac Type Severity Reaction Status Date / Time No Known Allergies Allergy Verified 04/23/20 12:07 - Home Medications Medication Instructions Recorded Confirmed Type Amiodarone [Cordarone] 0.5 tab PO DAILY 05/09/19 04/23/20 History Atorvastatin Calcium [Lipitor] 1 tab PO DAILY 05/09/19 04/23/20 History Apixaban [Eliquis] 5 mg PO BID #60 tab 05/30/19 04/23/20 Rx Bumetanide 1 tab PO DAILY 04/23/20 04/23/20 History Carvedilol 1 tab PO BID- 04/23/20 04/23/20 History Potassium Chloride [Klor-Con 10] 10 meq PO BID- 04/23/20 04/23/20 History Spironolactone [Aldactone] 50 mg PO DAILY 04/23/20 04/23/20 History hydrOXYzine HCl [Hydroxyzine HCl] 1 tab PO HS PRN 04/23/20 04/23/20 History - History PMHx: CHF, Afib with biventricular pacemaker, ischemic cardiomyopathy, CAD s/p triple bypass, HTN, DMII, venostasis dermatitis, dyslipidemia, morbid obesity PSHx: hydrocil, hernia x 2, appendectomy, pacemaker FHx: Mother - Alzheimer's disease, Sibling - [place] Social: Lives at home by himself. Smokes 5 cigarettes per day. Drinks 2 6-packs of beer per month. Smokes marijuana occasionally, most recently a few weeks ago. - Review of Systems General: denies: fever/chills, night sweats, fatigue Eyes: denies: eye pain, vision changes ENT: denies: nasal congestion, rhinorrhea Respiratory: reports: exercise intolerance. denies: cough, congestion, shortness of breath Cardiovascular: reports: chest pain. denies: palpitation, edema Gastrointestinal: denies: nausea, vomiting, diarrhea, constipation, abdominal pain Genitourinary: denies: dysuria, polyuria Skin: denies: rashes, lesions Musculoskeletal: denies: pain, tenderness Neurological: denies: numbness, weakness Psychological: reports: anxiety. denies: depression - Vital signs BP: [107/76] HR: [69] RR: [18] Tmax: [98.6] Pox: [97]% on [RA] Wt: [136.08kg] - Physical Exam Constitutional: NAD -Constitutional: Morbidly obese HEENT: normocephalic and atraumatic, conjunctiva clear Neck: supple, trachea midline Chest: no-tender to palpation, no lesions Heart: RRR, normal S1/S2, no murmurs/rubs/gallops, pulses present -Heart: Nonpitting edema present Lungs: CTAB, no respiratory distress Abdomen: soft, non-tender, bowel sounds present Musculoskeletal: normal structure, ROM grossly normal Neurological: no focal deficit, CN II-XII intact -Skin: Venostasis dermatitis present Heme/Lymphatic: no unusual bruising or bleeding, no purpura, no petechia Psychiatric: normal mood and affect -Psychiatric: Tangential speech FMR H&P: Results - Labs Result Diagrams: 04/23/20 08:25 04/23/20 08:25 Lab results: WBC 5.3 thou/uL (4.8-10.8) 04/23/20 08:25 Hgb 15.1 g/dL (14.0-18.0) 04/23/20 08:25 Hct 46.7 % (42.0-52.0) 04/23/20 08:25 MCV 97.0 fL (78.0-98.0) 04/23/20 08:25 Plt Count 123 thou/uL (130-400) L 04/23/20 08:25 Neutrophils % 65.4 % (42.0-75.0) 04/23/20 08:25 Sodium 136 mmol/L (136-145) 04/23/20 08:25 Potassium 4.7 mmol/L (3.5-5.1) 04/23/20 08:25 Chloride 104 mmol/L (98-107) 04/23/20 08:25 Carbon Dioxide 18 mmol/L (23-31) L 04/23/20 08:25 BUN 32 mg/dL (8.4-25.7) H 04/23/20 08:25 Creatinine 1.31 mg/dL (0.7-1.3) H 04/23/20 08:25 Glucose 141 mg/dL (80-115) H 04/23/20 08:25 Lactic Acid 1.6 mmol/L (0.5-2.2) 04/23/20 08:25 Calcium 9.5 mg/dL (7.8-10.44) 04/23/20 08:25 Total Bilirubin 0.6 mg/dL (0.2-1.2) 04/23/20 08:25 AST 28 U/L (5-34) 04/23/20 08:25 ALT 25 U/L (8-55) 04/23/20 08:25 Alkaline Phosphatase 98 U/L (40-110) 04/23/20 08:25 CK-MB (CK-2) 1.2 ng/mL (0-6.6) 04/23/20 08:25 B-Natriuretic Peptide 557.2 pg/mL (0-100) H 04/23/20 09:42 Serum Total Protein 8.0 g/dL (5.8-8.1) 04/23/20 08:25 Albumin 3.6 g/dL (3.4-4.8) 04/23/20 08:25 FMR H&P: A/P - Problem List (1) Adult body mass index 60.0-69.9 Current Visit: No Status: Acute Code(s): Z68.44 - BODY MASS INDEX (BMI) 60.0 -69.9, ADULT (2) Tobacco abuse Current Visit: No Status: Acute Code(s): Z72.0 - TOBACCO USE (3) Atrial fibrillation Current Visit: No Status: Chronic Code(s): I48.91 - UNSPECIFIED ATRIAL FIBRILLATION (4) CAD (coronary artery disease) Current Visit: No Status: Chronic Code(s): I25.10 - ATHSCL HEART DISEASE OF [place] CORONARY ARTERY W/O ANG PCTRS Qualifiers: Coronary Disease-Associated Artery/Lesion type: [place] artery [place] vs. transplanted heart: [place] heart Associated angina: without angina Qualified Code(s): I25.10 - Atherosclerotic heart disease of [place] coronary artery without angina pectoris (5) Chronic combined systolic (congestive) and diastolic (congestive) heart failure Current Visit: No Status: Chronic Code(s): I50.42 - CHRONIC COMBINED SYSTOLIC AND DIASTOLIC HRT FAIL (6) Chronic venous stasis dermatitis of both lower extremities Current Visit: No Status: Chronic Code(s): I87.2 - VENOUS INSUFFICIENCY ( CHRONIC) (PERIPHERAL) (7) DM type 2 (diabetes mellitus, type 2) Current Visit: No Status: Chronic Qualifiers: Diabetes mellitus fdc insulin use: without fdc use (8) Dyslipidemia Current Visit: No Status: Chronic Code(s): E78.5 - HYPERLIPIDEMIA, UNSPECIFIED (9) HTN (hypertension) Current Visit: No Status: Chronic Code(s): I10 - ESSENTIAL (PRIMARY) HYPERTENSION Qualifiers: Hypertension type: essential hypertension Qualified Code(s): I10 - Essential (primary) hypertension (10) Ischemic cardiomyopathy Current Visit: No Status: Chronic Code(s): I25.5 - ISCHEMIC CARDIOMYOPATHY - Plan 1. Atypical chest pain Etiology likely due to anxiety as patient reports recent stressors and noted improvement of pain after learning he's COVID negative. Trop was 0.05. EKG showed AV paced rhythm with PVCs, no ST segment changes. BNP 557.2, down from previous admission. CXR showed stable cardiomegaly. HEART score: 6. Patient admitted to [facility] obs due to extensive cardiac history. Dr. Rosa, cardiology, was consulted. -Trend troponins -Nitro PRN -A1C level -Lipid panel -TSH level -Hydroxyzine for anxiety -F/u cardiology recs 2. CAD s/p triple bypass Bypass completed in 2015 -Continue home medications 3. CHF History of combined HF with EF 30% on PRAVEEN, noted to be technically difficult due to body habitus. Patient follows up with Dr. Kothari. BNP 557.2, down from previous admission. -Continue home medications 4. Afib s/p Bi-V pacemaker -Continue home medications 5. HTN BP stable. -Continue home medications 6. Ischemic cardiomyopathy -Stable cardiomegaly on CXR 7. LIBRA Creatinine 1.31. BUN 32. Due to history of CHF, will hold off on IVF. -Encourage PO fluid intake 7. DMII Last A1C level was 6.4 in 2012. Patient does not take medication for his DM. -A1C level 8. Dyslipidemia Last lipid panel was completed 1 year ago -Lipid panel 9. Venostasis dermatitis -Chronic 10. Tobacco use -Smoking cessation encouraged PCP: Dr. Aguero at [facility] Code: FULL PPx: Eliqualexander Disposition: Stable, pending cardiology recs FMR H&P: Upper Level - Plan Date/Time: 04/23/20 1133 I, Yaquelin Elliott MD, have evaluated this patient and agree with findings/plan as outlined by risk management internship resident. Pertinent changes/additions are listed here. This is a 60yo M with significant cardiac hx who presents to the ER with a CC of chest tightness. This started around 3am and progressively got worse which prompted the patient to come to the ER. He states that he actually noticed some chest tightness when he was walking yesterday along with SOB. He denies any NVD , palpitation, sweating, abd pain. He does use a walker to ambulate. Reports he has been under great stress lately which he feels may be contributing to his chest pain. He states his pain did get better after being given aspirin. He reports he had a triple bypass surgery in 2015. He does not have a sewer pipe offbearer here. He did see Dr. Kothari and had a Bi-V placed in Apr 2018 due to atrial pacing. The patient denies any TTP of chest, no JVD noted. Morbidly obese. Swelling to LE, non pitting. ABd soft and non tender. CTAB but diffiucult to fully assess. Will admit to tele, obs. Will go ahead and consult cardiology due to significant cardiac hx. HEART score of 6. Indet trop. Several risk factors - will risk stratify with A1c and lipids. Hx of systolic HF with EF of 30% on PRAVEEN , but this was a technically difficult study due to body habitus. BNP elevated, but less than previous. Mild LIBRA, will encourage PO hydration. Continue home meds. For chronic conditions with continue home meds. Will add hydroxyzine for anxiety. COVID neg. Case discussed with Dr. Wilkinson
[2020-04-23] MEDS ORDERED: hydrOXYzine 25 MG TAB PO PRN ×2 (11:48→14:59)
[2020-04-23 12:05] VITALS: BMI 56.2
[2020-04-23 12:39] LABS: Hemoglobin A1c 7.1 % (4.0-6.0)
[2020-04-23] MEDS: Nicotine 14 MG PATCH TD SCH (14:13)
[2020-04-23 15:10] LABS: Troponin I 0.037 ng/mL (< 0.028)
[2020-04-23] MEDS ORDERED: Potassium Chloride 10 MEQ TAB PO SCH (17:00)
[2020-04-23] MEDS: Carvedilol 6.25 MG TAB PO SCH (17:50)
--- NOTE | 2020-04-23 18:21 | CON ---
DATE OF CONSULTATION: 04/23/2020 REASON FOR CONSULTATION: Chest pain. PRIMARY RN CORRECTIONS: Kg Alvarez. HISTORY OF PRESENT ILLNESS: Mr. Prather is a pleasant white gentleman, who comes to the hospital for chest pain. He states he has been under lot of stress lately with the daughter that she she is going through a lot with a grand kid of his. He states that he came in for chest pain. He got a COVID test and he tells me that as soon as they told him his COVID test was negative, his pain was pretty much gone. He says that this is nothing like what he has had before when he had heart attacks in the past, this feels completely different. On my evaluation, he is pain free and he feels much better. PAST MEDICAL HISTORY: 1. Ischemic cardiomyopathy with last EF at 30% to 35%. 2. Status post AICD. 3. History of atrial fibrillation. 4. Coronary artery disease, status post coronary artery bypass graft. 5. Hypertension. 6. Type 2 diabetes. 7. Venous stasis dermatitis. 8. Hyperlipidemia. 9. Morbid obesity. SURGICAL HISTORY: 1. Hydrocele repair. 2. Hernia repair x2. 3. Appendectomy. 4. Biventricular AICD placement. FAMILY HISTORY: Noncontributory. SOCIAL HISTORY: Smokes, continues to smoke about 5 cigarettes a day. Drinks about two 6 packs of beer per month, so about one beer every other day. Smokes marijuana occasionally, most recently just a few weeks ago. OUTPATIENT MEDICATIONS: 1. Amiodarone 200 mg half tablet a day. 2. Atorvastatin. 3. Eliquis 5 mg b.i.d. 4. Bumex. 5. Carvedilol. 6. Potassium chloride 10 mEq twice a day. 7. Aldactone 50 mg daily. 8. Hydroxyzine. PHYSICAL EXAMINATION: VITAL SIGNS: Temperature 97.2, pulse 78, respiratory rate 19, saturating 93% on room air, blood pressure 133/73. GENERAL: Awake, alert, oriented x3, in no distress. HEENT: Normocephalic and atraumatic. NECK: Supple. LUNGS: Clear. CARDIOVASCULAR: S1 and S2. No S3 or S4. No murmurs. ABDOMEN: Soft. Positive bowel sounds. Prominent. EXTREMITIES: 1+ edema with venous stasis changes. ASSESSMENT AND PLAN: 1. Atypical chest pain. 2. Indeterminate troponin. 3. Morbid obesity. 4. Systolic heart failure. PLAN: 1. We will stop potassium supplementation. He is on high dose of spironolactone and his potassium is a bit on the high side, within normal limits, but on the high side. Continue aldactone current dose, but hold potassium supplementation. 2. Continue Bumex as per home regimen. 3. Continue other medications. 4. We will not plan on doing a heart catheterization given his weight. He is close to being above the weight limit for the cath lab tech table. 5. We will add Ranexa to his regimen to see if this will help his pain. 6. Would not likely fit on the stress table either, so cannot do stress testing. 7. From the cardiac perspective, he is stable for discharge at any point. 8. He may need placement as there has been something about his house being full of bedbugs. 9. At this time, we will add Ranexa 500 mg twice a day. 10. We will follow up. Thank for the consultation. Job ID: [id number]
[2020-04-23 18:33] LABS: Amphetamine Not Detected (NotDetected); Barbiturates Screen Not Detected (NotDetected); Benzodiazepine Screen Not Detected (NotDetected); Cocaine Metabolite Screen Not Detected (NotDetected); Medtox Control Line Valid? VALID (VALID); Medtox Reader # READER 4; Methadone Not Detected (NotDetected); Methamphetamine Not Detected (NotDetected); Opiate Screen Not Detected (NotDetected); Oxycodone Screen Not Detected (NotDetected); Phencyclidine (PCP) Not Detected (NotDetected); THC/Cannabinoid Screen Not Detected (NotDetected); Tricyclic Screen Not Detected (NotDetected)
[2020-04-23] MEDS: Apixaban 5 MG TAB PO SCH (19:51)
[2020-04-23] MEDS ORDERED: Atorvastatin Calcium 40 MG TAB PO SCH (21:00)
[2020-04-24 04:36] LABS: #Eosinphils 0.2 thou/uL (0.0-0.7); #Lymphocytes 1.2 thou/uL (1.20-3.40); #Monocytes 0.6 thou/uL (0.11-0.59); #Neutrophils 3.7 thou/uL (1.40-6.50); %Basophils 0.4 % (0.0-1.0); %Eosinophils 4.2 % (0.0-10.0); %Lymphocytes 20.2 % (21.0-51.0); %Monocytes 10.5 % (0.0-10.0); %Neutrophils 64.7 % (42.0-75.0); Hemoglobin 13.9 g/dL (14.0-18.0); Mean Corpuscular HGB CONC 31.4 g/dL (32.0-36.0); Mean Corpuscular Hemoglobin 30.7 pg (27.0-31.0); Platelet Count 138 thou/uL (130-400); RBC Distribution Width 13.6 % (11.5-14.5); Red Blood Cell (RBC) Count 4.53 mill/uL (4.70-6.10); White Blood Cell (WBC) Count 5.7 thou/uL (4.8-10.8)
[2020-04-24 04:39] LABS: Anion Gap 11 mmol/L (10-20); BUN (Urea Nitrogen) 28 mg/dL (8.4-25.7); Calc. Creatinine Clearance 190 mL/min (70-130); Calcium 8.8 mg/dL (7.8-10.44); Carbon Dioxide 26 mmol/L (23-31); Cardiac Risk 4.2 (Less than 4.5); Chloride 103 mmol/L (98-107); Cholesterol 158 mg/dl (< 200 Desired); Estimated GFR-MDRD 61; Glucose 131 mg/dL (80-115); HDL Cholesterol 38 mg/dL (>60 Neg Risk); LDL Cholesterol, Calculated 103 mg/dL; Potassium 4.4 mmol/L (3.5-5.1); Sodium 136 mmol/L (136-145); Triglycerides 85 mg/dL (Less than 150)
--- NOTE | 2020-04-24 06:29 | PDOC.FM ---
- Subjective Subjective: Patient reports eye pain due to light related to poor sleeping. He denies headache, vision changes, chest pain, SOB, abdominal pain or edema. He states he is ready to go home but requests assistance with a ride. There was a concern for bed bugs in his living quarters, but he says the apartment complex has given him permission to return home. - Objective MAR Reviewed: Yes Vital Signs & Weight: Vital Signs (12 hours) Temp Pulse Resp BP Pulse Ox 04/24/20 03:45 97.8 F 60 18 119/59 L 94 L 04/23/20 19:15 97.6 F 60 18 133/75 95 Weight Weight 210.512 kg I&O: 04/22/20 04/23/20 04/24/20 06:59 06:59 06:59 Intake Total 960 Output Total 1150 Balance -190 Result Diagrams: 04/24/20 03:55 04/24/20 03:55 Phys Exam - Physical Examination Constitutional: NAD Morbidly obese HEENT: moist MMs, sclera anicteric Neck: supple, full ROM Respiratory: no wheezing, clear to auscultation bilateral Cardiovascular: RRR, no significant murmur Gastrointestinal: soft, non-tender, positive bowel sounds Musculoskeletal: pulses present, edema present Mild nonpitting edema, unchanged Neurological: non-focal, moves all 4 limbs Lymphatic: no nodes Psychiatric: normal affect, A&O x 3 Skin: normal turgor Deviation from normal: Chronic dermatitis of lower extremities Dx/Plan (1) Adult body mass index 60.0-69.9 Code(s): Z68.44 - BODY MASS INDEX (BMI) 60.0-69.9, ADULT Status: Acute (2) Tobacco abuse Code(s): Z72.0 - TOBACCO USE Status: Acute (3) Atrial fibrillation Code(s): I48.91 - UNSPECIFIED ATRIAL FIBRILLATION Status: Chronic (4) CAD (coronary artery disease) Code(s): I25.10 - ATHSCL HEART DISEASE OF [place] CORONARY ARTERY W/O ANG PCTRS Status: Chronic Qualifiers: Coronary Disease-Associated Artery/Lesion type: [place] artery [place] vs. transplanted heart: [place] heart Associated angina: without angina Qualified Code(s): I25.10 - Atherosclerotic heart disease of [place] coronary artery without angina pectoris (5) Chronic combined systolic (congestive) and diastolic (congestive) heart failure Code(s): I50.42 - CHRONIC COMBINED SYSTOLIC AND DIASTOLIC HRT FAIL Status: Chronic (6) Chronic venous stasis dermatitis of both lower extremities Code(s): I87.2 - VENOUS INSUFFICIENCY (CHRONIC) (PERIPHERAL) Status: Chronic (7) DM type 2 (diabetes mellitus, type 2) Status: Chronic Qualifiers: Diabetes mellitus manager long term care insulin use: without intermediate use (8) Dyslipidemia Code(s): E78.5 - HYPERLIPIDEMIA, UNSPECIFIED Status: Chronic (9) HTN (hypertension) Code(s): I10 - ESSENTIAL (PRIMARY) HYPERTENSION Status: Chronic Qualifiers: Hypertension type: essential hypertension Qualified Code(s): I10 - Essential (primary) hypertension (10) Ischemic cardiomyopathy Code(s): I25.5 - ISCHEMIC CARDIOMYOPATHY Status: Chronic - Plan Plan: 1. Atypical chest pain Etiology likely due to anxiety as patient reports recent stressors and noted improvement of pain after learning he's COVID negative. Trop was 0.05. EKG showed AV paced rhythm with PVCs, no ST segment changes. BNP 557.2, down from previous admission. CXR showed stable cardiomegaly. HEART score: 6. [facility] due to extensive cardiac history. Dr. Rosa, cardiology, was consulted. For risk stratification: TSH 1.42, A1C 7.1, cholesterol 158, LDL 103, HDL 38. -Nitro PRN -Hydroxyzine for anxiety -Stop KCl and begin Ranex 500mg BID per Dr. Rosa -No heart cath or stress test recommended at this time 2. CAD s/p triple bypass Bypass completed in 2016 -Continue home medications 3. CHF History of combined HF with EF 30-35% on PRAVEEN, noted to be technically difficult due to body habitus. Patient follows up with Dr. Kothari. BNP 557.2, down from previous admission. -Continue home medications 4. Afib s/p Bi-V pacemaker -Continue home medications 5. HTN BP stable. -Continue home medications 6. Ischemic cardiomyopathy -Stable cardiomegaly on CXR 7. LIBRA, resolved Creatinine 1.31, improved to 1.2. BUN 32, improved 28. Due to history of CHF, will hold off on IVF. -Continue to encourage PO fluid intake 7. DMII Patient does not take medication for his DM. A1C was 7.1. -Begin Metformin 500mg BID. -Diabetes education provided -Patient will follow up with PCP for further DM management 8. Dyslipidemia Cholesterol 158, LDL 103, HDL 38 -Continue atorvastatin 80mg daily -Encouraged heart healthy diet 9. Venostasis dermatitis -Chronic 10. Tobacco use -Smoking cessation encouraged PCP: Dr. Aguero at [facility] Code: FULL PPx: Tiffany Disposition: Stable, pending cardiology recs
[2020-04-24] MEDS ORDERED: Sodium Chloride 0.9% 10 ML ONE (07:18)
[2020-04-24] MEDS ORDERED: Amiodarone 200 MG TAB PO SCH (09:00)
[2020-04-24] MEDS ORDERED: Bumetanide 1 MG TAB PO SCH (09:00)
[2020-04-24] MEDS ORDERED: Spironolactone 25 MG TAB PO SCH (09:00)
[2020-04-24] MEDS ORDERED: metFORMIN 500 MG TAB PO SCH ×2 (10:00→17:00)
[2020-04-24] MEDS: Apixaban 5 MG TAB PO SCH (10:02)
[2020-04-24] MEDS: Carvedilol 6.25 MG TAB PO SCH ×2 (10:03→18:19)
[2020-04-24] MEDS ORDERED: metFORMIN XR 500 MG TAB PO SCH (10:15)
--- NOTE | 2020-04-24 12:51 | PRG ---
DATE OF SERVICE: 04/24/2020 Mr. Prather is very talkative this morning. He is sitting in his bedside chair in good spirits, having no chest discomfort. He was seen in consultation by Dr. Rosa of Cardiology Service. He has recommended that we add Ranexa for angina control. He can be discharged afterwards for followup as an outpatient. His troponins have been leveled at 0.04 to 0.037. He has had no further chest discomfort. He will be discharged as stated on Ranexa. Job ID: [id number]
[2020-04-24] MEDS: Nicotine 14 MG PATCH TD SCH (13:29)
--- NOTE | 2020-04-24 18:16 | PDOC.CPN ---
- Subjective Date: 04/24/20 Time: 18:15 Interval history: No new issues. No more chest pain since yesterday. - Review of Systems General: denies: fever/chills, weight/appetite/sleep changes, night sweats, fatigue Respiratory: denies: cough, congestion, shortness of breath, exercise intolerance Cardiovascular: denies: chest pain, palpitation, edema, paroxysmal nocturnal dyspnea, orthopnea Gastrointestinal: denies: nausea, vomiting, diarrhea, constipation, abd pain, GI bleeding Musculoskeletal: denies: pain, tenderness, stiffness, swelling, arthritis/ arthralgias Neurological: denies: numbness, syncope, seizure, weakness - Objective Allergies/Adverse Reactions: Allergies Allergy/AdvReac Type Severity Reaction Status Date / Time No Known Allergies Allergy Verified 04/23/20 12:07 Visit Medications: Current Medications Acetaminophen (Tylenol) 650 mg PO Q4H PRN PRN Reason: Headache/Fever/Mild Pain (1-3) Amiodarone HCl (Cordarone) 100 mg PO DAILY [facility] Last Admin: 04/24/20 10:02 Dose: 100 mg Apixaban (Eliquis) 5 mg PO BID [facility] Last Admin: 04/24/20 10:02 Dose: 5 mg Atorvastatin Calcium (Lipitor) 80 mg PO HS [facility] Last Admin: 04/23/20 19:51 Dose: 80 mg Bumetanide (Bumex) 2 mg PO DAILY [facility] Last Admin: 04/24/20 10:02 Dose: 2 mg [facility] ([facility]) [facility] Last Admin: 04/24/20 10:03 Dose: 6.25 mg Hydroxyzine HCl (Atarax) 25 mg PO Q6H PRN PRN Reason: Anxiety Hydroxyzine HCl (Atarax) 50 mg PO HS PRN PRN Reason: Insomnia Last Admin: 04/23/20 21:26 Dose: 50 mg Metformin HCl (Glucophage Xr) 500 mg PO QAM[facility] Nicotine (Nicoderm Patch) 14 mg TD 1300 [facility] Last Admin: 04/24/20 13:29 Dose: Not Given Nitroglycerin (Nitrostat) 0.4 mg PO Q5MIN PRN PRN Reason: Chest Pain Ondansetron HCl (Zofran Odt) 4 mg PO Q6H PRN PRN Reason: Nausea/Vomiting Potassium Chloride (Klor-Con 10) 10 meq PO DAILY [facility] Ranolazine (Ranexa) 500 mg PO BID [facility] Last Admin: 04/24/20 10:02 Dose: 500 mg Spironolactone (Aldactone) 50 mg PO DAILY [facility] Last Admin: 04/24/20 10:02 Dose: 50 mg Vital Signs & Weight: Vital Signs Temp Pulse Resp BP BP Pulse Ox 04/24/20 12:00 62 16 124/78 04/24/20 10:03 132/81 04/24/20 09:00 98.4 F 60 18 132/81 95 Weight 464 lb 1.6 oz - Physical Exam General: alert & oriented x3 HEENT: mucus membranes moist Neck: supple neck Cardiac: regular rate and rhythm Lungs: clear to auscultation Neuro: grossly intact Abdomen: active bowel sounds Extremities: 1+ LE edema Skin: clear Musculoskeletal: no pain - Labs Result Diagrams: 04/24/20 03:55 04/24/20 03:55 Troponin/CKMB CK-MB (CK-2) 1.2 ng/mL (0-6.6) 04/23/20 08:25 Troponin I 0.037 ng/mL (< 0.028) H 04/23/20 14:36 - Telemetry Sinus rhythms and dysrhythmias: other (AV paced.) - Assessment/Plan Assessment/Plan: 1. Stable chronic angina. 2. CAD. 3. Morbid obesity. BMI 56 4. Chronic systolic heart failure. PLAN: - Added Ranexa. - Continue other meds for now. - May discharge home any time from cardiac perspective. - Follow up with Dr. Alvarez/Farida in 2-4 weeks.
[2020-04-24 18:21] VITALS: BP 129/78
[2020-04-24 18:56] VITALS: TEMP 98.2
--- NOTE | 2020-04-25 05:28 | DIS ---
DATE OF ADMISSION: 04/23/2020 DATE OF DISCHARGE: 04/24/2020 PRIMARY CARE PHYSICIAN: Reilly Aguero MD RESIDENT: Camille Jackson MD ADMITTING ATTENDING: Rupesh Wilkinson MD DISCHARGE ATTENDING: Rupesh Wilkinson MD CONSULTS: Dr. Rosa (Cardiology). PROCEDURES: None. PRIMARY DIAGNOSIS: Stable chronic angina. SECONDARY DIAGNOSES: Coronary artery disease status post triple bypass, chronic systolic heart failure, atrial fibrillation status post biventricular pacemaker, hypertension, ischemic cardiomyopathy, acute kidney injury now resolved, type 2 diabetes, dyslipidemia, venous stasis dermatitis, and tobacco use. DISCHARGE MEDICATIONS: 1. Amiodarone 100 mg p.o. daily. 2. Atorvastatin 80 mg p.o. daily. 3. Carvedilol 6.25 mg p.o. b.i.d. 4. Bumetanide 2 mg p.o. daily. 5. Hydroxyzine HCL 50 mg p.o. at bedtime. 6. Spironolactone 50 mg p.o. daily. 7. Eliquis 15 mg p.o. b.i.d. 8. Metformin XR 500 mg p.o. b.i.d. 9. Potassium chloride 10 mEq p.o. daily. 10. Ranexa 500 mg p.o. b.i.d. DISCONTINUED MEDICATIONS: Potassium chloride 20 mEq p.o. daily. HISTORY OF PRESENT ILLNESS: The patient is a 60-year-old male, who presented to the ED via EMS with complaints of sternal chest pain since 3 a.m. The patient reported stressors in his life and noted that his pain improved after hearing he was COVID negative. Troponin was 0.05. EKG showed no ST-segment elevations. The patient was admitted for observations due to extensive cardiac history. Dr. Rosa, Cardiology, was consulted. He recommended the patient be placed on Ranexa 500 mg b.i.d. He also recommended reducing the potassium chloride dose to 10 mEq daily. No heart catheterization or stress test was recommended at this time. During admission, an A1c was obtained, which was 7.1. He was placed on metformin extended release 500 mg b.i.d. due to diarrhea previously with metformin 500mg b.i.d. He will follow up with his PCP, Dr. Aguero, for further diabetes management. Upon admission, the patient's creatinine was noted to be mildly elevated from baseline. It returned to baseline after increased PO intake. The patient was deemed stable for discharge home on 04/24/2020. DISPOSITION: Stable. DISCHARGE INSTRUCTIONS: Location, home. Diet, heart healthy. Activity, as tolerated. Follow up with Dr. Aguero (PCP) within 1 week. Follow up with Dr. Alvarez (Cardiology) within 2 to 3 weeks. Job ID: [id number] MTDD
[2020-04-25] MEDS ORDERED: metFORMIN XR 500 MG TAB PO SCH (08:00)
[2020-04-25] MEDS ORDERED: Potassium Chloride 10 MEQ TAB PO SCH (09:00)
== END 2020-04-24 20:00 | disposition home or self-care (01) ==
LOC: ERS 07:50 → 2NO 09:42
PROVIDERS: ADMIT Family Medicine; ATTEND Family Medicine
DX: I25.118 Atherosclerotic heart disease of native coronary artery with other forms of angina pectoris (principal); I11.0 Hypertensive heart disease with heart failure; I50.42 Chronic combined systolic (congestive) and diastolic (congestive) heart failure; F17.210 Nicotine dependence, cigarettes, uncomplicated; I25.5 Ischemic cardiomyopathy; E11.9 Type 2 diabetes mellitus without complications; E78.5 Hyperlipidemia, unspecified; I48.20 Chronic atrial fibrillation, unspecified; N17.9 Acute kidney failure, unspecified; I87.2 Venous insufficiency (chronic) (peripheral); E66.01 Morbid (severe) obesity due to excess calories; Z68.43 Body mass index [BMI] 50.0-59.9, adult; Z79.01 Long term (current) use of anticoagulants; Z79.84 Long term (current) use of oral hypoglycemic drugs; Z79.899 Other long term (current) drug therapy; Z95.0 Presence of cardiac pacemaker; Z95.1 Presence of aortocoronary bypass graft
CPT/HCPCS: 71045; 80048; 80061; 80306; 82553; 83036; 83605; 83880; 84484 ×2; 85025; 93005; 97139 ×3; 99285; G0378 ×3; U0002; 36415; 80053; 84443

== ENCOUNTER 2020-10-28 22:38 | Observation (INO) | payer MEDICARE ==
[2020-10-28 23:32] LABS: Mean Corpuscular HGB CONC 33.9 g/dL (32.0-36.0); Mean Corpuscular Volume 97.6 fL (78.0-98.0); Mean Platelet Volume 9.5 fL (7.4-10.4); Platelet Count 145 thou/uL (130-400); RBC Distribution Width 13.4 % (11.5-14.5); Red Blood Cell (RBC) Count 4.53 mill/uL (4.70-6.10)
--- NOTE | 2020-10-28 23:44 | RAD ---
EXAM: CHEST ONE VIEW HISTORY: Dyspnea. COMPARISON: 04/23/2020 FINDINGS: Cardiac silhouette remains enlarged. Median sternotomy wires are again seen. Multilead left subclavia n AICD device is again noted in place. Pulmonary vasculature is at the upper limits of normal. No consolidation or pleural fluid is identified. Chest is stable compared to prior study. IMPRESSION: Stable cardiomegaly and postoperative changes of the chest. Pulmonary vasculature is at the upper lugo its of normal to borderline increased.
[2020-10-28 23:46] LABS: White Blood Cell (WBC) Count 5.7 thou/uL (4.8-10.8)
[2020-10-28 23:48] LABS: Band 1 % (5-11); Eosinophils 2 % (0-10); Lymphocytes 18 % (21-51); MDiff Complete? YES; Monocytes 4 % (0-10); Neutrophil 74 % (42-75); Reactive Lymphocytes 1 % (0-10)
[2020-10-28 23:49] LABS: ALT (SGPT) 16 U/L (8-55); AST (SGOT) 21 U/L (5-34); Albumin 3.7 g/dL (3.4-4.8); Alkaline Phosphatase 94 U/L (40-110); Anion Gap 13 mmol/L (10-20); BUN (Urea Nitrogen) 18 mg/dL (8.4-25.7); Bilirubin, Total 0.6 mg/dL (0.2-1.2); Calc. Creatinine Clearance 0 mL/min (70-130); Carbon Dioxide 28 mmol/L (23-31); Chloride 99 mmol/L (98-107); Globulin 4.4 g/dL (2.4-3.5); Glucose 225 mg/dL (80-115); Potassium 3.4 mmol/L (3.5-5.1); Protein, Total 8.1 g/dL (5.8-8.1); Sodium 137 mmol/L (136-145)
[2020-10-29] MEDS ORDERED: Furosemide 40 MG/4 ML VIAL ONE (00:41)
--- NOTE | 2020-10-29 01:14 | PDOC.FPRHP ---
- History of Present Illness Chief Complaint: SOB History of Present Illness: Pt is a 60 yo male w/ hx of CAD s/p CABG, CHF, DM2 and morbid obesity who presents with SOB. This evening around 9pm he was eating some popcorn chicken when suddenly he became short of breath. He thought he was having an anaphylactic reaction to the food. He says he had been at his baseline prior to this. He had his home health nurse visit him today and told him his BP was "a little low" today but otherwise all vitals were normal. He admits to not taking his meds today due to being busy with PT and HH nurse. He uses a wheelchair at home to get around. In ED O2 sats were mid 80s. Placed on 2L nasal cannula with improvement. ED Course: 40mg IV lasix - Allergies/Adverse Reactions Allergies Allergy/AdvReac Type Severity Reaction Status Date / Time No Known Allergies Allergy Verified 04/23/20 12:07 - Home Medications Medication Instructions Recorded Confirmed Type Amiodarone [Cordarone] 0.5 tab PO DAILY 05/09/19 04/23/20 History Atorvastatin Calcium [Lipitor] 1 tab PO DAILY 05/09/19 04/23/20 History Apixaban [Eliquis] 5 mg PO BID #60 tab 05/30/19 04/23/20 Rx Bumetanide 1 tab PO DAILY 04/23/20 04/23/20 History Carvedilol 1 tab PO BID-WM 04/23/20 04/23/20 History Spironolactone [Aldactone] 50 mg PO DAILY 04/23/20 04/23/20 History hydrOXYzine HCl [Hydroxyzine HCl] 1 tab PO HS PRN 04/23/20 04/23/20 History Potassium Chloride [Klor-Con 10] 10 meq PO DAILY 30 Days #30 tab 04/24/20 Rx Ranolazine [Ranexa] 500 mg PO BID 30 Days #60 tab 04/24/20 Rx metFORMIN XR [Glucophage XR] 500 mg PO BID 30 Days #60 tab 04/24/20 Rx - History PMHx: CAD s/p CABG, a fib, CHF, HTN, DM2, obesity, HLD PSHx: pacemaker, hernia, appendectomy FHx: Mother - Alzheimer's disease, Sibling - [place] Social: Smokes 10 cigarettes per day. Rarely drinks alcohol. No drug use. Lives at home by himself. - Review of Systems General: denies: fever/chills, weight/appetite/sleep changes Eyes: denies: vision changes ENT: denies: nasal congestion, rhinorrhea Respiratory: reports: shortness of breath. denies: cough, congestion Cardiovascular: denies: chest pain, edema Gastrointestinal: denies: nausea, vomiting Genitourinary: denies: dysuria Skin: denies: rashes Musculoskeletal: denies: pain, tenderness Neurological: denies: numbness, syncope - Vital signs BP: 139/67, Pulse: 70, Resp: 22, Pain: 7, O2 sat: 96 on (2L Oxygen), T 97.6, Wt 145 kg - Physical Exam Constitutional: NAD, awake, alert and oriented -Constitutional: morbidly obese HEENT: normocephalic and atraumatic, grossly normal vision, grossly normal hearing Neck: supple, FROM -Heart: distant heart sounds, b/l LE edema Lungs: CTAB, no respiratory distress Abdomen: soft Musculoskeletal: ROM grossly normal Neurological: no focal deficit -Skin: chronic skin changes of LE: discoloration, dry, flaky skin Heme/Lymphatic: no unusual bruising or bleeding -Psychiatric: odd affect, exhibits delusions of grandiosity FMR H&P: Results - Labs Result Diagrams: 10/28/20 23:18 10/28/20 23:18 Lab results: WBC 5.7 thou/uL (4.8-10.8) 10/28/20 23:18 Hgb 15.0 g/dL (14.0-18.0) 10/28/20 23:18 Hct 44.2 % (42.0-52.0) 10/28/20 23:18 MCV 97.6 fL (78.0-98.0) 10/28/20 23:18 Plt Count 145 thou/uL (130-400) 10/28/20 23:18 Band Neuts % (Manual) 1 % (5-11) L 10/28/20 23:18 Sodium 137 mmol/L (136-145) 10/28/20 23:18 Potassium 3.4 mmol/L (3.5-5.1) L 10/28/20 23:18 Chloride 99 mmol/L (98-107) 10/28/20 23:18 Carbon Dioxide 28 mmol/L (23-31) 10/28/20 23:18 BUN 18 mg/dL (8.4-25.7) 10/28/20 23:18 Creatinine 1.24 mg/dL (0.7-1.3) 10/28/20 23:18 Glucose 225 mg/dL (80-115) H 10/28/20 23:18 Calcium 9.0 mg/dL (7.8-10.44) 10/28/20 23:18 Total Bilirubin 0.6 mg/dL (0.2-1.2) 10/28/20 23:18 AST 21 U/L (5-34) 10/28/20 23:18 ALT 16 U/L (8-55) 10/28/20 23:18 Alkaline Phosphatase 94 U/L (40-110) 10/28/20 23:18 B-Natriuretic Peptide 254.3 pg/mL (0-100) H 10/28/20 23:17 Serum Total Protein 8.1 g/dL (5.8-8.1) 10/28/20 23:18 Albumin 3.7 g/dL (3.4-4.8) 10/28/20 23:18 - EKG Interpretation EKG: reviewed: dual chamber paced rhythm - Radiology Interpretation Chest x-ray Status: image reviewed by me, report reviewed by me FMR H&P: A/P - Plan #AHRF 2/2 CHF exac vs PE vs Equipment malfunction -sudden onset SOB, did not take medications today -d dimer elevated, pending CTA, pt reports compliance with home eliquis -BNP 253, this is lower than previous hospital records -CXR: stable cardiomegaly -echo 04/2019: EF 30%, LV enlargement with hypokinesis -s/p 40mg IV lasix in ED -upon further evaluation, it was noted that pulse ox was not working and when replaced, O2 sats were normal without oxygen -strict I/Os #CAD s/p triple bypass -aware -Continue home medications #Afib s/p Bi-V pacemaker -ekg normal rate, dual paced -Continue home medications # HTN -normotensive -Continue home medications #DMII -A1c in March 2020 was 7.1 -continue home meds -SSI, accuchecks ACHS #HLD -continue home meds #Tobacco use -encourage cessation PCP: Dr. Aguero at [facility] Code: FULL PPx: Eliquis Disposition: Admit tele, pending CTA FMR H&P: Upper Level - Plan Date/Time: 10/29/20 0109 I, Alicia Ibrahim, have evaluated this patient and agree with findings/plan as outlined by chemist intern resident. Pertinent changes/additions are listed here. 60yoM w/ hx of CAD s/p 3v CABG, HFrEF, biventricular pacer, afib, DM presents with acute onset shortness of breath 30 min prior to ED arrival with increased work of breathing. Denies chest pain or cough. States he has had similar symptoms in the past, prior to his CABG. He presented with tachypnea, O2 sat of 91%, placed on 2L NC. ER ordered lasix 40mg BP: 139/67, MAP: 91, Pulse: 70, Resp: 22, Pain: 7, O2 sat: 96 on (2L Oxygen) PE: Gen: NAD Heart: RRR Lungs: limited exam d/t body habitus, no wheezing, no increased work of breathing. Abd: soft, nontender Ext: chronic venous stasis changes with edema BLE Acute hypoxic respiratory failure 2/2 mild HFrEF exac vs possible PE - Now satting well on 2L - Trop in ED negative, 0.028 - BNP was 254 which is the lowest it has been in years and CXR with stable cardiomegaly and some prominent pulm vasculature, but overall no major change co mpared to prior. He did skip home diuretic dose this am. D-dimer elevated in ED with CTA pending. He is on home eliquis and reports compliance. No symptoms or labs consistent with respiratory infection. Chronic medical problems per chemist intern note, include HFrEF s/p AICD, hx afib, CAD s/p CABG, HTN, DM2, HLD, morbid obesity, venous stasis Code: FULL Prophylaxis: Home Eliquis Fluids: SL Diet: HH/CC PCP: JOSE ANTONIO-Laci Attending: Disposition: admit to telemetry
[2020-10-29] MEDS ORDERED: HumaLOG 300 UNITS/3 ML VIAL SC PRN ×2 (01:16)
[2020-10-29] MEDS ORDERED: Ondansetron PF 4 MG/2 ML Vial IVP PRN (01:16)
[2020-10-29] MEDS ORDERED: Acetaminophen 325 MG TAB PO PRN (01:16)
[2020-10-29] MEDS ORDERED: Dextrose 50% Abboject 50 ML SYRINGE SLOW IVP PRN (01:16)
[2020-10-29] MEDS ORDERED: Dextrose 5% in Water 1,000 ML IV PRN (01:16)
[2020-10-29] MEDS ORDERED: Ondansetron ODT 4 MG TAB PO PRN (01:16)
[2020-10-29 02:58] LABS: Troponin I 0.021 ng/mL (< 0.028)
[2020-10-29 05:30] LABS: SARS-CoV-2 PCR by NAA Not Detected (NotDetected)
[2020-10-29 05:32] LABS: Troponin I 0.019 ng/mL (< 0.028)
--- NOTE | 2020-10-29 07:34 | CT ---
PRELIMINARY REPORT/[facility]/EMERGENCY AFTER HOURS PROCEDURE: EXAM: CTA Chest with Intravenous Contrast CLINICAL HISTORY: 60yoM w/ hx of CAD s/p 3v CABG and pacemaker placement, DM on metformin, and CHF pr esents with acute onset shortness of breath with increased work of breathing. Denies chest pain or cough. TECHNIQUE: Axial CTA images of the chest with intravenous contrast. Three-dimensional MIP/volume rend ered reformations were performed. CONTRAST: With; 70ML ISOVUE 370 COMPARISON: None provided. FINDINGS: PULMONARY ARTERIES There is no evidence of pulmonary embolism. AORTA The aorta is unremarkable. LUNGS There is mild right basilar linear atelectasis or scarring. PLEURAL SPACES No pleural effusion. No pneumothorax. HEART AND MEDIASTINUM The patient has had prior median sternotomy. Heart is enlarged. Calcified coronary atherosclerosis is noted. LYMPH NODES No lymphadenopathy. BONES No focal osseous abnormality or acute fracture. CHEST WALL AND UPPER ABDOMEN Images through the upper abdomen are unremarkable. The chest wall is unr emarkable. IMPRESSION: 1. No CT evidence of acute cardiopulmonary process. 2. Mild right basilar linear atelectasis or scarring. 3. Cardiomegaly. Calcified coronary atherosclerosis. Prior median sternotomy. ELECTRONICALLY SIGNED BY: Dae Ruiz MD Oct 29, 2020 5:32:30 AM [employer] FINAL REPORT CT ANGIOGRAM OF THE CHEST: HISTORY: Dizziness. COMPARISON: None. TECHNIQUE: CT angiogram of the chest is performed in the axial plane. Three-dimensional reformatted i mages are submitted for interpretation. FINDINGS: Mediastinum: No mass, lymphadenopathy or hematoma. Heart: Cardiomegaly. Coronary disease. Aorta: No aneurysm or dissection Upper solid abdominal viscera: No abnormality enhancement. Trachea and central bronchi: Patent. Pleural spaces: No effusion. Lung parenchyma: No masses or consolidation. Minimal scarring/subsegmental atelectasis in the lower l obe. Pneumothorax: None. Osseous structures: No lytic or blastic lesions. Pulmonary arteries: Adequate contrast opacification pulmonary arterial system to the level of segment al arteries. No filling defect to suggest pulmonary embolism. IMPRESSION: 1. This report is in agreement with initial report by [facility]. 2. No evidence of pulmonary artery embolism to the level of the segmental arteries. Transcribed Date/Time: 10/29/2020 8:02 AM
[2020-10-29] MEDS ORDERED: Apixaban 5 MG TAB PO SCH (09:00)
[2020-10-29] MEDS ORDERED: Iopamidol-370 76% 500 ML 1 ML ONE (10:41)
[2020-10-29 11:14] VITALS: TEMP 97.9
--- NOTE | 2020-10-31 14:00 | DIS ---
DATE OF ADMISSION: 10/29/2020 DATE OF DISCHARGE: 10/29/2020 ADMITTING ATTENDING: Marika Valentin MD DISCHARGE ATTENDING: Gerardo Diaz MD RESIDENT: Yolie Munoz MD CONSULTS: None. PROCEDURES: None. PRIMARY DIAGNOSIS: Shortness of breath. SECONDARY DIAGNOSES: Congestive heart failure with reduced ejection fraction, coronary artery disease, atrial fibrillation, history of pacemaker, hypertension, diabetes, hyperlipidemia, and tobacco abuse. DISCHARGE MEDICATIONS: 1. Spironolactone. 2. Bumetanide. 3. Carvedilol. 4. Amiodarone. 5. Hydroxyzine. 6. Atorvastatin. 7. Eliquis. 8. Metformin. 9. Ranexa. DISCONTINUED MEDICATIONS: None. HISTORY OF PRESENT ILLNESS/HOSPITAL COURSE: Mr. Prather is a 60-year-old male, who presented to the ER for acute onset of dyspnea that started while he was eating chicken nuggets for dinner. He was found to be hypoxic upon EMS arrival to his home; however, en route to the hospital, he began feeling less short of breath after they put the oxygen on. In the ER, oxygen was taken off and his pulse ox was measured to be in the 80s and he was placed back on the oxygen by nasal cannula. However, it was found that the pulse oximeter was reading incorrectly and once it was switched to a new pulse oximeter, he was no longer hypoxic on room air. His symptoms had significantly improved. His BNP was not elevated at 254. His troponins were negative and downtrending. His labs were otherwise unremarkable. He did have an elevated D-dimer, which led to obtaining a CTA, which showed no evidence of pulmonary emboli. He was able to be discharged home after a brief stay in observation. DISPOSITION: Stable. DISCHARGE INSTRUCTIONS: 1. Location: Home. 2. Diet: Heart healthy. 3. Activity: Ad danielle. 4. Followup: With primary care physician within 1 week. Job ID: [id number] MTDD
--- NOTE | 2020-11-02 21:19 | EKG ---
Test Reason : Blood Pressure : / mmHG Vent. Rate : 069 BPM Atrial Rate : 024 BPM P-R Int : 000 ms QRS Dur : 004 ms QT Int : 392 ms P-R-T Axes : -84 000 -33 degrees QTc Int : 420 ms AV sequential or dual chamber electronic pacemaker Confirmed by JUAN QUEZADA ([id number]), scientific editor EVETTE ESTEVEZ ([id number]) on 11/02/2020 9:18:41 PM Referred By: Confirmed By:JUAN QUEZADA
== END 2020-10-29 11:06 | disposition home or self-care (01) ==
LOC: ERS 22:38 → ERHOLD 10-29 00:20 → INTOOBSV 10-29 01:24
PROVIDERS: ADMIT Student in an Organized Health Care Education/Training Program; ATTEND Student in an Organized Health Care Education/Training Program
DX: J96.01 Acute respiratory failure with hypoxia (principal); I11.0 Hypertensive heart disease with heart failure; I50.20 Unspecified systolic (congestive) heart failure; I25.10 Atherosclerotic heart disease of native coronary artery without angina pectoris; I48.91 Unspecified atrial fibrillation; E11.9 Type 2 diabetes mellitus without complications; E78.5 Hyperlipidemia, unspecified; F17.210 Nicotine dependence, cigarettes, uncomplicated; E66.01 Morbid (severe) obesity due to excess calories; Z79.01 Long term (current) use of anticoagulants; Z79.84 Long term (current) use of oral hypoglycemic drugs; Z79.899 Other long term (current) drug therapy; Z95.0 Presence of cardiac pacemaker; Z95.1 Presence of aortocoronary bypass graft; Z20.822 Contact with and (suspected) exposure to COVID-19
CPT/HCPCS: 71045; 71275; 80053; 83880; 84484 ×3; 85025; 85379; 93005; 96374; 99285; U0003; U0005; 36415; 87635; J1940; Q9967

== ENCOUNTER 2020-11-27 15:58 | Emergency (ER) | payer MEDICARE ==
[2020-11-27 17:18] LABS: #Eosinphils 0.1 thou/uL (0.0-0.7); #Monocytes 0.4 thou/uL (0.11-0.59); #Neutrophils 4.1 thou/uL (1.40-6.50); %Basophils 0.5 % (0.0-1.0); %Eosinophils 1.9 % (0.0-10.0); %Lymphocytes 18.4 % (21.0-51.0); %Monocytes 7.5 % (0.0-10.0); %Neutrophils 71.8 % (42.0-75.0); Hemoglobin 14.5 g/dL (14.0-18.0); Mean Corpuscular HGB CONC 32.2 g/dL (32.0-36.0); Mean Corpuscular Hemoglobin 31.8 pg (27.0-31.0); Mean Corpuscular Volume 98.9 fL (78.0-98.0); Mean Platelet Volume 8.4 fL (7.4-10.4); Platelet Count 142 thou/uL (130-400); RBC Distribution Width 13.5 % (11.5-14.5); Red Blood Cell (RBC) Count 4.55 mill/uL (4.70-6.10); White Blood Cell (WBC) Count 5.7 thou/uL (4.8-10.8)
[2020-11-27 17:47] LABS: ALT (SGPT) 14 U/L (8-55); AST (SGOT) 22 U/L (5-34); Albumin 3.6 g/dL (3.4-4.8); Alkaline Phosphatase 90 U/L (40-110); Anion Gap 14 mmol/L (10-20); BUN (Urea Nitrogen) 17 mg/dL (8.4-25.7); Bilirubin, Total 0.7 mg/dL (0.2-1.2); Calc. Creatinine Clearance 0 mL/min (70-130); Calcium 9.1 mg/dL (7.8-10.44); Carbon Dioxide 27 mmol/L (23-31); Chloride 101 mmol/L (98-107); Globulin 4.3 g/dL (2.4-3.5); Glucose 130 mg/dL (80-115); Potassium 3.6 mmol/L (3.5-5.1); Protein, Total 7.9 g/dL (5.8-8.1); Sodium 138 mmol/L (136-145)
== END 2020-11-27 19:47 | disposition home or self-care (01) ==
LOC: ERS 15:58
DX: L89.302 Pressure ulcer of unspecified buttock, stage 2 (principal); E66.01 Morbid (severe) obesity due to excess calories; I25.10 Atherosclerotic heart disease of native coronary artery without angina pectoris; I50.9 Heart failure, unspecified; I25.2 Old myocardial infarction; F17.210 Nicotine dependence, cigarettes, uncomplicated; Z79.01 Long term (current) use of anticoagulants; Z79.899 Other long term (current) drug therapy
CPT/HCPCS: 36415; 80053; 85025; 99283

== ENCOUNTER 2021-01-09 13:41 | Emergency (ER) | payer MEDICARE ==
[2021-01-09] MEDS ORDERED: Ketorolac Tromethamine 30 MG/ML VIAL ONE (14:40)
[2021-01-09 15:01] LABS: #Eosinphils 0.1 thou/uL (0.0-0.7); #Lymphocytes 0.9 thou/uL (1.20-3.40); #Monocytes 0.7 thou/uL (0.11-0.59); #Neutrophils 7.3 thou/uL (1.40-6.50); %Basophils 0.2 % (0.0-1.0); %Eosinophils 0.9 % (0.0-10.0); %Monocytes 8.1 % (0.0-10.0); %Neutrophils 80.8 % (42.0-75.0); Hemoglobin 14.9 g/dL (14.0-18.0); Mean Corpuscular Hemoglobin 30.7 pg (27.0-31.0); Mean Corpuscular Volume 95.8 fL (78.0-98.0); Mean Platelet Volume 8.2 fL (7.4-10.4); Platelet Count 150 thou/uL (130-400); RBC Distribution Width 13.7 % (11.5-14.5); Red Blood Cell (RBC) Count 4.86 mill/uL (4.70-6.10)
[2021-01-09 15:24] LABS: ALT (SGPT) 14 U/L (8-55); AST (SGOT) 29 U/L (5-34); Albumin 3.8 g/dL (3.4-4.8); Alkaline Phosphatase 96 U/L (40-110); Anion Gap 15 mmol/L (10-20); BUN (Urea Nitrogen) 25 mg/dL (8.4-25.7); Bilirubin, Total 1.2 mg/dL (0.2-1.2); Calc. Creatinine Clearance 0 mL/min (70-130); Calcium 9.3 mg/dL (7.8-10.44); Carbon Dioxide 29 mmol/L (23-31); Chloride 96 mmol/L (98-107); Globulin 4.9 g/dL (2.4-3.5); Glucose 154 mg/dL (80-115); Potassium 3.4 mmol/L (3.5-5.1); Protein, Total 8.7 g/dL (5.8-8.1); Sodium 137 mmol/L (136-145); Uric Acid 13.1 mg/dL (3.5-7.2)
[2021-01-09] MEDS ORDERED: traMADol HCl 50 MG TAB ONE (17:04)
== END 2021-01-09 17:08 | disposition home or self-care (01) ==
LOC: ERS 13:41
DX: M25.571 Pain in right ankle and joints of right foot (principal); E66.01 Morbid (severe) obesity due to excess calories; I50.9 Heart failure, unspecified; I25.2 Old myocardial infarction; F17.210 Nicotine dependence, cigarettes, uncomplicated; Z95.1 Presence of aortocoronary bypass graft; Z79.01 Long term (current) use of anticoagulants; Z79.899 Other long term (current) drug therapy
CPT/HCPCS: 36415; 80053; 84550; 85025; 96372; J1885

== ENCOUNTER 2021-02-25 14:25 | Emergency (ER) | payer MEDICARE ==
[2021-02-25] MEDS ORDERED: methylPREDNISolone Sod Succ/PF 125 MG/2 ML VIAL ONE (15:31)
== END 2021-02-25 16:20 | disposition home or self-care (01) ==
LOC: ERS 14:25
DX: M54.42 Lumbago with sciatica, left side (principal); L98.419 Non-pressure chronic ulcer of buttock with unspecified severity; I25.10 Atherosclerotic heart disease of native coronary artery without angina pectoris; I50.9 Heart failure, unspecified; I25.2 Old myocardial infarction; F17.210 Nicotine dependence, cigarettes, uncomplicated; Z79.899 Other long term (current) drug therapy; Z79.01 Long term (current) use of anticoagulants; W18.30XA Fall on same level, unspecified, initial encounter
CPT/HCPCS: 96372; 99283; J2930

== ENCOUNTER 2021-03-15 19:02 | Emergency (ER) | payer MEDICARE ==
[2021-03-15] MEDS ORDERED: Morphine 4 MG/ML VIAL ONE (23:18)
== END 2021-03-16 00:02 ==
LOC: ERS 19:02
DX: M54.42 Lumbago with sciatica, left side (principal); I25.10 Atherosclerotic heart disease of native coronary artery without angina pectoris; I50.9 Heart failure, unspecified; I25.2 Old myocardial infarction; F17.210 Nicotine dependence, cigarettes, uncomplicated; Z79.01 Long term (current) use of anticoagulants; Z79.52 Long term (current) use of systemic steroids; Z79.899 Other long term (current) drug therapy
CPT/HCPCS: 96372; 99282; J2270

== ENCOUNTER 2021-04-24 06:03 | Inpatient (IN) | payer MEDICARE ==
[2021-04-24 06:56] LABS: #Eosinphils 0.1 thou/uL (0.0-0.7); #Lymphocytes 1.1 thou/uL (1.20-3.40); #Monocytes 0.6 thou/uL (0.11-0.59); #Neutrophils 4.6 thou/uL (1.40-6.50); %Basophils 0.6 % (0.0-1.0); %Eosinophils 1.5 % (0.0-10.0); %Lymphocytes 17.1 % (21.0-51.0); %Monocytes 9.2 % (0.0-10.0); %Neutrophils 71.5 % (42.0-75.0); Mean Corpuscular HGB CONC 33.1 g/dL (32.0-36.0); Mean Corpuscular Hemoglobin 31.8 pg (27.0-31.0); Mean Corpuscular Volume 96.2 fL (78.0-98.0); Mean Platelet Volume 8.7 fL (7.4-10.4); Platelet Count 123 thou/uL (130-400); RBC Distribution Width 13.9 % (11.5-14.5); Red Blood Cell (RBC) Count 5.33 mill/uL (4.70-6.10); White Blood Cell (WBC) Count 6.4 thou/uL (4.8-10.8)
[2021-04-24] MEDS ORDERED: Meclizine HCl 25 MG TAB ONE (07:18)
[2021-04-24] MEDS ORDERED: Acetaminophen 500 MG TAB ONE (07:18)
[2021-04-24 07:19] LABS: ALT (SGPT) 25 U/L (8-55); AST (SGOT) 30 U/L (5-34); Albumin 3.8 g/dL (3.4-4.8); Alkaline Phosphatase 86 U/L (40-110); Anion Gap 15 mmol/L (10-20); BUN (Urea Nitrogen) 28 mg/dL (8.4-25.7); Bilirubin, Total 1.2 mg/dL (0.2-1.2); Calc. Creatinine Clearance 0 mL/min (70-130); Calcium 9.6 mg/dL (7.8-10.44); Carbon Dioxide 27 mmol/L (23-31); Chloride 96 mmol/L (98-107); Globulin 4.1 g/dL (2.4-3.5); Glucose 163 mg/dL (80-115); Lipase 17 U/L (8-78); Potassium 3.2 mmol/L (3.5-5.1); Protein, Total 7.9 g/dL (5.8-8.1); Sodium 135 mmol/L (136-145)
[2021-04-24 09:28] LABS: SARS-CoV-2 NAA Rapid Test Not Detected (NotDetected)
[2021-04-24] MEDS ORDERED: Dextrose 5% in Water 1,000 ML IV PRN (09:39)
[2021-04-24] MEDS ORDERED: Dextrose 50% Abboject 50 ML SYRINGE SLOW IVP PRN (09:39)
[2021-04-24] MEDS ORDERED: Bisacodyl 5 MG TAB PO SCH (09:45)
[2021-04-24 10:22] LABS: Troponin I 0.029 ng/mL (< 0.028)
[2021-04-24 11:47] LABS: Cardiac Risk 6.4 (Less than 4.5)
[2021-04-24 11:54] LABS: Hemoglobin A1c 7.2 % (4.0-6.0)
[2021-04-24] MEDS ORDERED: Ondansetron PF 4 MG/2 ML Vial IVP PRN (12:31)
[2021-04-24] MEDS ORDERED: Ondansetron ODT 4 MG TAB PO PRN (12:31)
[2021-04-24 13:13] VITALS: BMI 51.0
[2021-04-24 13:42] LABS: Clarity Clear (Clear); Glucose, Urine (Dipstick) Normal (Negative); Leukocyte Negative Leu/uL (Negative); Nitrite Negative (Negative); Protein, Urine (Dipstick) Negative (Neg-Trace); Specific Gravity, Urine 1.024 (1.002-1.036); pH, Urine 5.5 (5.0-9.0)
[2021-04-24 13:43] LABS: Bacteria/HPF None Seen HPF (None Seen); Bilirubin Negative (Negative); Blood, Urine Negative (Negative); Ketone, Urine Negative (Negative); RBC/HPF 0-3 HPF (0-3); Squamous Epithelial 0-3 HPF (0-3); Urobilinogen Normal mg/dL (Less than 2); WBC/HPF 0-3 HPF (0-3)
[2021-04-24 14:08] LABS: Troponin I 0.026 ng/mL (< 0.028)
[2021-04-24] MEDS: Nicotine 14 MG PATCH TD SCH (16:19)
[2021-04-24] MEDS: HumaLOG 300 UNITS/3 ML VIAL SC PRN (18:09)
[2021-04-24] MEDS: Acetaminophen 325 MG TAB PO PRN (19:33)
[2021-04-24] MEDS: Spironolactone 25 MG TAB PO SCH ×2 (20:59→21:16)
[2021-04-24] MEDS: Senokot S 8.6-50 MG TAB PO SCH ×2 (20:59→21:09)
[2021-04-24] MEDS: Atorvastatin Calcium 40 MG TAB PO SCH (20:59)
[2021-04-24] MEDS: Apixaban 5 MG TAB PO SCH (21:01)
[2021-04-24] MEDS: metFORMIN XR 500 MG TAB PO SCH (21:02)
[2021-04-24] MEDS: Lidocaine 5% Patch TD SCH (21:10)
[2021-04-25] MEDS ORDERED: Melatonin 3 MG TAB PO PRN ×2 (00:44→10:42)
[2021-04-25] MEDS ORDERED: Cyclobenzaprine 10 MG TAB PO PRN (00:44)
[2021-04-25] MEDS: HumaLOG 300 UNITS/3 ML VIAL SC PRN ×2 (06:07→11:02)
[2021-04-25] MEDS ORDERED: Potassium Chloride 10 MEQ TAB PO SCH (09:00)
[2021-04-25 09:21] LABS: Platelet Count 115 thou/uL (130-400)
[2021-04-25 09:23] LABS: Anion Gap 13 mmol/L (10-20); BUN (Urea Nitrogen) 24 mg/dL (8.4-25.7); Calc. Creatinine Clearance 201 mL/min (70-130); Calcium 9.2 mg/dL (7.8-10.44); Carbon Dioxide 29 mmol/L (23-31); Chloride 96 mmol/L (98-107); Glucose 165 mg/dL (80-115); Sodium 135 mmol/L (136-145)
[2021-04-25 09:28] LABS: Potassium 2.9 mmol/L (3.5-5.1)
[2021-04-25] MEDS: Senokot S 8.6-50 MG TAB PO SCH ×2 (09:31→20:00)
[2021-04-25] MEDS: Carvedilol 6.25 MG TAB PO SCH ×2 (09:32→16:23)
[2021-04-25] MEDS: Metolazone 5 MG TAB PO SCH (09:33)
[2021-04-25] MEDS: Ascorbic Acid 500 mg Chewable Tablet PO SCH (09:34)
[2021-04-25] MEDS: Apixaban 5 MG TAB PO SCH ×2 (09:35→20:06)
[2021-04-25] MEDS: Amiodarone 200 MG TAB PO SCH (09:35)
[2021-04-25] MEDS: Aspirin 81 mg Enteric Coated Tablet PO SCH (09:35)
[2021-04-25] MEDS: Bumetanide 1 MG TAB PO SCH ×2 (09:35→16:40)
[2021-04-25] MEDS: Polyethylene Glycol 3350 17 GM Packet PO SCH (09:36)
[2021-04-25] MEDS ORDERED: Potassium Chloride 20 MEQ TAB PO SCH ×5 (10:00→21:00)
[2021-04-25] MEDS: Spironolactone 25 MG TAB PO SCH ×2 (10:32→20:00)
[2021-04-25] MEDS: metFORMIN XR 500 MG TAB PO SCH ×2 (10:59→20:06)
[2021-04-25] MEDS: traMADol HCl 50 MG TAB PO PRN ×2 (11:00→20:07)
[2021-04-25] MEDS: Transdermal Patch Removal TOP SCH (12:04)
[2021-04-25 15:01] LABS: Potassium 2.9 mmol/L (3.5-5.1)
[2021-04-25] MEDS: Nicotine 14 MG PATCH TD SCH (15:16)
[2021-04-25] MEDS ORDERED: Potassium Chloride 20 MEQ in Premix Bag 1 BAG IVPB SCH (15:30)
[2021-04-25] MEDS ORDERED: Magnesium 2 GM/50 ML 2 GM in Premix Bag 1 BAG IVPB SCH (15:45)
[2021-04-25] MEDS: Potassium Chloride 20 MEQ TAB PO SCH (17:43)
[2021-04-25] MEDS: Atorvastatin Calcium 40 MG TAB PO SCH (20:07)
[2021-04-25] MEDS: Lidocaine 5% Patch TD SCH (20:15)
[2021-04-25 20:26] LABS: Potassium 3.3 mmol/L (3.5-5.1)
[2021-04-25] MEDS: Zolpidem Tartrate 5 MG TAB PO PRN (20:58)
[2021-04-26] MEDS: traMADol HCl 50 MG TAB PO PRN ×3 (03:33→17:45)
[2021-04-26 05:17] LABS: Anion Gap 10 mmol/L (10-20); BUN (Urea Nitrogen) 22 mg/dL (8.4-25.7); Calc. Creatinine Clearance 211 mL/min (70-130); Carbon Dioxide 33 mmol/L (23-31); Chloride 97 mmol/L (98-107); Glucose 161 mg/dL (80-115); Magnesium 1.9 mg/dL (1.6-2.6); Potassium 3.4 mmol/L (3.5-5.1); Sodium 137 mmol/L (136-145)
[2021-04-26] MEDS: Ascorbic Acid 500 mg Chewable Tablet PO SCH (08:03)
[2021-04-26] MEDS: Polyethylene Glycol 3350 17 GM Packet PO SCH (08:03)
[2021-04-26] MEDS: Potassium Chloride 20 MEQ TAB PO SCH (08:04)
[2021-04-26] MEDS: Senokot S 8.6-50 MG TAB PO SCH ×2 (08:04→20:45)
[2021-04-26] MEDS: Metolazone 5 MG TAB PO SCH (08:05)
[2021-04-26] MEDS: Apixaban 5 MG TAB PO SCH ×2 (08:06→20:44)
[2021-04-26] MEDS: Amiodarone 200 MG TAB PO SCH ×2 (08:06→20:43)
[2021-04-26] MEDS: Carvedilol 6.25 MG TAB PO SCH ×2 (08:06→17:45)
[2021-04-26] MEDS: Aspirin 81 mg Enteric Coated Tablet PO SCH (08:06)
[2021-04-26] MEDS: metFORMIN XR 500 MG TAB PO SCH ×2 (08:06→20:42)
[2021-04-26] MEDS: Transdermal Patch Removal TOP SCH (08:07)
[2021-04-26] MEDS: Spironolactone 25 MG TAB PO SCH ×2 (08:07→20:43)
[2021-04-26] MEDS: Bumetanide 1 MG TAB PO SCH (09:08)
[2021-04-26] MEDS: Nicotine 14 MG PATCH TD SCH (09:23)
[2021-04-26] MEDS ORDERED: Magnesium 2 GM/50 ML 2 GM in Premix Bag 1 BAG IVPB SCH (09:30)
[2021-04-26] MEDS ORDERED: HYDROcodone/Acetaminophen 5/325 mg Tablet PO SCH (09:30)
[2021-04-26] MEDS: HumaLOG 300 UNITS/3 ML VIAL SC PRN ×2 (11:19→17:45)
[2021-04-26 12:20] LABS: Anion Gap 12 mmol/L (10-20); BUN (Urea Nitrogen) 22 mg/dL (8.4-25.7); Calc. Creatinine Clearance 205 mL/min (70-130); Carbon Dioxide 30 mmol/L (23-31); Chloride 96 mmol/L (98-107); Glucose 168 mg/dL (80-115); Potassium 4.4 mmol/L (3.5-5.1); Sodium 134 mmol/L (136-145)
[2021-04-26] MEDS: Lidocaine 5% Patch TD SCH (20:42)
[2021-04-26] MEDS: Zolpidem Tartrate 5 MG TAB PO PRN (20:42)
[2021-04-26] MEDS: Ammonium Lactate 12% Lotion 225 GM BOT TOP SCH (20:44)
[2021-04-26] MEDS: Atorvastatin Calcium 40 MG TAB PO SCH (20:45)
[2021-04-27 07:06] LABS: Anion Gap 15 mmol/L (10-20); BUN (Urea Nitrogen) 18 mg/dL (8.4-25.7); Calc. Creatinine Clearance 235 mL/min (70-130); Calcium 8.6 mg/dL (7.8-10.44); Carbon Dioxide 23 mmol/L (23-31); Chloride 96 mmol/L (98-107); Glucose 156 mg/dL (80-115); Sodium 130 mmol/L (136-145)
[2021-04-27] MEDS: Bumetanide 1 MG TAB PO SCH ×2 (07:47→16:24)
[2021-04-27] MEDS: Spironolactone 25 MG TAB PO SCH ×2 (07:47→20:39)
[2021-04-27] MEDS: Metolazone 5 MG TAB PO SCH (07:47)
[2021-04-27] MEDS: Apixaban 5 MG TAB PO SCH ×2 (07:49→20:36)
[2021-04-27] MEDS: Polyethylene Glycol 3350 17 GM Packet PO SCH (07:49)
[2021-04-27] MEDS: Carvedilol 6.25 MG TAB PO SCH ×2 (07:49→17:00)
[2021-04-27] MEDS: Aspirin 81 mg Enteric Coated Tablet PO SCH (07:49)
[2021-04-27] MEDS: Senokot S 8.6-50 MG TAB PO SCH ×2 (07:49→20:36)
[2021-04-27] MEDS: Amiodarone 200 MG TAB PO SCH ×2 (07:50→20:38)
[2021-04-27] MEDS: Acetaminophen 325 MG TAB PO PRN ×2 (07:50→14:46)
[2021-04-27] MEDS: metFORMIN XR 500 MG TAB PO SCH ×2 (07:50→20:36)
[2021-04-27] MEDS: Potassium Chloride 20 MEQ TAB PO SCH (07:50)
[2021-04-27] MEDS: Ascorbic Acid 500 mg Chewable Tablet PO SCH (07:50)
[2021-04-27] MEDS: Diclofenac 1% 100 GM GEL TP SCH ×4 (07:52→20:38)
[2021-04-27] MEDS: traMADol HCl 50 MG TAB PO PRN ×3 (07:52→20:37)
[2021-04-27] MEDS: Ammonium Lactate 12% Lotion 225 GM BOT TOP SCH ×2 (07:52→20:38)
[2021-04-27] MEDS: Transdermal Patch Removal TOP SCH (08:42)
[2021-04-27] MEDS: predniSONE 20 MG TAB PO PRN ×3 (09:13→17:00)
[2021-04-27] MEDS: HumaLOG 300 UNITS/3 ML VIAL SC PRN ×3 (09:14→17:00)
[2021-04-27] MEDS: Magnesium Oxide 400 MG TAB PO SCH (09:26)
[2021-04-27] MEDS ORDERED: Colchicine 0.6 MG TAB PO PRN (10:32)
[2021-04-27] MEDS: Nicotine 14 MG PATCH TD SCH (10:38)
[2021-04-27] MEDS: Atorvastatin Calcium 40 MG TAB PO SCH (20:37)
[2021-04-27] MEDS: Zolpidem Tartrate 5 MG TAB PO PRN (20:37)
[2021-04-27] MEDS: Lidocaine 5% Patch TD SCH (20:38)
[2021-04-28 05:09] LABS: Hemoglobin 14.9 g/dL (14.0-18.0); Platelet Count 133 thou/uL (130-400)
[2021-04-28 05:31] LABS: Anion Gap 11 mmol/L (10-20); BUN (Urea Nitrogen) 21 mg/dL (8.4-25.7); Calc. Creatinine Clearance 201 mL/min (70-130); Carbon Dioxide 30 mmol/L (23-31); Chloride 94 mmol/L (98-107); Glucose 214 mg/dL (80-115); Potassium 3.9 mmol/L (3.5-5.1); Sodium 131 mmol/L (136-145)
[2021-04-28] MEDS: HumaLOG 300 UNITS/3 ML VIAL SC PRN ×2 (06:22→11:22)
[2021-04-28] MEDS: Bumetanide 1 MG TAB PO SCH ×2 (08:58→17:18)
[2021-04-28] MEDS: metFORMIN XR 500 MG TAB PO SCH ×2 (08:59→20:58)
[2021-04-28] MEDS: Polyethylene Glycol 3350 17 GM Packet PO SCH (08:59)
[2021-04-28] MEDS: Aspirin 81 mg Enteric Coated Tablet PO SCH (08:59)
[2021-04-28] MEDS: Ascorbic Acid 500 mg Chewable Tablet PO SCH (08:59)
[2021-04-28] MEDS: Amiodarone 200 MG TAB PO SCH ×2 (09:00→20:58)
[2021-04-28] MEDS: Carvedilol 6.25 MG TAB PO SCH ×2 (09:00→17:18)
[2021-04-28] MEDS: Potassium Chloride 20 MEQ TAB PO SCH (09:00)
[2021-04-28] MEDS: Apixaban 5 MG TAB PO SCH ×2 (09:00→20:58)
[2021-04-28] MEDS: Magnesium Oxide 400 MG TAB PO SCH (09:00)
[2021-04-28] MEDS: Ammonium Lactate 12% Lotion 225 GM BOT TOP SCH ×2 (09:01→21:01)
[2021-04-28] MEDS: Transdermal Patch Removal TOP SCH (09:01)
[2021-04-28] MEDS: Senokot S 8.6-50 MG TAB PO SCH ×2 (09:03→21:15)
[2021-04-28] MEDS: Spironolactone 25 MG TAB PO SCH ×2 (09:03→21:20)
[2021-04-28] MEDS: Diclofenac 1% 100 GM GEL TP SCH ×4 (09:05→20:59)
[2021-04-28] MEDS: Nicotine 14 MG PATCH TD SCH (09:55)
[2021-04-28] MEDS: traMADol HCl 50 MG TAB PO PRN (13:48)
[2021-04-28] MEDS: Zolpidem Tartrate 5 MG TAB PO PRN (20:58)
[2021-04-28] MEDS: Atorvastatin Calcium 40 MG TAB PO SCH (20:58)
[2021-04-28] MEDS: Lidocaine 5% Patch TD SCH (20:58)
[2021-04-29] MEDS: Acetaminophen 325 MG TAB PO PRN (03:12)
[2021-04-29 05:47] LABS: Anion Gap 12 mmol/L (10-20); BUN (Urea Nitrogen) 25 mg/dL (8.4-25.7); Calc. Creatinine Clearance 225 mL/min (70-130); Calcium 8.9 mg/dL (7.8-10.44); Carbon Dioxide 28 mmol/L (23-31); Chloride 96 mmol/L (98-107); Glucose 139 mg/dL (80-115); Potassium 3.5 mmol/L (3.5-5.1); Sodium 132 mmol/L (136-145)
[2021-04-29] MEDS: Ascorbic Acid 500 mg Chewable Tablet PO SCH (09:53)
[2021-04-29] MEDS: metFORMIN XR 500 MG TAB PO SCH (09:54)
[2021-04-29] MEDS: Potassium Chloride 20 MEQ TAB PO SCH (09:54)
[2021-04-29] MEDS: Apixaban 5 MG TAB PO SCH (09:54)
[2021-04-29] MEDS: Magnesium Oxide 400 MG TAB PO SCH (09:55)
[2021-04-29] MEDS: Carvedilol 6.25 MG TAB PO SCH ×2 (09:55→17:19)
[2021-04-29] MEDS: Aspirin 81 mg Enteric Coated Tablet PO SCH (09:55)
[2021-04-29] MEDS: Amiodarone 200 MG TAB PO SCH (09:55)
[2021-04-29] MEDS: Bumetanide 1 MG TAB PO SCH ×2 (09:56→15:55)
[2021-04-29] MEDS: Transdermal Patch Removal TOP SCH (09:56)
[2021-04-29] MEDS: Metolazone 5 MG TAB PO SCH (09:56)
[2021-04-29] MEDS: Spironolactone 25 MG TAB PO SCH (09:57)
[2021-04-29] MEDS: Diclofenac 1% 100 GM GEL TP SCH ×3 (09:57→17:19)
[2021-04-29] MEDS: Senokot S 8.6-50 MG TAB PO SCH ×2 (09:57→12:38)
[2021-04-29] MEDS: Nicotine 14 MG PATCH TD SCH (09:57)
[2021-04-29] MEDS: Polyethylene Glycol 3350 17 GM Packet PO SCH (09:57)
[2021-04-29] MEDS: Ammonium Lactate 12% Lotion 225 GM BOT TOP SCH (09:59)
[2021-04-29] MEDS: HumaLOG 300 UNITS/3 ML VIAL SC PRN (12:38)
[2021-04-29 12:45] VITALS: TEMP 97.5
[2021-04-29 15:54] VITALS: BP 127/74
== END 2021-04-29 17:15 | disposition home health service (06) | DRG 683 ==
LOC: ERS 06:03 → ERHOLD 08:08 → 2NO 11:37
PROVIDERS: ADMIT Family Medicine; ATTEND Family Medicine
PROC: 4B02XTZ Measurement of Cardiac Defibrillator, External Approach (ICD-10-PCS; principal; 2021-04-25)
DX: N17.9 Acute kidney failure, unspecified (principal); I47.2 Ventricular tachycardia; I50.22 Chronic systolic (congestive) heart failure; E87.1 Hypo-osmolality and hyponatremia; I48.19 Other persistent atrial fibrillation; Z68.43 Body mass index [BMI] 50.0-59.9, adult; Z20.822 Contact with and (suspected) exposure to COVID-19; F17.210 Nicotine dependence, cigarettes, uncomplicated; W17.89XA Other fall from one level to another, initial encounter; E11.51 Type 2 diabetes mellitus with diabetic peripheral angiopathy without gangrene; R42 Dizziness and giddiness; I11.0 Hypertensive heart disease with heart failure; E78.5 Hyperlipidemia, unspecified; D69.6 Thrombocytopenia, unspecified; I25.118 Atherosclerotic heart disease of native coronary artery with other forms of angina pectoris; M10.9 Gout, unspecified; R79.89 Other specified abnormal findings of blood chemistry; I45.81 Long QT syndrome; E87.6 Hypokalemia; E66.01 Morbid (severe) obesity due to excess calories; E78.00 Pure hypercholesterolemia, unspecified; I49.3 Ventricular premature depolarization; I87.2 Venous insufficiency (chronic) (peripheral); I25.5 Ischemic cardiomyopathy; J44.9 Chronic obstructive pulmonary disease, unspecified; L85.9 Epidermal thickening, unspecified; M79.672 Pain in left foot; M79.671 Pain in right foot; Z53.29 Procedure and treatment not carried out because of patient's decision for other reasons; S93.401A Sprain of unspecified ligament of right ankle, initial encounter; M19.90 Unspecified osteoarthritis, unspecified site; Z79.01 Long term (current) use of anticoagulants; Z79.84 Long term (current) use of oral hypoglycemic drugs; Z79.899 Other long term (current) drug therapy; Z99.3 Dependence on wheelchair; Z81.8 Family history of other mental and behavioral disorders; Z71.6 Tobacco abuse counseling; Z95.810 Presence of automatic (implantable) cardiac defibrillator; I25.2 Old myocardial infarction; Z95.1 Presence of aortocoronary bypass graft; Z95.5 Presence of coronary angioplasty implant and graft; Z90.49 Acquired absence of other specified parts of digestive tract; Z82.49 Family history of ischemic heart disease and other diseases of the circulatory system; Z91.19 Patient's noncompliance with other medical treatment and regimen
CPT/HCPCS: 0240U; 36415; 36416; 70450; 71045; 72125; 80048; 80053; 80061; 81001; 82553; 83036; 83690; 83735; 83880; 83930; 83935; 84300; 84443; 84484; 84550; 85014; 85018; 85025; 85049; 93005; 93306; 93880; J1815; J3475; J7512